=== PATIENT | female | born 1955 | race Caucasian/White ===

== ENCOUNTER 2020-12-13 15:55 | Inpatient (IN) | payer OTHER, SELFPAY ==
--- NOTE | ~2020-12-13 | XR_ITS ---
EXAMINATION: XR CHEST CLINICAL INFORMATION: Overdose COMPARISON: Chest radiographs 04/10/2018, 11/21/2017 TECHNIQUE: Portable upright AP view of the chest was obtained. FINDINGS: The heart is normal in size. The vascularity is normal. There is no airspace consolidation or groundglass opacity. Some mild coarsening central bronchiolar markings is similar to prior remote exam 2018. The costophrenic sulci are clear. The hilar and mediastinal contours are unremarkable. No acute bony abnormality. There is old appearing healed fracture proximal right humerus and probable degenerative changes thoracic spine. XR/XR chest 1V IMPRESSION: Unremarkable examination.
--- NOTE | ~2020-12-13 | CT_ITS ---
EXAMINATION: CT HEAD WITHOUT CONTRAST CLINICAL INFORMATION: Headbanging, patient states head trauma COMPARISON: None TECHNIQUE: Contiguous axial imaging was performed from the skull base to vertex without intravenous administration of contrast. This CT examination was performed using dose optimization techniques as appropriate, variously including the following: *Automated exposure control *Adjustment of mA and/or kV according to patient size (this includes techniques or standardized protocols for targeted exams where dose is matched to indication/reason for exam; i.e. extremities or head) *Use of iterative reconstruction technique DLP: 654.14 mGy-cm FINDINGS: There is no evidence of acute intracranial hemorrhage or territorial infarction. No abnormal mass effect or midline shift is seen. Mildly enlarged retrocerebellar subarachnoid space. Danielson to white matter differentiation is well preserved. No extra-axial fluid collections are identified. The ventricles are normal in size. There is no abnormal attenuation within the brain parenchyma. The osseous structures and soft tissues are normal. The mastoid air cells and visualized portions of the paranasal sinuses are well aerated. CT/CT head/brain wo con IMPRESSION: No acute intracranial pathology.
[2020-12-13 16:07] VITALS: BP 121/72; PULSE 63; RESP 16; TEMP 36.7; O2SAT 95; BMI 36.7
--- NOTE | 2020-12-13 16:34 | ED.OVERDOSE ---
HPI - Overdose General Chief Complaint: Overdose Stated Complaint: SI (overdose) Time Seen by Provider: 12/13/20 16:26 Source: patient Mode of arrival: ambulatory Limitations: no limitations History of Present Illness HPI Narrative: 65 years old female with history of PTSD, major depression, multiple suicide attempt alive, came in after overdosed on her home medication trying to attempt suicide, patient took 20-30 pills of 10 mg of propranolol/500 mg of Seroquel/1200 mg of gabapentin/20 mg of Valium, patient took also 120 mg of ketamine (double of her daily dose). Patient took hold this at 08:00 o'clock in the morning. Patient admitting to chronic depression, stated no point to live . Related Data Allergies Allergy/AdvReac Type Severity Reaction Status Date / Time acetaminophen [Percocet] Allergy Unknown Verified 06/15/19 00:00 ampicillin [AMPICILLIN] Allergy Unknown ERYTHEMA Unverified 07/21/20 15:48 NODOSUM (LEG SWELLING) droperidol [From INAPSINE] Allergy Unknown SEIZURES Unverified 07/21/20 15:48 oxycodone [From PERCOCET] Allergy Unknown DIFFICULTY Unverified 07/21/20 15:48 BREATHING trazodone [TRAZODONE] Allergy Unknown UNKNOWN Unverified 07/21/20 15:48 erythromycin base AdvReac Unknown STOMACH Unverified 07/21/20 15:48 [ERYTHROMYCIN BASE] UPSET Fish Containing Products AdvReac Unknown NAUSEA Unverified 07/21/20 15:48 Erythromycin Allergy Unknown Uncoded 06/15/19 00:00 Inapsine Allergy Unknown Uncoded 06/15/19 00:00 Review of Systems Review of Systems: All other systems are reviewed and are negative Constitutional: Reports as per HPI and Reports no additional constitutional complaints Eyes: Reports as per HPI and Reports no additional eye complaints Reports system reviewed and no additional complaints, except as documented Cardiovascular: Reports as per HPI and Reports no additional cardiovascular complaints Respiratory: Reports as per HPI and Reports no additional respiratory complaints Gastrointestinal: Reports as per HPI and Reports no additional gastrointestinal complaints Genitourinary: Reports no additional female genitourinary complaints Musculoskeletal: Reports no additional musculoskeletal complaints Skin/Breast: Reports system reviewed and no additional complaints, except as docu Psychiatric: Reports no additional psychiatric complaints Endocrine: Reports no additional endocrine complaints Hematologic/Lymphatic: Reports no additional hematologic/lymphatic complaints Allergic/Immunologic: Reports no additional allergic/immunologic complaints Reports system reviewed and no additional complaints, except as documented and Reports Abnormal speech present FOR[facility]LY [facility] Past Medical History Medical History Anxiety High cholesterol HTN (hypertension) Major depression OCD (obsessive compulsive disorder) PTSD (post-traumatic stress disorder) Social History Social History Smoked in Last 30 Days: No Use of substances other than those prescribed or required for medical reasons: No Advance Directives: No Advance Directives Information Provided: No Physical Exam Vital Signs: Vital Signs: Last Vital Signs Temp 98.0 F 12/13/20 18:00 Pulse 61 12/13/20 20:00 Resp 15 12/13/20 20:00 BP 116/69 12/13/20 20:00 Pulse Ox 96 12/13/20 20:00 Body Mass Index 36.7 Vital signs have been reviewed as normal and appeared to be correct. Blood pressure normal. Heart rate normal. Respiration rate normal. Temperature normal. Oxygen saturation normal. Appearance: Alert. Oriented X3. No acute distress. Head: Normal external exam. Normocephalic. Atraumatic. No Martínez signs noted. No raccoon eyes noted Eyes: PERRLA. EOMI. Conjunctiva and sclera normal. Eyelids normal. ENT: EAC normal. TM's Normal. Pharynx normal. Uvula midline. Moist mucous membranes. No trismus noted. No drooling noted. No muffled voice noted. Neck: Normal inspection. Neck supple. FROM. No adenopathy. Thyroid Normal. No meningeal signs. No neck mass noted. CVS: Normal heart rate and rhythm. Heart sound normal. No murmurs noted. Pulses normal throughout. Respiratory: No respiratory distress. Painless inspiration. Breath sounds normal. No wheezes/rales/rhonchi noted. Chest nontender. No accessory muscle usage noted or decreased air movement noted. Abdomen: Soft and nontender. Bowel sounds normal in all 4 quadrants. No distention noted. No organomegaly noted. No visible injury noted. Back: No CVA tenderness. Full range of motion noted. Skin: Skin warm and dry. Normal skin color. Normal skin turgor. No rashes/lesions/lacerations noted. Extremities: No lower extremity edema. Extremities exhibit normal range of motion. Extremities nontender. Neuro: Oriented X 3. No motor deficit. No sensory deficit. Reflexes normal. Psych: Appearance patient dressed and well kempt. Behavior: Appropriate Speech at normal rate, volume, rhythm. Orientation: Oriented x4. Thought process and content: Appropriate SI/HI: Present with serious attempt. Memory: appropriate. Intellect: Appropriate Judgment and insight: Given the suicidal attempt out quality poor. Course Course Course Narrative: Assessment and plan. 65 years old came in after attempt suicide by overdosing on medication, patient was observed in the emergency department for many hours, poison Control was contacted, patient had 2 unchanged EKG with no concerns, labs are unremarkable. Patient was evaluated by care team, patient will be admitted to awaiting for bed availability. Patient was Section 12 still going upstairs. MDM - Overdose Lab Data Attestation: I reviewed the patient's lab results. Result diagrams: 12/13/20 17:53 12/13/20 17:53 Labs: Lab Results 12/13/20 12/13/20 12/13/20 Range/Units 17:53 17:53 17:53 WBC 6.9 (4.8-10.8) X10*3/uL RBC 4.47 (4.20-5.50) X10*6/uL Hgb 13.3 (12.0-16.0) g/dl Hct 40.9 (37-47) % MCV 91.5 (80-98) fL MCH 29.8 (27.0-33.0) pg MCHC 32.5 (31.0-35.0) g/dl RDW 14.2 (11.0-16.0) % Plt Count 142 L (160-400) X10*3/uL MPV 10.6 (9.4-12.3) fL Immature Gran % (Auto) 0.4 (0.0-0.4) % Neut % (Auto) 64.7 (45-73) % Lymph % (Auto) 22.5 (20-40) % [place] % (Auto) 9.1 (2-11) % Eos % (Auto) 2.9 (0-4) % Baso % (Auto) 0.4 (0-2) % Lymph # (Auto) 1.6 (1.2-4.9) X10*3/uL [place] # (Auto) 0.6 (0.1-1.2) X10*3/uL Eos # (Auto) 0.2 (0.0-0.4) X10*3/uL Baso # (Auto) 0.0 (0.0-0.2) X10*3/uL Abs Immat Gran (auto) 0.03 (0.00-0.03) X10*3/uL Absolute Neuts (auto) 4.5 (2.0-8.3) X10*3/uL Absolute Nucleated RBC 0.000 (0.0-0.012) X10*3/uL Nucleated RBC % (auto) 0.0 (0.0-0.2) /100WBC Sodium 142 (135-145) mmol/L Potassium 4.4 (3.3-5.1) mmol/L Chloride 103 (96-108) mmol/L Carbon Dioxide 30 H (22-29) mmol/L Anion Gap 13 (12-20) BUN 14 (9-16) mg/dL Creatinine 0.99 (0.5-1.4) mg/dL Estim Creat Clear Calc 64.9 Estimated GFR 56 Random Glucose 92 (60-115) mg/dL Calcium 8.7 (8.4-10.2) mg/dL Total Bilirubin 0.2 (0.0-1.0) mg/dL Direct Bilirubin < 0.2 (0.0-0.5) mg/dL AST 19 (5-31) U/L ALT 12 (0-31) U/L Alkaline Phosphatase 65 (39-117) U/L Troponin I High Sens (<3.5-17.0) ng/L Total Protein 6.4 L (6.5-8.0) g/dL Albumin 3.7 (3.5-5.0) g/dL Lipase (8-78) U/L Urine Color Urine Appearance Urine pH (5.0-8.0) Ur Specific [place] (1.005-1.025) Urine Protein (NEG-TRACE) MG/DL Urine Glucose (UA) (NEG) MG/DL Urine Ketones (NEG) MG/DL Urine Blood (NEG) Urine Nitrite (NEG) Ur Leukocyte Esterase (NEG) Salicylates < 5.0 L (15-30) mg/dL Urine Opiates Screen (Not Detect) Acetaminophen < 1 (<30) mcg/mL Ur Barbiturates Screen (Not Detect) Ur Phencyclidine Scrn (Not Detect) Ur Amphetamines Screen (Not Detect) U Benzodiazepines Scrn (Not Detect) Urine Cocaine Screen (Not Detect) U Marijuana (THC) Screen (Not Detect) Ethyl Alcohol < 10 mg/dL COVID-19 (MELINA) (Negative) COVID-19 Clin Com 12/13/20 12/13/20 12/13/20 Range/Units 17:53 17:53 18:40 WBC (4.8-10.8) X10*3/uL RBC (4.20-5.50) X10*6/uL Hgb (12.0-16.0) g/dl Hct (37-47) % MCV (80-98) fL MCH (27.0-33.0) pg MCHC (31.0-35.0) g/dl RDW (11.0-16.0) % Plt Count (160-400) X10*3/uL MPV (9.4-12.3) fL Immature Gran % (Auto) (0.0-0.4) % Neut % (Auto) (45-73) % Lymph % (Auto) (20-40) % [place] % (Auto) (2-11) % Eos % (Auto) (0-4) % Baso % (Auto) (0-2) % Lymph # (Auto) (1.2-4.9) X10*3/uL [place] # (Auto) (0.1-1.2) X10*3/uL Eos # (Auto) (0.0-0.4) X10*3/uL Baso # (Auto) (0.0-0.2) X10*3/uL Abs Immat Gran (auto) (0.00-0.03) X10*3/uL Absolute Neuts (auto) (2.0-8.3) X10*3/uL Absolute Nucleated RBC (0.0-0.012) X10*3/uL Nucleated RBC % (auto) (0.0-0.2) /100WBC Sodium (135-145) mmol/L Potassium (3.3-5.1) mmol/L Chloride (96-108) mmol/L Carbon Dioxide (22-29) mmol/L Anion Gap (12-20) BUN (9-16) mg/dL Creatinine (0.5-1.4) mg/dL Estim Creat Clear Calc Estimated GFR Random Glucose (60-115) mg/dL Calcium (8.4-10.2) mg/dL Total Bilirubin (0.0-1.0) mg/dL Direct Bilirubin (0.0-0.5) mg/dL AST (5-31) U/L ALT (0-31) U/L Alkaline Phosphatase (39-117) U/L Troponin I High Sens < 3.5 (<3.5-17.0) ng/L Total Protein (6.5-8.0) g/dL Albumin (3.5-5.0) g/dL Lipase 33 (8-78) U/L Urine Color Urine Appearance Urine pH (5.0-8.0) Ur Specific [place] (1.005-1.025) Urine Protein (NEG-TRACE) MG/DL Urine Glucose (UA) (NEG) MG/DL Urine Ketones (NEG) MG/DL Urine Blood (NEG) Urine Nitrite (NEG) Ur Leukocyte Esterase (NEG) Salicylates (15-30) mg/dL Urine Opiates Screen (Not Detect) Acetaminophen (<30) mcg/mL Ur Barbiturates Screen (Not Detect) Ur Phencyclidine Scrn (Not Detect) Ur Amphetamines Screen (Not Detect) U Benzodiazepines Scrn (Not Detect) Urine Cocaine Screen (Not Detect) U Marijuana (THC) Screen (Not Detect) Ethyl Alcohol mg/dL COVID-19 (MELINA) Negative (Negative) COVID-19 Clin Com See Note 12/13/20 12/13/20 Range/Units 19:50 19:50 WBC (4.8-10.8) X10*3/uL RBC (4.20-5.50) X10*6/uL Hgb (12.0-16.0) g/dl Hct (37-47) % MCV (80-98) fL MCH (27.0-33.0) pg MCHC (31.0-35.0) g/dl RDW (11.0-16.0) % Plt Count (160-400) X10*3/uL MPV (9.4-12.3) fL Immature Gran % (Auto) (0.0-0.4) % Neut % (Auto) (45-73) % Lymph % (Auto) (20-40) % [place] % (Auto) (2-11) % Eos % (Auto) (0-4) % Baso % (Auto) (0-2) % Lymph # (Auto) (1.2-4.9) X10*3/uL [place] # (Auto) (0.1-1.2) X10*3/uL Eos # (Auto) (0.0-0.4) X10*3/uL Baso # (Auto) (0.0-0.2) X10*3/uL Abs Immat Gran (auto) (0.00-0.03) X10*3/uL Absolute Neuts (auto) (2.0-8.3) X10*3/uL Absolute Nucleated RBC (0.0-0.012) X10*3/uL Nucleated RBC % (auto) (0.0-0.2) /100WBC Sodium (135-145) mmol/L Potassium (3.3-5.1) mmol/L Chloride (96-108) mmol/L Carbon Dioxide (22-29) mmol/L Anion Gap (12-20) BUN (9-16) mg/dL Creatinine (0.5-1.4) mg/dL Estim Creat Clear Calc Estimated GFR Random Glucose (60-115) mg/dL Calcium (8.4-10.2) mg/dL Total Bilirubin (0.0-1.0) mg/dL Direct Bilirubin (0.0-0.5) mg/dL AST (5-31) U/L ALT (0-31) U/L Alkaline Phosphatase (39-117) U/L Troponin I High Sens (<3.5-17.0) ng/L Total Protein (6.5-8.0) g/dL Albumin (3.5-5.0) g/dL Lipase (8-78) U/L Urine Color YELLOW Urine Appearance CLEAR Urine pH 5.5 (5.0-8.0) Ur Specific [place] 1.025 (1.005-1.025) Urine Protein NEG (NEG-TRACE) MG/DL Urine Glucose (UA) NEG (NEG) MG/DL Urine Ketones NEG (NEG) MG/DL Urine Blood NEG (NEG) Urine Nitrite NEG (NEG) Ur Leukocyte Esterase NEG (NEG) Salicylates (15-30) mg/dL Urine Opiates Screen Not Detected (Not Detect) Acetaminophen (<30) mcg/mL Ur Barbiturates Screen Not Detected (Not Detect) Ur Phencyclidine Scrn Not Detected (Not Detect) Ur Amphetamines Screen Not Detected (Not Detect) U Benzodiazepines Scrn POSITIVE H (Not Detect) Urine Cocaine Screen Not Detected (Not Detect) U Marijuana (THC) Screen Not Detected (Not Detect) Ethyl Alcohol mg/dL COVID-19 (MELINA) (Negative) COVID-19 Clin Com Imaging Data Chest x-ray: Radiologist's impression: Unremarkable examination ECG Data Interpretation: EKG 1. Normal sinus rhythm at 64 beats per minutes, normal intervals, left axis deviation, nonspecific T-wave inversion and flattening. EKG 2. Normal sinus rhythm at 59 beats per minutes, left axis deviation, normal intervals, no change from the previous EKG. Discharge Plan Discharge Clinical Impression: Drug overdose, Suicide attempt by multiple drug overdose, Major depression Patient Disposition: Home, Self-Care
--- NOTE | 2020-12-13 16:42 | ECG_ITS ---
Test Reason : ABNORMAL ECG Blood Pressure : / mmHG Vent. Rate : 059 BPM Atrial Rate : 059 BPM P-R Int : 176 ms QRS Dur : 090 ms QT Int : 420 ms P-R-T Axes : 031 -03 029 degrees QTc Int : 415 ms Sinus bradycardia Otherwise normal ECG When compared with ECG of 13-DEC-2020 16:12, No significant change was found Referred By: Ayala Coreas Electronically Signed By:VIRGINIA GUTHRIE
[2020-12-13 17:16] VITALS: BP 122/54; PULSE 61; RESP 14; O2SAT 97
[2020-12-13] MEDS: 0.9 % Sodium Chloride 1,000 ML 999 ML IVCONT (17:24)
[2020-12-13 18:00] VITALS: BP 130/60; PULSE 66; RESP 16; TEMP 36.7; O2SAT 99
[2020-12-13 18:19] LABS: PLT CLUMP 1; SCAN SMEAR FLAG 1
[2020-12-13 18:21] LABS: Basophils Percent Auto 0.4 % (0-2); Eosinophils Absolute Auto 0.2 X10*3/uL (0.0-0.4); Eosinophils Percent Auto 2.9 % (0-4); Hematocrit 40.9 % (37-47); Hemoglobin 13.3 g/dl (12.0-16.0); Imm Gran Abs Auto 0.03 X10*3/uL (0.00-0.03); Imm Gran Pct Auto 0.4 % (0.0-0.4); Lymphocytes Absolute Auto 1.6 X10*3/uL (1.2-4.9); Lymphocytes Percent Auto 22.5 % (20-40); Mean Corpuscular HGB Conc 32.5 g/dl (31.0-35.0); Mean Corpuscular Hemoglobin 29.8 pg (27.0-33.0); Mean Corpuscular Volume 91.5 fL (80-98); Mean Platelet Volume 10.6 fL (9.4-12.3); Monocytes Absolute Auto 0.6 X10*3/uL (0.1-1.2); Monocytes Percent Auto 9.1 % (2-11); Neutrophils Absolute Auto 4.5 X10*3/uL (2.0-8.3); Neutrophils Percent Auto 64.7 % (45-73); Platelet Count 142 X10*3/uL (160-400); Red Blood Count 4.47 X10*6/uL (4.20-5.50); Red Cell Distribution Width 14.2 % (11.0-16.0); White Blood Count 6.9 X10*3/uL (4.8-10.8)
[2020-12-13 18:22] LABS: MANUAL DIFF FLAG NO
[2020-12-13 18:31] LABS: Ethanol < 10 mg/dL
[2020-12-13 18:34] LABS: Lipase 33 U/L (8-78)
[2020-12-13 18:37] VITALS: BP 117/55; PULSE 61; RESP 15; O2SAT 96
[2020-12-13 18:39] LABS: Troponin-I High Sensitivity < 3.5 ng/L (<3.5-17.0)
[2020-12-13 18:41] LABS: Acetaminophen LAB < 1 mcg/mL (<30); Alanine Aminotransferase 12 U/L (0-31); Albumin Level 3.7 g/dL (3.5-5.0); Alkaline Phosphatase 65 U/L (39-117); Anion Gap 13 (12-20); Aspartate Amino Transferase 19 U/L (5-31); Bilirubin Direct < 0.2 mg/dL (0.0-0.5); Bilirubin Total 0.2 mg/dL (0.0-1.0); Blood Urea Nitrogen 14 mg/dL (9-16); Calcium 8.7 mg/dL (8.4-10.2); Carbon Dioxide 30 mmol/L (22-29); Chloride 103 mmol/L (96-108); Creatinine Clr Calc Pharmacy 64.9; Estimated Glomerular Filt Rate 56; Glucose Random 92 mg/dL (60-115); Potassium 4.4 mmol/L (3.3-5.1); Salicylate < 5.0 mg/dL (15-30); Sodium 142 mmol/L (135-145); Total Protein 6.4 g/dL (6.5-8.0)
[2020-12-13 19:02] LABS: COVID-19 Test Negative (Negative); IDNOW Serial# 9DD0AD1C
[2020-12-13 19:57] LABS: Glucose Urine UA NEG (NEG); Leukocyte Esterase Urine NEG (NEG); Nitrite Urine NEG (NEG); PH 5.5 (5.0-8.0); Specific Gravity - Urine 1.025 (1.005-1.025); Urine Blood NEG (NEG); Urine Ketones NEG (NEG); Urine Protein NEG (NEG-TRACE)
[2020-12-13 19:58] LABS: Appearance Urine CLEAR; Color Urine YELLOW
[2020-12-13 20:00] VITALS: BP 116/69; PULSE 61; RESP 15; O2SAT 96
[2020-12-13 20:22] LABS: Amphetamine Screen Urine Not Detected (Not Detect); Barbiturates, Urine Not Detected (Not Detect); Benzodiazepines Screen Urine POSITIVE (Not Detect); Cannabinoid Screen Urine Not Detected (Not Detect); Cocaine Screen Urine Not Detected (Not Detect); Opiate Screen Urine Not Detected (Not Detect); Phencyclidine Screen Urine Not Detected (Not Detect)
--- NOTE | 2020-12-13 21:49 | PC.NURSE ---
Patient just got transferred from main ED, called care team and received report that patient has been assessed, disposition is [id number] inpatient bed search, possible admission to [facility] in the morning if there is bed opening, patient ambulated without gait deficits, currently on phone talking to her , denied distress, will continue to monitor.
--- NOTE | 2020-12-13 22:10 | MHC.CARE ---
CARE team evaluated pt with disposition for inpt psych admission, likely [facility] admission tomorrow.
[2020-12-13 23:51] VITALS: PULSE 119
[2020-12-14] VITALS (7 sets, daily range): BP systolic 115–137; BP diastolic 53–66; PULSE 63–72; RESP 16–18; TEMP 35.3–36.2; O2SAT 94–97
--- NOTE | 2020-12-14 | ECG_ITS ---
Test Reason : OD Blood Pressure : / mmHG Vent. Rate : 064 BPM Atrial Rate : 064 BPM P-R Int : 162 ms QRS Dur : 090 ms QT Int : 398 ms P-R-T Axes : 033 001 025 degrees QTc Int : 410 ms Normal sinus rhythm Normal ECG When compared with ECG of 30-MAR-2020 15:52, No significant change was found Referred By: Ayala Coreas Electronically Signed By:VIRGINIA GUTHRIE
[2020-12-14] MEDS: diazePAM 5 MG TABLET 10 MG PO (00:01)
[2020-12-14] MEDS: QUEtiapine Fumarate 200 MG TABLET PO ×2 (00:01→21:56)
[2020-12-14] MEDS: Acetaminophen 325 MG TABLET 650 MG PO ×2 (05:46→16:28)
--- NOTE | 2020-12-14 07:53 | PC.NURSE ---
pt denies si , states that she only wanted to sleep for a little bit and get a break , anxious about finances and cost for her and her paying for hospitalization as they have been getting $bills for healthcare as they switched insurance recently, i told her she would get the opportunity to talk w the CARE team again
[2020-12-14] MEDS: Gabapentin 400 MG CAPSULE PO ×4 (08:19→21:57)
[2020-12-14] MEDS: QUEtiapine Fumarate 100 MG TABLET PO ×2 (08:20→16:15)
[2020-12-14] MEDS: Methylphenidate HCl 10 MG TABLET 20 MG PO ×3 (08:20→16:13)
[2020-12-14] MEDS: Cyanocobalamin (Vitamin B-12) 1,000 MCG TABLET 1000 MCG PO (08:20)
[2020-12-14] MEDS: diazePAM 5 MG TABLET PO ×2 (08:20→16:13)
[2020-12-14] MEDS: Propranolol HCL 10 MG TABLET PO ×2 (08:20→16:17)
--- NOTE | 2020-12-14 08:34 | PC.NURSE ---
pt states she was weened off zoloft recently and didn't want to take
--- NOTE | 2020-12-14 09:10 | ECG_ITS ---
Test Reason : MEDCLEARANCE Blood Pressure : / mmHG Vent. Rate : 062 BPM Atrial Rate : 062 BPM P-R Int : 158 ms QRS Dur : 096 ms QT Int : 404 ms P-R-T Axes : 031 004 022 degrees QTc Int : 410 ms Normal sinus rhythm Normal ECG When compared with ECG of 13-DEC-2020 19:04, No significant change was found Referred By: Joana Hicks Electronically Signed By:TRA MENDEZ MD
[2020-12-14] MEDS: QUEtiapine Fumarate 50 MG TABLET 100 MG PO (13:16)
--- NOTE | 2020-12-14 13:18 | PC.NURSE ---
medicated as ordered, states she normally takes her meds on a bit of a different schedule than what the pharmacy set up, renate added as pt states she normally has this as a prn, neuronit was given a little early at pt request, alert speech clear, pleasant
--- NOTE | 2020-12-14 13:25 | MHC.CARE ---
CARE team had brief check in with pt this am at 1030am at pts request who is a current bedsearch for [facility] from last night by CARE team. Pt was requesting to speak w CARE team this am to due to her desire to dc home. Pt feels that she does not need an admission and minimized the OD that prompted her seeking help. Pt stated her Psychiatrist told her to come to the ED for medical clearance and subsequent admission in which a bed was reportedly held. Pt is saying she does not feel she would benefit from this and she feels the financial aspect would cause her more distress. Pt also stated but my would make it happen finance antonio if I needed it . T/w informed pt that this info will be passed along to CARE team for when she can be re-assessed or have an update. T/w suggested that Dr Jaeger weigh in. T/w reached out [phone] to Dr Jaeger's outpatient office asking for call to CARE team regards this matter. T/w informed pt and ED and the OP office that t/w is in a LOC assessment therefore cannot re-eval this pt in this moment which was well received.
--- NOTE | 2020-12-14 14:12 | MHC.CARE ---
T/w rec call back from Pts OP Psychiatrist Dr Jaeger who provided info that he referred pt to seek Emergency services due to pts reported OD on propanolol and ketamine at pts report in the morning yesterday and within 2 mins of their tx session starting pt reported this to him and was observed slurring her words and in need of acute care. He stated with certainty that pt will need IPLOC and to continue with the plan to admit to [facility] despite pts reports of wishing to discharge home. [facility] aware and holding this bed.
--- NOTE | 2020-12-14 14:28 | PC.NURSE ---
resting in bed and informed that dr osborne wants her to go to M[facility] pt accepted this and agreed with him , he knows me and he's concerned for good reason , now agreeable with admission,
[2020-12-14] MEDS: Ibuprofen 600 MG TABLET PO (21:55)
[2020-12-14] MEDS: Propranolol HCL 20 MG TABLET PO (21:56)
[2020-12-14] MEDS: diazePAM 10 MG TABLET PO (21:57)
--- NOTE | 2020-12-15 00:51 | PC.ADMIT ---
A 65 year old white female was [facility] to the [facility] at 1828 as a CV following referral from pt's outpatient psychiatrist, Dr Jaeger, and from [facility]. Pt [place] been [place] [facility] and elsewhere numerous times. Pt was briought to [facility] ED at recommendation of her outpatient psychiatrist, Dr. Jaeger, after pt disclosed during an appointment at 2:00 PM that she had made an intentional overdose attempt with prescribed medications. Pt reported taking 20-30 tabs of propranolol 10mg, 500mg seroquel, 1200mg gabapentin, 20mg valium, and 120mg IN ketamine. Pt reported that she is in a constant state of suicidality that has been chronic for 36 years. Pt said she is tired of it and wants to . Pt was irritated early in assessment, saying this psych admission is totally different and everyone is using the same meds and approaches. Pt reports poor sleep and appetite as well as no energy or motivation. Pt expressed worry that her insurance will not fully cover her stay and that it will be difficult for she and her to afford. Pt has many providers and is H involved. Pt reported a serious O/D and suicide attempt in May rthat caused her to be hospitalized for 27 days; pt said she was very angry she was still alive when she awakened. Pt does not have history of substance or Etoh; WOLF was positive only for benzos which are prescribed. Medical issues include: sleep apnea by history, back and knwee pain, high cholesterol, GERD, arthritis, and benign breast tumor.Pt was initially admitted on 15 minute safety checks, but was placed on 5 minute safety checks with an unlocked bathroom after reporting SI. [id number] done and admitting orders obtained. Pt is resting in room at this time.
--- NOTE | 2020-12-15 01:16 | PC.NURSE ---
Pt wants the following changes made to her medications: Gabapentin 400mg TID PO is currently given at 0900, 1500, 2100. Pt wants it to be given at 0800, 1300, 2100. Propranolol 10mg BID PO is currently given at 0900 and 1700. Pt wants it to be given at 0800 and 1300. Seroquel 100mg BID PO is being given at 0900 and 1700. Pt wants it to be given at 0800 and 1300. Additionally pt says Dr. Jaeger had a seroquel 100mg PO Daily PRN that she usually takes at 1600. Pt reports she no longer takes Sertraline 200mg; she said med was d/c'd by Dr Jaeger. Pt reports she is not allergic to Tylenol, that she takes it at home regularly and would like PRN Tylenol prescribed to her while she is here. Pt said it was erroneously reported as causing difficulty breathing in 1993 when she had percocet following surgery. Pt said it was the oxycodone that caused the difficulty breathing not the Tylenol. Pt did receive Tylenol in the ED as a one-time order. Pt reports she is taking a ketamine nasal spray that is prescibed for her 5 days a week with two days off, usually and Saturday. Pt reports she missed a dose on 12/14 and will need it tomorrow. Pt said the ketamine takes 1/2 hour to administer and once begun she can't interrupt it. Pt says it is 2.5 hours before she is fully functional. [place] [facility] Med is prescribed through Dr. Jaeger if more information is needed.
[2020-12-15 06:05] VITALS: BP 119/64; PULSE 58; RESP 16; TEMP 36.3; O2SAT 97
[2020-12-15 09:18] VITALS: BP 122/65; PULSE 66
[2020-12-15] MEDS: diazePAM 5 MG TABLET PO (09:18)
[2020-12-15] MEDS: QUEtiapine Fumarate 100 MG TABLET PO ×2 (09:18→15:57)
[2020-12-15] MEDS: Gabapentin 400 MG CAPSULE PO ×3 (09:18→22:02)
[2020-12-15] MEDS: Propranolol HCL 10 MG TABLET PO ×2 (09:18→15:52)
[2020-12-15] MEDS: Methylphenidate HCl 10 MG TABLET 20 MG PO ×3 (09:18→15:57)
[2020-12-15] MEDS: Cyanocobalamin (Vitamin B-12) 1,000 MCG TABLET 1000 MCG PO (09:18)
[2020-12-15] MEDS: Flu Vacc QS2020-21(6mos up)/PF 0.5 ML SYRINGE IM (11:26)
--- NOTE | 2020-12-15 15:31 | P.HPPS_ITS ---
HPI Chief Complaint: DEPRESSION Sources of Information: patient interviewed, chart reviewed and crisis/core team assessment reviewed HPI Narrative: 65 yo female, history of PTSD, recurrent major depression,severe and borderline personality disorder, presented to ER after disclosing to Dr. Jaeger, her out patient psychiatrist that she had overdosed on medications with intent to end her life. Possible contributing factor is her is about to retire and she reports she wants him to enjoy life-she is feeling like a burden. Pt has a history of suicidality for 36 years. Pt reportedly ingested 20-30 pills of 10 mg propranolol, 500 mg seroquel, 1200 mg gabapentin, 20 valium and 120 mg ketamine. Pt has had multiple trials of medications, along with ECT and TMS. She currently is working with Ketamine and asks that we consider her for IV Ketamine as depression is persistent and non relenting. She describes her history of depression with no relief, she is alive for her of 40 years as I promised . 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 [facility] Medical History (Updated 12/15/20 @ 16:16 by Pat Dumont, ANTONIO) Anxiety Borderline personality disorder High cholesterol HTN (hypertension) Major depression OCD (obsessive compulsive disorder) PTSD (post-traumatic stress disorder) Family History: we did not discuss this in our meeting today Social History: for 40 years. 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 Substance History: denies Trauma History: yes Diagnostics Vital Signs (24Hr): Vital Signs - 24 hr 12/14/20 16:17 12/14/20 19:00 12/14/20 21:56 Temperature 97.2 F Pulse Rate 71 72 72 Respiratory Rate Blood Pressure 121/65 123/60 123/60 Pulse Oximetry 12/15/20 06:05 12/15/20 09:18 Temperature 97.3 F Pulse Rate 58 66 Respiratory Rate 16 Blood Pressure 119/64 122/65 Pulse Oximetry 97 Body Mass Index 36.7 Labs Results: 12/13/20 17:53 12/13/20 17:53 Labs: Laboratory Results - last 48 hr 02/09/21 02/09/21 02/09/21 17:53 17:53 17:53 WBC 6.9 RBC 4.47 Hgb 13.3 Hct 40.9 MCV 91.5 MCH 29.8 MCHC 32.5 RDW 14.2 Plt Count 142 L MPV 10.6 Immature Gran % (Auto) 0.4 Neut % (Auto) 64.7 Lymph % (Auto) 22.5 [place] % (Auto) 9.1 Eos % (Auto) 2.9 Baso % (Auto) 0.4 Lymph # (Auto) 1.6 [place] # (Auto) 0.6 Eos # (Auto) 0.2 Baso # (Auto) 0.0 Abs Immat Gran (auto) 0.03 Absolute Neuts (auto) 4.5 Absolute Nucleated RBC 0.000 Nucleated RBC % (auto) 0.0 Sodium 142 Potassium 4.4 Chloride 103 Carbon Dioxide 30 H Anion Gap 13 BUN 14 Creatinine 0.99 Estim Creat Clear Calc 64.9 Estimated GFR 56 Random Glucose 92 Calcium 8.7 Total Bilirubin 0.2 Direct Bilirubin < 0.2 AST 19 ALT 12 Alkaline Phosphatase 65 Troponin I High Sens Total Protein 6.4 L Albumin 3.7 Lipase Urine Color Urine Appearance Urine pH Ur Specific [place] Urine Protein Urine Glucose (UA) Urine Ketones Urine Blood Urine Nitrite Ur Leukocyte Esterase Salicylates < 5.0 L Urine Opiates Screen Acetaminophen < 1 Ur Barbiturates Screen Ur Phencyclidine Scrn Ur Amphetamines Screen U Benzodiazepines Scrn Urine Cocaine Screen U Marijuana (THC) Screen Ethyl Alcohol < 10 COVID-19 ([facility]ELINA) COVID-19 Clin Com 12/13/20 12/13/20 12/13/20 17:53 17:53 18:40 WBC RBC Hgb Hct MCV MCH MCHC RDW Plt Count MPV Immature Gran % (Auto) Neut % (Auto) Lymph % (Auto) [place] % (Auto) Eos % (Auto) Baso % (Auto) Lymph # (Auto) [place] # (Auto) Eos # (Auto) Baso # (Auto) Abs Immat Gran (auto) Absolute Neuts (auto) Absolute Nucleated RBC Nucleated RBC % (auto) Sodium Potassium Chloride Carbon Dioxide Anion Gap BUN Creatinine Estim Creat Clear Calc Estimated GFR Random Glucose Calcium Total Bilirubin Direct Bilirubin AST ALT Alkaline Phosphatase Troponin I High Sens < 3.5 Total Protein Albumin Lipase 33 Urine Color Urine Appearance Urine pH Ur Specific [place] Urine Protein Urine Glucose (UA) Urine Ketones Urine Blood Urine Nitrite Ur Leukocyte Esterase Salicylates Urine Opiates Screen Acetaminophen Ur Barbiturates Screen Ur Phencyclidine Scrn Ur Amphetamines Screen U Benzodiazepines Scrn Urine Cocaine Screen U Marijuana (THC) Screen Ethyl Alcohol COVID-19 ([facility]ELINA) Negative COVID-19 Clin Com See Note 12/13/20 12/13/20 19:50 19:50 WBC RBC Hgb Hct MCV MCH MCHC RDW Plt Count MPV Immature Gran % (Auto) Neut % (Auto) Lymph % (Auto) [place] % (Auto) Eos % (Auto) Baso % (Auto) Lymph # (Auto) [place] # (Auto) Eos # (Auto) Baso # (Auto) Abs Immat Gran (auto) Absolute Neuts (auto) Absolute Nucleated RBC Nucleated RBC % (auto) Sodium Potassium Chloride Carbon Dioxide Anion Gap BUN Creatinine Estim Creat Clear Calc Estimated GFR Random Glucose Calcium Total Bilirubin Direct Bilirubin AST ALT Alkaline Phosphatase Troponin I High Sens Total Protein Albumin Lipase Urine Color YELLOW Urine Appearance CLEAR Urine pH 5.5 Ur Specific [place] 1.025 Urine Protein NEG Urine Glucose (UA) NEG Urine Ketones NEG Urine Blood NEG Urine Nitrite NEG Ur Leukocyte Esterase NEG Salicylates Urine Opiates Screen Not Detected Acetaminophen Ur Barbiturates Screen Not Detected Ur Phencyclidine Scrn Not Detected Ur Amphetamines Screen Not Detected U Benzodiazepines Scrn POSITIVE H Urine Cocaine Screen Not Detected U Marijuana (THC) Screen Not Detected Ethyl Alcohol COVID-19 ([facility]ELINA) COVID-19 Clin Com Imaging Radiology Impressions: ITS Impressions Chest X-Ray 12/13/20 16:42 IMPRESSION: Unremarkable examination. Meds/Allergies Meds Home Medications Al Hydroxide/Mg Hydroxide (Magnesium Hydrox/Alum Hydrox 30 Ml Oral.Susp) 30 ml PO Q6H PRN PRN Reason: Heartburn/Nausea Cyanocobalamin (Cyanocobalamin (Vitamin B-12) 1,000 Mcg Tablet) 1,000 mcg PO DAILY [facility] Last Admin: 12/15/20 09:18 Dose: 1,000 mcg Documented by: Diazepam (Diazepam 10 Mg Tablet) 10 mg PO BEDTIME MARC Last Admin: 12/14/20 21:57 Dose: 10 mg Documented by: Diazepam (Diazepam 5 Mg Tablet) 5 mg PO BID@0900,1700 [facility] Last Admin: 12/15/20 16:28 Dose: Not Given Documented by: Fluticasone Propionate (Fluticasone Propionate Nasal 16 Gm [place]) 1 spray NOSTRIL-B BID PRN PRN Reason: congestion Gabapentin (Gabapentin 400 Mg Capsule) 400 mg PO TID [facility] Last Admin: 12/15/20 14:59 Dose: 400 mg Documented by: Magnesium Hydroxide (Milk Of Magnesia 30 Ml Oral.Susp) 30 ml PO DAILY PRN PRN Reason: Constipation Methylphenidate HCl (Methylphenidate Hcl 10 Mg Tablet) 20 mg PO TIDWM [facility] Last Admin: 12/15/20 15:57 Dose: 20 mg Documented by: Pt Own: Ketamine (Nasal [place]) 1 each NOSTRIL-B [id number] [facility] Propranolol HCl (Propranolol Hcl 10 Mg Tablet) 10 mg PO BID@0900,1700 [facility]; Protocol Last Admin: 12/15/20 16:28 Dose: Not Given Documented by: Propranolol HCl (Propranolol Hcl 20 Mg Tablet) 20 mg PO BEDTIME [facility]; Protocol Last Admin: 12/14/20 21:56 Dose: 20 mg Documented by: Quetiapine Fumarate (Quetiapine Fumarate 200 Mg Tablet) 200 mg PO BEDTIME [facility] Last Admin: 12/14/20 21:56 Dose: 200 mg Documented by: Quetiapine Fumarate (Quetiapine Fumarate 100 Mg Tablet) 100 mg PO BID@0900,1700 [facility] Last Admin: 12/15/20 15:57 Dose: 100 mg Documented by: Allergies Allergies Allergy/AdvReac Type Severity Reaction Status Date / Time acetaminophen [Percocet] Allergy Unknown Unknown Verified 12/14/20 15:48 ampicillin [AMPICILLIN] Allergy Unknown ERYTHEMA Unverified 07/21/20 15:48 NODOSUM (LEG SWELLING) droperidol [From INAPSINE] Allergy Unknown SEIZURES Unverified 07/21/20 15:48 oxycodone [From PERCOCET] Allergy Unknown DIFFICULTY Unverified 07/21/20 15:48 BREATHING trazodone [TRAZODONE] Allergy Unknown UNKNOWN Unverified 07/21/20 15:48 erythromycin base AdvReac Unknown STOMACH Unverified 07/21/20 15:48 [ERYTHROMYCIN BASE] UPSET Fish Containing Products AdvReac Unknown NAUSEA Unverified 07/21/20 15:48 Erythromycin Allergy Unknown Unknown Uncoded 12/14/20 15:48 Inapsine Allergy Unknown Unknown Uncoded 12/14/20 15:48 Mental Status Exam Mental Status Exam Patient Appearance: Fatigued and Appropriate Patient Orientation: Person, Place, Time and Situation Level of Consciousness: Awake, Appropriate and Alert Patient Behavior: Appropriate, Talkative, Cooperative, Fatigued and Good Eye Contact Mood Description: Apathetic, Depressed, Fearful, Hostile, Anxious, Angry, Flat and Sad Affect Description: Constricted Patient Cognition Impaired: No Ability to Follow Directions: Good Speech Pattern: Spontaneous Speech Memory Description: Intact Hallucinations: None Delusions: Not Present Thought Process: Rumination Thought Content: positive for [place], positive for Obsessional Thoughts, positive for Circumstantial and positive for Perseveration Depressive Symptoms: Increased Anxiety, Increased Irritability, Loss of Int. in Activity, Feelings of Worthlessness, Hopelessness, Unhappiness, Increased Fatigue, Thoughts of /Suicide (reports consistent for 36 years), Low Self Esteem, Loss of Energy and Difficulty Concentrating Abnormal Motor Activity Signs and Symptoms: Agitation Judgement: Poor Assessment & Plan Assessment & Plan (1) Major depression: Status: Acute Qualifiers: Major depression recurrence: recurrent Code(s): F32.9 - Major depressive disorder, single episode, unspecified Assessment and Plan: -Pt asks that we explore IV Ketamine treatment. Team is making inquiries to insurance and facilities for information. -She is well known to the psychiatric service. She was approached by Dr. Shearer and was asked if she would like to trial a brief ECT intervention to offer relief of sx as by history this has been helpful and multiple medicine trials have not. She declined at this time. -Consult with Dr. Jaeger- The next trials to be considered are Trintellix, Luvox, Paxil. Will discuss with pt. Clarification of intranasal Ketamine with Dr. Jaeger and Kade of [facility]. order to read.... Ketamine 10 mg per spray, 60 mg daily, 5 days per week, 3 sprays in each nostril each evening for sleep. Pt is encouraged to use this at 8-9pm prior to retiring for the evening. - (2) Borderline personality disorder: Status: Acute Code(s): F60.3 - Borderline personality disorder (3) PTSD (post-traumatic stress disorder): Status: Acute Code(s): F43.10 - Post-traumatic stress disorder, unspecified (4) Suicide attempt by multiple drug overdose: Status: Acute Qualifiers: Encounter type: initial encounter Qualified Code(s): T50.912A - Poisoning by multiple unspecified drugs, medicaments and biological substances, intentional self-harm, initial encounter Code(s): T50.912A - Poisoning by multiple unspecified drugs, medicaments and biological substances, intentional self-harm, initial encounter Patient educated on: therapeutic strategies Informed Consent: understands and further education needed Reason for continued inpatient stay Substantial Risk for: harm to self, harm to others, inability to function and rapid decompensation
[2020-12-15 15:52] VITALS: BP 151/91; PULSE 87
[2020-12-15] MEDS: diazePAM 10 MG TABLET PO ×2 (15:52→22:01)
[2020-12-15] MEDS: OLANZapine 5 MG TABLET PO (17:41)
[2020-12-15 18:00] VITALS: BP 151/91; PULSE 85; TEMP 37.1
--- NOTE | 2020-12-15 19:57 | PC.NURSE ---
requesting to be involved in team meeting wanting to advocate for self to have ketamine treatment in am. reports interferes with sleep and that it hepls her energize self.
[2020-12-15 22:01] VITALS: BP 151/91; PULSE 91
[2020-12-15] MEDS: QUEtiapine Fumarate 200 MG TABLET PO (22:01)
[2020-12-15] MEDS: Propranolol HCL 20 MG TABLET PO (22:01)
[2020-12-16 06:15] VITALS: BP 102/59; PULSE 67; RESP 18; TEMP 36.4; O2SAT 94
[2020-12-16] MEDS: Methylphenidate HCl 10 MG TABLET 20 MG PO ×2 (08:57→15:28)
[2020-12-16] MEDS: Gabapentin 400 MG CAPSULE PO ×3 (08:58→21:48)
[2020-12-16] MEDS: diazePAM 5 MG TABLET PO ×2 (08:58→14:48)
[2020-12-16] MEDS: QUEtiapine Fumarate 100 MG TABLET PO ×4 (08:58→17:09)
[2020-12-16 09:01] VITALS: BP 157/78; PULSE 83
[2020-12-16] MEDS: Propranolol HCL 10 MG TABLET PO ×2 (09:01→14:49)
[2020-12-16 11:49] VITALS: BP 129/61; PULSE 71; TEMP 36.9
[2020-12-16 14:49] VITALS: BP 126/59; PULSE 86
[2020-12-16] MEDS: Acetaminophen 325 MG TABLET 650 MG PO (17:11)
[2020-12-16] MEDS: chlorproMAZINE HCl 25 MG TABLET PO (17:44)
--- NOTE | 2020-12-16 18:10 | PC.NURSE ---
at approx 1630 pt became agitated related to her medications not being properly ordered. CAW was on the unit at the time and spoke with the pt. Pt began ripping apart her pillow case, pt was not verbalizing that she would not harm herself with the pillow scaps. pt has previously stated that she was going to harm herself due to the problems with her medications, stating you have been warned . pt was irritable, agitated and angry, slamming her bedroom door and not willing to redirection. security was called to get the ripped pillow case away from the pt as she was not willing to return it to staff. with talking to t/w, security and the pts nurse who was able to get the pt her medications she later deescalated. pt reported that she just didn't want to scratch at her face but also reported that she hadn't made up her mind about using the pillow scraps to harm herself . pt was accepting of the pillow case being taken from her and stated I'll just rip apart another . t/w sat with the pt for some time , continued to de-escalate her and pt reported that if she ripped another she would not use the scaps to harm herself. charge coordinator aware.
--- NOTE | 2020-12-16 18:35 | HO.PSYCHPN ---
Subjective Subjective Date of Service: 12/17/20 Reason For Visit: DEPRESSION Subjective Notes: Conditional Voluntary Interim History: Labile, Rageful at times. Initially began the day demanding to go to team meeting to read a two page letter of complaint regarding Ketamine timing, medicine timing and team responses to her needs. Reviewed individually with pt. Cross reference to MR for written details. Meds reviewed, timing changed on Ketamine, prn's. Contact with Ketamine [facility] Technology Advisor of [facility] who will have a discussion with Dr. Jaeger next week, as pt is requesting IV Ketamine.. Ketamine intranasal completed. Agitated with more complaints/distress in the afternoon regarding tylenol prn, Seroquel prn and Mellaril prn which was addressed. Mellaril is not available. Pt reports Thorazine has been helpful. No trial of Perphenazine which may be a consideration. At one point, pt ripping pillowcases and raging verbally. Prn medication offered. Consistent SI present. Dr. Jaeger checking in on pt frequently today and available to team for discussion of successful interventions. Cross reference to event note as well. Med timing review with pt who requests..... 0900: Seroquel 100 mg, Gabapentin 400 mg, Valium 5 mg, Propranolol 10 mg, Ritalin 20 mg, Vitamin B 1000: Ketamine nasal treatment 1300: Seroquel 100 mg, Gabapentin 400 mg, Valium 5 mg, Propranolol 10 mg, Ritalin 20 mg 1600: Ritalin 20 mg 2100: Seroquel 200 mg, Gabapentin 400 mg, Valium 10 mg, Propranolol 20 mg Timings changed in [place]. Asked pt to review with her primary nurse. PRN's to be added after pt reviews with her nurse. 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 It was my most lethal OD . I was furious that I was still alive when I awoke. Reports suicidality is always on her mind, it never goes away and she feels that no one believes her. Informed pt that we are prepared to work with that during her admission. Assured pt we would do our best to provide care, support, consultation and treatment. Medication Compliance: Yes Side effects from medications: No Attending Groups: No Review of Systems Psychiatric: Reports anxiety, Reports depression, Reports difficulty concentrating, Reports hopelessness, Reports irritability, Reports anhedonia, Reports mood swings and Reports suicidal ideation (SI is persistent) Mental Status Exam Mental Status Exam Patient Appearance: Appropriate Patient Orientation: Person, Place and Time Level of Consciousness: Awake and Alert Patient Behavior: Talkative, Suspicious, Aggressive, Anxious, Fearful, Fatigued and Good Eye Contact Mood Description: Apathetic, Withdrawn, Depressed, Fearful, Hostile, Labile, Angry, Apprehensive and Expansive Affect Description: Labile Patient Cognition Impaired: No Ability to Follow Directions: Good Speech Pattern: Clear, Perseverating, Spontaneous Speech and Soft-Spoken Hallucinations: None Delusions: Paranoid Ideation Thought Process: Distracted and Rumination Thought Content: positive for Obsessional Thoughts, positive for Perseveration, positive for Preoccupation, positive for Logical and positive for Suicidal Ideation (persistent) Depressive Symptoms: Increased Irritability, Loss of Int. in Activity, Feelings of Worthlessness, Hopelessness, Feelings of Guilt, Unhappiness, Increased Fatigue, Thoughts of /Suicide, Low Self Esteem, Loss of Energy and Difficulty Concentrating Abnormal Motor Activity Signs and Symptoms: Aggression, Agitation and Restlessness Judgement: Poor Diagnostics Vital Signs (24Hr): Vital Signs - 24 hr 12/15/20 22:01 12/16/20 06:15 12/16/20 09:01 Temperature 97.5 F Pulse Rate 91 67 83 Respiratory Rate 18 Blood Pressure 151/91 H 102/59 L 157/78 H Pulse Oximetry 94 12/16/20 11:49 12/16/20 14:49 Temperature 98.4 F Pulse Rate 71 86 Respiratory Rate Blood Pressure 129/61 126/59 L Pulse Oximetry Body Mass Index 36.7 Labs Results: 12/13/20 17:53 12/13/20 17:53 Imaging Radiology Impressions: ITS Impressions Chest X-Ray 12/13/20 16:42 IMPRESSION: Unremarkable examination. Medications Medications Current Medications Generic Name Dose Route Start Last Admin Trade Name Freq PRN Reason Stop Dose Admin Acetaminophen 650 mg 12/16/20 16:43 12/16/20 17:11 Acetaminophen 325 Mg Tablet PO 650 mg Q6H PRN Administration Pain, Mild (Pain Scale 1-3) Al Hydroxide/Mg Hydroxide 30 ml 12/14/20 18:21 Magnesium Hydrox/Alum Hydrox 30 Ml Oral.Susp PO Q6H PRN Heartburn/Nausea Chlorpromazine HCl 25 mg 12/16/20 17:04 12/16/20 17:44 Chlorpromazine Hcl 25 Mg Tablet PO 25 mg TID PRN Administration agitation Cyanocobalamin 1,000 mcg 12/14/20 09:00 12/16/20 09:02 Cyanocobalamin (Vitamin B-12) 1,000 Mcg Tablet PO Not Given DAILY MARC Diazepam 10 mg 12/14/20 21:00 12/15/20 22:01 Diazepam 10 Mg Tablet PO 10 mg BEDTIME MARC Administration Diazepam 5 mg 12/16/20 13:00 12/16/20 14:48 Diazepam 5 Mg Tablet PO 5 mg 0900,1300 MARC Administration Fluticasone Propionate 1 spray 12/14/20 02:08 Fluticasone Propionate Nasal 16 Gm [place] NOSTRIL-B BID PRN congestion Gabapentin 400 mg 12/16/20 13:00 12/16/20 14:48 Gabapentin 400 Mg Capsule PO 400 mg DAILY@0900,1300,2100 MARC Administration Magnesium Hydroxide 30 ml 12/14/20 18:21 Milk Of Magnesia 30 Ml Oral.Susp PO DAILY PRN Constipation Methylphenidate HCl 20 mg 12/16/20 13:00 12/16/20 15:28 Methylphenidate Hcl 10 Mg Tablet PO 20 mg DAILY@0900,1300,1600 MARC Administration Pt Own Med ( 1 each 12/15/20 21:00 12/16/20 15:27 Tobramycin/ EYE-BOTH 1 each Dexamethasone TID MARC Administration Opthalmic Suspension ) Non-Formulary Medication 1 each 12/16/20 11:00 12/16/20 11:11 Patient Own Medication NOSTRIL-B 1 each 1000 MARC Administration Propranolol HCl 20 mg 12/14/20 21:00 12/15/20 22:01 Propranolol Hcl 20 Mg Tablet PO 20 mg BEDTIME MARC Administration Protocol Propranolol HCl 10 mg 12/16/20 13:00 12/16/20 14:49 Propranolol Hcl 10 Mg Tablet PO 10 mg DAILY@0900,1300 MARC Administration Protocol Quetiapine Fumarate 200 mg 12/14/20 21:00 12/15/20 22:01 Quetiapine Fumarate 200 Mg Tablet PO 200 mg BEDTIME MARC Administration Quetiapine Fumarate 100 mg 12/16/20 13:00 12/16/20 14:48 Quetiapine Fumarate 100 Mg Tablet PO 100 mg DAILY@0900,1300 [facility] Administration Quetiapine Fumarate 100 mg 12/16/20 16:44 12/16/20 17:09 Quetiapine Fumarate 100 Mg Tablet PO 100 mg BID PRN Administration agitation Vortioxetine 5 mg 12/17/20 09:00 Vortioxetine Hydrobromide 5 Mg Tablet PO DAILY@0900 [facility] Allergies Allergies Allergy/AdvReac Type Severity Reaction Status Date / Time acetaminophen [Percocet] Allergy Unknown Unknown Verified 12/14/20 15:48 ampicillin [AMPICILLIN] Allergy Unknown ERYTHEMA Unverified 07/21/20 15:48 NODOSUM (LEG SWELLING) droperidol [From INAPSINE] Allergy Unknown SEIZURES Unverified 07/21/20 15:48 oxycodone [From PERCOCET] Allergy Unknown DIFFICULTY Unverified 07/21/20 15:48 BREATHING trazodone [TRAZODONE] Allergy Unknown UNKNOWN Unverified 07/21/20 15:48 erythromycin base AdvReac Unknown STOMACH Unverified 07/21/20 15:48 [ERYTHROMYCIN BASE] UPSET Fish Containing Products AdvReac Unknown NAUSEA Unverified 07/21/20 15:48 Erythromycin Allergy Unknown Unknown Uncoded 12/14/20 15:48 Inapsine Allergy Unknown Unknown Uncoded 12/14/20 15:48 Assessment & Plan Assessment & Plan (1) Borderline personality disorder: Status: Acute Code(s): F60.3 - Borderline personality disorder Assessment and Plan: DBT focus with pt although she reports by history this has been unhelpful Pt reports head banging on 10/14. Will get CAT Head to r/o injury. Pt as she is looking to [place] consult, may benefit from the 2 week DBT residential program of the [facility]. Will discuss with Dr. Jaeger and apply if pt has interest. (2) OCD (obsessive compulsive disorder): Status: Acute Code(s): F42.9 - Obsessive-compulsive disorder, unspecified Assessment and Plan: Consultation with Dr. Jaeger. Pt has recently tapered and stopped Sertraline. Discussed next trials-with possibilities of Trintellix, Paxil (hx of trial), Luvox. Pt given teaching sheets on all of these and we will begin Trintellix trial. (3) PTSD (post-traumatic stress disorder): Status: Acute Code(s): F43.10 - Post-traumatic stress disorder, unspecified (4) Suicide attempt by multiple drug overdose: Qualifiers: Encounter type: initial encounter Qualified Code(s): T50.912A - Poisoning by multiple unspecified drugs, medicaments and biological substances, intentional self-harm, initial encounter Status: Acute Code(s): T50.912A - Poisoning by multiple unspecified drugs, medicaments and biological substances, intentional self-harm, initial encounter (5) Major depression: Qualifiers: Major depression recurrence: recurrent Status: Acute Code(s): F32.9 - Major depressive disorder, single episode, unspecified Assessment and Plan: -Trintellix trial -PRN of Seroquel, Thorazine -IV Ketamine consult with OP MD Dr. Jaeger and [facility] next week. Pt given reading material on Ketamine but rejected it as it was not published in 2020. Greater than 50% of the session was spent on counseling and/or coordination of care Reason for contiued inpatient stay Substantial Risk for: harm to self, harm to others, inability to function and rapid decompensation
[2020-12-16 21:01] VITALS: BP 113/62; PULSE 79
[2020-12-16] MEDS: Propranolol HCL 20 MG TABLET PO (21:01)
[2020-12-16] MEDS: QUEtiapine Fumarate 200 MG TABLET PO (21:01)
[2020-12-16] MEDS: diazePAM 10 MG TABLET PO (21:48)
[2020-12-17 06:00] VITALS: BP 109/63; PULSE 82; TEMP 36.5; O2SAT 96
[2020-12-17] MEDS: QUEtiapine Fumarate 100 MG TABLET PO ×2 (08:48→13:35)
[2020-12-17] MEDS: Methylphenidate HCl 10 MG TABLET 20 MG PO ×3 (08:49→16:39)
[2020-12-17] MEDS: diazePAM 5 MG TABLET PO ×2 (08:49→13:35)
[2020-12-17] MEDS: Gabapentin 400 MG CAPSULE PO ×3 (08:49→21:51)
[2020-12-17] MEDS: Vortioxetine Hydrobromide 5 MG TABLET PO (08:49)
[2020-12-17] MEDS: Cyanocobalamin (Vitamin B-12) 1,000 MCG TABLET 1000 MCG PO (08:49)
[2020-12-17 08:50] VITALS: BP 113/62; PULSE 79
[2020-12-17] MEDS: Propranolol HCL 10 MG TABLET PO ×2 (08:50→13:34)
--- NOTE | 2020-12-17 09:12 | P.EN_ITS ---
Event Note Date of Service: 12/17/20 Event Note: 10/15/21: Pt prepared a two page written statement to present in t eam meeting. Met with pt and Kellie Smyth, [employer] student to review concerns (cross reference to chart for a copy of this statement entitled Team Meeting 12-16-20Saturday .) Pt reports her outburst of anger should never have happened on 12/15 and she holds us responsible. Shows where she is bruised from SIBS, states she threw her $500 glasses, I was totally out of control, my mind could not function. I knew it was coming . States we did not do enough, quickly enough, with enough follow through when the crisis had decreased, med timing schedule was not as it is at home, there has been no progress with Ketamine, today is day 3 without Ketamine. Discussed with pt order for Ketamine being available for dosing for 12/[address] Jaeger has written it. Pt explains d/t sinus infection last month and resulting insomnia she had changed her Ketamine timing. She referenced sx similiar to 12/15 when she had the sinus infection-4 days without Ketamine and feeling out of control. -Regarding Ketamine she reports she is the expert and should be the one to give the orders. Currently she uses it in the a.m. Discussed with pt a 10am administration time-she agrees. She asks for IV Ketamine, [facility] transfer-Dis cussed initiation of that inquiry on 12/15. I am not where I need to be with Ketamine. You need to stop nickel and diming me-I am an expert, I want an expert. Informed pt I had left a message for Dr. Borrero, the [facility] [employer] [facility] [place] and he will be talking with Dr. Jaeger next week, as one of his family has passed d/t COVID and he needs to attend to this matter over the weekend. Pt reports [facility] informed her they would cover IP for Ketamine. -Discussed need for prn medications-By history Mellaril has worked. Seroquel, Valium, Propranolol are not adequate or enough. Asked pt about Thorazine-that has been effective by history, Perphenazine-she has not trialed. Discussed combining prns so that she will have relief without overmedication. Will discuss with Dr. Jaeger and order prns.
[2020-12-17 13:34] VITALS: BP 136/63; PULSE 81
[2020-12-17] MEDS: chlorproMAZINE HCl 100 MG TABLET 50 MG PO (15:05)
[2020-12-17 17:05] VITALS: BP 119/59; PULSE 82; TEMP 37.2
[2020-12-17 21:52] VITALS: BP 144/73; PULSE 99
[2020-12-17] MEDS: Propranolol HCL 20 MG TABLET PO (21:52)
[2020-12-17] MEDS: QUEtiapine Fumarate 200 MG TABLET PO (21:52)
[2020-12-17] MEDS: diazePAM 10 MG TABLET PO (21:52)
--- NOTE | 2020-12-17 22:12 | P.PNPSI_ITS ---
Subjective Subjective Date of Service: 12/18/20 Reason For Visit: DEPRESSION Interim History: pt seen, chart reviewed vitals reviewed: WNL Pt reports she's not good. She says she's been dealing with depression for years, tried every medication and has had little relief. She has a passive wish but says her beloved has asked her not to kill herself to which she agrees and remains committed. She reports Ketamine keeps her just steady enough from falling off edge of precipice. Pt asks for prn Seroquel to be replaced with thorazine, which she took day prior but at lower dose. Third Hand discussed ketamine/mdma assisted therapy which pt said she's interested in. Pt denies any active SI. Says recent headbanging helps her ignore depressive thoughts; pt says she will try to stop Mental Status Exam Mental Status Exam Narrative: Patient Appearance: Appropriate Patient Orientation: Person, Place, Time and Situation Level of Consciousness: Awake and Appropriate Patient Behavior: Appropriate and Good Eye Contact Mood Description: Calm and Relaxed Affect Description: depressed Patient Cognition Impaired: No Ability to Follow Directions: Good Speech Pattern: Clear Memory Description: Intact Hallucinations: None Delusions: Not Present Thought Process: Intact Thought Content: passive SI Judgement and Insight: intact Diagnostics Vital Signs (24Hr): Vital Signs - 24 hr 12/17/20 06:00 12/17/20 08:50 12/17/20 13:34 Temperature 97.7 F Pulse Rate 82 79 81 Blood Pressure 109/63 113/62 136/63 Pulse Oximetry 96 12/17/20 17:05 12/17/20 21:52 Temperature 98.9 F Pulse Rate 82 99 Blood Pressure 119/59 L 144/73 H Pulse Oximetry Body Mass Index 36.7 Labs Results: 12/13/20 17:53 12/13/20 17:53 Imaging Radiology Impressions: ITS Impressions Chest X-Ray 12/13/20 16:42 IMPRESSION: Unremarkable examination. Head CT 12/17/20 10:00 IMPRESSION: No acute intracranial pathology. Medications Medications Current Medications Generic Name Dose Route Start Last Admin Trade Name Freq PRN Reason Stop Dose Admin Acetaminophen 650 mg 12/16/20 16:43 12/16/20 17:11 Acetaminophen 325 Mg Tablet PO 650 mg Q6H PRN Administration Pain, Mild (Pain Scale 1-3) Al Hydroxide/Mg Hydroxide 30 ml 12/14/20 18:21 Magnesium Hydrox/Alum Hydrox 30 Ml Oral.Susp PO Q6H PRN Heartburn/Nausea Chlorpromazine HCl 50 mg 12/17/20 11:25 12/17/20 15:05 Chlorpromazine Hcl 100 Mg Tablet PO 50 mg TID PRN Administration agitation Cyanocobalamin 1,000 mcg 12/14/20 09:00 12/17/20 08:49 Cyanocobalamin (Vitamin B-12) 1,000 Mcg Tablet PO 1,000 mcg DAILY MARC Administration Diazepam 10 mg 12/14/20 21:00 12/17/20 21:52 Diazepam 10 Mg Tablet PO 10 mg BEDTIME MARC Administration Diazepam 5 mg 12/16/20 13:00 12/17/20 13:35 Diazepam 5 Mg Tablet PO 5 mg 0900,1300 MA[facility] Administration Fluticasone Propionate 1 spray 12/14/20 02:08 Fluticasone Propionate Nasal 16 [facility] [place] NOSTRIL-B BID PRN congestion Gabapentin 400 mg 12/16/20 13:00 12/17/20 21:51 Gabapentin 400 Mg Capsule PO 400 mg DAILY@0900,1300,2100 MARC Administration Magnesium Hydroxide 30 ml 12/14/20 18:21 Milk Of Magnesia 30 Ml Oral.Susp PO DAILY PRN Constipation Methylphenidate HCl 20 mg 12/16/20 13:00 12/17/20 16:39 Methylphenidate Hcl 10 Mg Tablet PO 20 mg DAILY@0900,1300,1600 MARC Administration Pt Own Med ( 1 each 12/15/20 21:00 12/17/20 21:51 Tobramycin/ EYE-BOTH 1 each Dexamethasone TID MARC Administration Opthalmic Suspension ) Non-Formulary Medication 1 each 12/16/20 11:00 12/17/20 10:04 Patient Own Medication NOSTRIL-B 1 each 1000 MARC Administration Propranolol HCl 20 mg 12/14/20 21:00 12/17/20 21:52 Propranolol Hcl 20 Mg Tablet PO 20 mg BEDTIME MARC Administration Protocol Propranolol HCl 10 mg 12/16/20 13:00 12/17/20 13:34 Propranolol Hcl 10 Mg Tablet PO 10 mg DAILY@0900,1300 MARC Administration Protocol Quetiapine Fumarate 200 mg 12/14/20 21:00 12/17/20 21:52 Quetiapine Fumarate 200 Mg Tablet PO 200 mg BEDTIME MARC Administration Quetiapine Fumarate 100 mg 12/16/20 13:00 12/17/20 13:35 Quetiapine Fumarate 100 Mg Tablet PO 100 mg DAILY@0900,1300 MARC Administration Quetiapine Fumarate 100 mg 12/16/20 16:44 12/16/20 17:09 Quetiapine Fumarate 100 Mg Tablet PO 100 mg BID PRN Administration agitation Vortioxetine 5 mg 12/17/20 09:00 12/17/20 08:49 Vortioxetine Hydrobromide 5 Mg Tablet PO 5 mg DAILY@0900 MARC Administration Allergies Allergies Allergy/AdvReac Type Severity Reaction Status Date / Time acetaminophen [Percocet] Allergy Unknown Unknown Verified 12/14/20 15:48 ampicillin [AMPICILLIN] Allergy Unknown ERYTHEMA Unverified 07/21/20 15:48 NODOSUM (LEG SWELLING) droperidol [From INAPSINE] Allergy Unknown SEIZURES Unverified 07/21/20 15:48 oxycodone [From PERCOCET] Allergy Unknown DIFFICULTY Unverified 07/21/20 15:48 BREATHING trazodone [TRAZODONE] Allergy Unknown UNKNOWN Unverified 07/21/20 15:48 erythromycin base AdvReac Unknown STOMACH Unverified 07/21/20 15:48 [ERYTHROMYCIN BASE] UPSET Fish Containing Products AdvReac Unknown NAUSEA Unverified 07/21/20 15:48 Erythromycin Allergy Unknown Unknown Uncoded 12/14/20 15:48 Inapsine Allergy Unknown Unknown Uncoded 12/14/20 15:48 Assessment & Plan Impression: depressed; expressing hopelessness. Reports only passive SI with as guardado protective factor Headbanging: says helps her stop thinking about depressive thoughts DX: mdd Ptsd BPD OCD Plan: head CT pending (due to headbanging) DC Seroquel Increase Thorazine to 50mg TID prn for agitation Otherwise, no changes to tx plan; following from primary team tx note: Pt as she is looking to [place] consult, may benefit from the 2 week DBT residential program of the [facility]. Will discuss with Dr. Jaeger and apply if pt has interest. (2) OCD (obsessive compulsive disorder): Assessment and Plan: Consultation with Dr. Jaeger. Pt has recently tapered and stopped Sertraline. Discussed next trials-with possibilities of Trintellix, Paxil (hx of trial), Luvox. Pt given teaching sheets on all of these and we will begin Trintellix trial. (3) PTSD (post-traumatic stress disorder): (4) Suicide attempt by multiple drug overdose: (5) Major depression: Assessment and Plan: -Trintellix trial -IV Ketamine consult with OP MD Dr. Jaeger and [facility] next week. Pt given reading material on Ketamine but rejected it as it was not published in 2020. Greater than 50% of the session was spent on counseling and/or coordination of care Reason for contiued inpatient stay Substantial Risk for: harm to self and med/psych decompensation
[2020-12-18 06:40] VITALS: BP 133/62; PULSE 67; RESP 16; TEMP 36.2; O2SAT 95
[2020-12-18 09:27] VITALS: BP 133/62; PULSE 67
[2020-12-18] MEDS: Vortioxetine Hydrobromide 5 MG TABLET PO (09:27)
[2020-12-18] MEDS: QUEtiapine Fumarate 100 MG TABLET PO ×2 (09:27→13:13)
[2020-12-18] MEDS: diazePAM 5 MG TABLET PO ×2 (09:27→13:14)
[2020-12-18] MEDS: Propranolol HCL 10 MG TABLET PO ×2 (09:27→13:14)
[2020-12-18] MEDS: Gabapentin 400 MG CAPSULE PO ×3 (09:27→21:52)
[2020-12-18] MEDS: Methylphenidate HCl 10 MG TABLET 20 MG PO ×3 (09:28→16:58)
--- NOTE | 2020-12-18 10:47 | HO.PSYCHPN ---
Subjective Subjective Date of Service: 12/18/20 Reason For Visit: DEPRESSION Interim History: pt seen, chart reviewed vitals reviewed: WNL Pt reports she's pretty good. She says she showered today, which she reports she's not done in weeks; she says i feel like i'm functioning like a normal person. Of note, pt affect much brighter. She remains curious about MDMA or Ketamine guided psychotherapy and will discuss this further w/ outpt provider. Pt says she would like to DC by next thrusday if possible since she is due for her second COVID vaccination on Saturday (via her husbands work). No complaints Says Thorazine 50mg seemed to be helpful and would like to continue with this med as a prn Medication Compliance: Yes Side effects from medications: No Review of Systems Review of Systems No all other systems are reviewed and are negative, unobtainable due to endotracheal tube, Unobtainable due to mental condition, Unobtainable due to mental status or Other Mental Status Exam Mental Status Exam Patient Appearance: Well Grooomed and Appropriate Patient Orientation: Person, Place, Time and Situation Level of Consciousness: Awake and Appropriate Patient Behavior: Appropriate and Good Eye Contact Mood Description: Calm and Relaxed Affect Description: Calm and Appropriate Patient Cognition Impaired: No Ability to Follow Directions: Good Speech Pattern: Clear Memory Description: Intact Hallucinations: None Delusions: Not Present Thought Process: Intact Thought Content: positive for Intact Judgement: Fair Judgement and Insight: intact Diagnostics Vital Signs (24Hr): Vital Signs - 24 hr 12/17/20 13:34 12/17/20 17:05 12/17/20 21:52 Temperature 98.9 F Pulse Rate 81 82 99 Respiratory Rate Blood Pressure 136/63 119/59 L 144/73 H Pulse Oximetry 12/18/20 06:40 12/18/20 09:27 Temperature 97.2 F Pulse Rate 67 67 Respiratory Rate 16 Blood Pressure 133/62 133/62 Pulse Oximetry 95 Body Mass Index 36.7 Labs Results: 12/13/20 17:53 12/13/20 17:53 Imaging Radiology Impressions: ITS Impressions Chest X-Ray 12/13/20 16:42 IMPRESSION: Unremarkable examination. Head CT 12/17/20 10:00 IMPRESSION: No acute intracranial pathology. Medications Medications Current Medications Generic Name Dose Route Start Last Admin Trade Name Freq PRN Reason Stop Dose Admin Acetaminophen 650 mg 12/16/20 16:43 12/16/20 17:11 Acetaminophen 325 Mg Tablet PO 650 mg Q6H PRN Administration Pain, Mild (Pain Scale 1-3) Al Hydroxide/Mg Hydroxide 30 ml 12/14/20 18:21 Magnesium Hydrox/Alum Hydrox 30 Ml Oral.Susp PO Q6H PRN Heartburn/Nausea Chlorpromazine HCl 50 mg 12/17/20 11:25 12/17/20 15:05 Chlorpromazine Hcl 100 Mg Tablet PO 50 mg TID PRN Administration agitation Cyanocobalamin 1,000 mcg 12/14/20 09:00 12/18/20 09:30 Cyanocobalamin (Vitamin B-12) 1,000 Mcg Tablet PO Not Given DAILY [facility] Diazepam 10 mg 12/14/20 21:00 12/17/20 21:52 Diazepam 10 Mg Tablet PO 10 mg BEDTIME MARC Administration Diazepam 5 mg 12/18/20 13:00 Diazepam 5 Mg Tablet PO BID@0900,1300 [facility] Fluticasone Propionate 1 spray 12/14/20 02:08 Fluticasone Propionate Nasal 16 [address]m [place] NOSTRIL-B BID PRN congestion Gabapentin 400 mg 12/18/20 13:00 Gabapentin 400 Mg Capsule PO TID@0900,1300,2100 [facility] Magnesium Hydroxide 30 ml 12/14/20 18:21 Milk Of Magnesia 30 Ml Oral.Susp PO DAILY PRN Constipation Methylphenidate HCl 20 mg 12/18/20 13:00 Methylphenidate Hcl 10 Mg Tablet PO TID@0900,1300,1600 [facility] Pt Own Med ( 1 each 12/15/20 21:00 12/18/20 09:27 Tobramycin/ EYE-BOTH 1 each Dexamethasone TID [facility] Administration Opthalmic Suspension ) Non-Formulary Medication 1 each 12/16/20 11:00 12/18/20 09:50 Patient Own Medication NOSTRIL-B 1 each 1000 [facility] Administration Propranolol HCl 20 mg 12/14/20 21:00 12/17/20 21:52 Propranolol Hcl 20 Mg Tablet PO 20 mg BEDTIME [facility] Administration Protocol Propranolol HCl 10 mg 12/18/20 13:00 Propranolol Hcl 10 Mg Tablet PO BID@0900,1300 [facility] Protocol Quetiapine Fumarate 200 mg 12/14/20 21:00 12/17/20 21:52 Quetiapine Fumarate 200 Mg Tablet PO 200 mg BEDTIME MARC Administration Quetiapine Fumarate 100 mg 12/16/20 16:44 12/16/20 17:09 Quetiapine Fumarate 100 Mg Tablet PO 100 mg BID PRN Administration agitation Quetiapine Fumarate 100 mg 12/18/20 13:00 Quetiapine Fumarate 100 Mg Tablet PO BID@0900,1300 MARC Vortioxetine 5 mg 12/17/20 09:00 12/18/20 09:27 Vortioxetine Hydrobromide 5 Mg Tablet PO 5 mg DAILY@0900 [facility] Administration Allergies Allergies Allergy/AdvReac Type Severity Reaction Status Date / Time acetaminophen [Percocet] Allergy Unknown Unknown Verified 12/14/20 15:48 ampicillin [AMPICILLIN] Allergy Unknown ERYTHEMA Unverified 07/21/20 15:48 NODOSUM (LEG SWELLING) droperidol [From INAPSINE] Allergy Unknown SEIZURES Unverified 07/21/20 15:48 oxycodone [From PERCOCET] Allergy Unknown DIFFICULTY Unverified 07/21/20 15:48 BREATHING trazodone [TRAZODONE] Allergy Unknown UNKNOWN Unverified 07/21/20 15:48 erythromycin base AdvReac Unknown STOMACH Unverified 07/21/20 15:48 [ERYTHROMYCIN BASE] UPSET Fish Containing Products AdvReac Unknown NAUSEA Unverified 07/21/20 15:48 Erythromycin Allergy Unknown Unknown Uncoded 12/14/20 15:48 Inapsine Allergy Unknown Unknown Uncoded 12/14/20 15:48 Assessment & Plan Impression: stable; generally depressed, but mood/affect brighter today dx: mdd, recurrent, severe Plan: Continue with current med regimen continue with thorazine 50mg prn for agitation ask for DC on of next week Greater than 50% of the session was spent on counseling and/or coordination of care Reason for contiued inpatient stay Substantial Risk for: med/psych decompensation
[2020-12-18 13:14] VITALS: PULSE 84
[2020-12-18] MEDS: chlorproMAZINE HCl 100 MG TABLET 50 MG PO (14:53)
[2020-12-18 16:42] VITALS: BP 128/67; PULSE 76; TEMP 36.9
[2020-12-18] MEDS: QUEtiapine Fumarate 200 MG TABLET PO (21:52)
[2020-12-18 21:53] VITALS: BP 131/61; PULSE 86
[2020-12-18] MEDS: diazePAM 10 MG TABLET PO (21:53)
[2020-12-18] MEDS: Propranolol HCL 20 MG TABLET PO (21:53)
[2020-12-19 06:00] VITALS: BP 112/58; PULSE 70; RESP 18; TEMP 35.9; O2SAT 94
[2020-12-19] MEDS: diazePAM 5 MG TABLET PO ×2 (09:05→14:05)
[2020-12-19] MEDS: QUEtiapine Fumarate 100 MG TABLET PO ×2 (09:05→14:05)
[2020-12-19] MEDS: Gabapentin 400 MG CAPSULE PO ×3 (09:05→21:54)
[2020-12-19] MEDS: Vortioxetine Hydrobromide 5 MG TABLET PO (09:05)
[2020-12-19 09:06] VITALS: BP 112/58; PULSE 70
[2020-12-19] MEDS: Propranolol HCL 10 MG TABLET PO ×2 (09:06→14:05)
[2020-12-19] MEDS: Methylphenidate HCl 10 MG TABLET 20 MG PO ×3 (09:20→16:13)
[2020-12-19 14:05] VITALS: PULSE 84
[2020-12-19 16:55] VITALS: BP 160/76; PULSE 82; TEMP 36.5
[2020-12-19] MEDS: chlorproMAZINE HCl 100 MG TABLET 50 MG PO (19:44)
[2020-12-19 21:53] VITALS: BP 138/64; PULSE 91
[2020-12-19] MEDS: Propranolol HCL 20 MG TABLET PO (21:53)
[2020-12-19] MEDS: QUEtiapine Fumarate 200 MG TABLET PO (21:53)
--- NOTE | 2020-12-19 22:02 | HO.PSYCHPN ---
Subjective Subjective Date of Service: 12/19/20 Reason For Visit: DEPRESSION Interim History: pt says mood is good; no complaints; feels she's having a good day and hopes rest of day will be good as well. Medication Compliance: Yes Mental Status Exam Mental Status Exam Narrative: Patient Appearance: Well Grooomed and Appropriate Patient Orientation: Person, Place, Time and Situation Level of Consciousness: Awake and Appropriate Patient Behavior: Appropriate and Good Eye Contact Mood Description: Calm and Relaxed Affect Description: Calm and Appropriate Patient Cognition Impaired: No Ability to Follow Directions: Good Speech Pattern: Clear Memory Description: Intact Hallucinations: None Delusions: Not Present Thought Process: Intact Thought Content: positive for Intact Judgement: Fair Judgement and Insight: intact Diagnostics Vital Signs (24Hr): Vital Signs - 24 hr 12/19/20 06:00 12/19/20 09:06 12/19/20 14:05 Temperature 96.6 F L Pulse Rate 70 70 84 Respiratory Rate 18 Blood Pressure 112/58 L 112/58 L Pulse Oximetry 94 12/19/20 16:55 12/19/20 21:53 Temperature 97.7 F Pulse Rate 82 91 Respiratory Rate Blood Pressure 160/76 H 138/64 Pulse Oximetry Body Mass Index 36.7 Labs Results: 12/13/20 17:53 12/13/20 17:53 Imaging Radiology Impressions: ITS Impressions Chest X-Ray 12/13/20 16:42 IMPRESSION: Unremarkable examination. Head CT 12/17/20 10:00 IMPRESSION: No acute intracranial pathology. Medications Medications Current Medications Generic Name Dose Route Start Last Admin Trade Name Freq PRN Reason Stop Dose Admin Acetaminophen 650 mg 12/16/20 16:43 12/16/20 17:11 Acetaminophen 325 Mg Tablet PO 650 mg Q6H PRN Administration Pain, Mild (Pain Scale 1-3) Al Hydroxide/Mg Hydroxide 30 ml 12/14/20 18:21 Magnesium Hydrox/Alum Hydrox 30 Ml Oral.Susp PO Q6H PRN Heartburn/Nausea Chlorpromazine HCl 50 mg 12/17/20 11:25 12/19/20 19:44 Chlorpromazine Hcl 100 Mg Tablet PO 25 mg TID PRN Administration agitation Cyanocobalamin 1,000 mcg 12/14/20 09:00 12/19/20 09:06 Cyanocobalamin (Vitamin B-12) 1,000 Mcg Tablet PO Not Given DAILY [facility] Diazepam 5 mg 12/18/20 13:00 12/19/20 14:05 Diazepam 5 Mg Tablet PO 5 mg BID@0900,1300 MARC Administration Diazepam 10 mg 12/20/20 21:00 Diazepam 10 Mg Tablet PO 01/05/21 22:01 BEDTIME MARC Fluticasone Propionate 1 spray 12/14/20 02:08 Fluticasone Propionate Nasal 16 [address] [place] NOSTRIL-B BID PRN congestion Gabapentin 400 mg 12/18/20 13:00 12/19/20 21:54 Gabapentin 400 Mg Capsule PO 400 mg TID@0900,1300,2100 MARC Administration Magnesium Hydroxide 30 ml 12/14/20 18:21 Milk Of Magnesia 30 Ml Oral.Susp PO DAILY PRN Constipation Methylphenidate HCl 20 mg 12/18/20 13:00 12/19/20 16:13 Methylphenidate Hcl 10 Mg Tablet PO 20 mg TID@0900,1300,1600 MARC Administration Pt Own Med ( 1 each 12/15/20 21:00 12/19/20 21:53 Tobramycin/ EYE-BOTH 1 each Dexamethasone TID MARC Administration Opthalmic Suspension ) Non-Formulary Medication 1 each 12/16/20 11:00 12/19/20 09:51 Patient Own Medication NOSTRIL-B 1 each 1000 MARC Administration Propranolol HCl 20 mg 12/14/20 21:00 12/19/20 21:53 Propranolol Hcl 20 Mg Tablet PO 20 mg BEDTIME MARC Administration Protocol Propranolol HCl 10 mg 12/18/20 13:00 12/19/20 14:05 Propranolol Hcl 10 Mg Tablet PO 10 mg BID@0900,1300 MARC Administration Protocol Quetiapine Fumarate 200 mg 12/14/20 21:00 12/19/20 21:53 Quetiapine Fumarate 200 Mg Tablet PO 200 mg BEDTIME MARC Administration Quetiapine Fumarate 100 mg 12/16/20 16:44 12/16/20 17:09 Quetiapine Fumarate 100 Mg Tablet PO 100 mg BID PRN Administration agitation Quetiapine Fumarate 100 mg 12/18/20 13:00 12/19/20 14:05 Quetiapine Fumarate 100 Mg Tablet PO 100 mg BID@0900,1300 MARC Administration Vortioxetine 5 mg 12/17/20 09:00 12/19/20 09:05 Vortioxetine Hydrobromide 5 Mg Tablet PO 5 mg DAILY@0900 MARC Administration Allergies Allergies Allergy/AdvReac Type Severity Reaction Status Date / Time ampicillin [AMPICILLIN] Allergy Unknown ERYTHEMA Unverified 07/21/20 15:48 NODOSUM (LEG SWELLING) droperidol [From INAPSINE] Allergy Unknown SEIZURES Unverified 07/21/20 15:48 oxycodone [From PERCOCET] Allergy Unknown DIFFICULTY Unverified 07/21/20 15:48 BREATHING trazodone [TRAZODONE] Allergy Unknown UNKNOWN Unverified 07/21/20 15:48 erythromycin base AdvReac Unknown STOMACH Unverified 07/21/20 15:48 [ERYTHROMYCIN BASE] UPSET Fish Containing Products AdvReac Unknown NAUSEA Unverified 07/21/20 15:48 Erythromycin Allergy Unknown Unknown Uncoded 12/14/20 15:48 Inapsine Allergy Unknown Unknown Uncoded 12/14/20 15:48 Assessment & Plan Impression: stable; generally depressed, but mood/affect brighter dx: mdd, recurrent, severe Plan: Continue with current med regimen continue with thorazine 50mg prn for agitation ask for DC on of next week Greater than 50% of the session was spent on counseling and/or coordination of care Reason for contiued inpatient stay Substantial Risk for: med/psych decompensation
[2020-12-19] MEDS: diazePAM 10 MG TABLET PO (22:14)
[2020-12-20 06:00] VITALS: BP 109/55; PULSE 67; RESP 16; TEMP 36.3; O2SAT 95
[2020-12-20 09:08] VITALS: BP 109/62; PULSE 77
[2020-12-20] MEDS: Propranolol HCL 10 MG TABLET PO ×4 (09:08→22:42)
[2020-12-20] MEDS: Gabapentin 400 MG CAPSULE PO ×3 (09:08→22:38)
[2020-12-20] MEDS: QUEtiapine Fumarate 100 MG TABLET PO ×4 (09:08→22:38)
[2020-12-20] MEDS: Cyanocobalamin (Vitamin B-12) 1,000 MCG TABLET 1000 MCG PO (09:08)
[2020-12-20] MEDS: diazePAM 5 MG TABLET PO ×4 (09:09→22:38)
[2020-12-20] MEDS: Vortioxetine Hydrobromide 5 MG TABLET PO (09:09)
[2020-12-20] MEDS: Methylphenidate HCl 10 MG TABLET 20 MG PO ×3 (09:12→16:10)
[2020-12-20 13:46] VITALS: BP 128/61; PULSE 99
[2020-12-20] MEDS: Perphenazine 2 MG TABLET PO ×2 (16:09→20:36)
--- NOTE | 2020-12-20 16:15 | HO.PSYCHPN ---
Subjective Subjective Date of Service: 12/20/20 Reason For Visit: DEPRESSION Subjective Notes: Conditional Voluntary Interim History: Clear, engaged, identifies 4-6 pm as a difficult time. Will trial dividing Seroquel, Valium, Propranolol to qid-0900,1300,1700,2100. Finds Thorazine prn helpful but overpowering, especially at 50 mg-discussed that 10 mg is available. Discussed perphenazine prn trial instead 2 mg tid. Will hold Thorazine prn at this time. Discussed wanting to review precipitants to recent OD as they were similiar to May 2020 OD where she was medically admitted. will fax written information regarding this from pt to team. Medication Compliance: Yes Side effects from medications: No Attending Groups: No Review of Systems Review of Systems Yes all other systems are reviewed and are negative (reports breast lump) Psychiatric: Reports depression, Reports hopelessness and Reports suicidal ideation (persistant) Mental Status Exam Mental Status Exam Patient Appearance: Appropriate Patient Orientation: Person, Place, Time and Situation Level of Consciousness: Awake and Alert Patient Behavior: Appropriate, Talkative and Anxious Mood Description: Depressed, Anxious and Apprehensive Affect Description: Flat Patient Cognition Impaired: No Ability to Follow Directions: Good Speech Pattern: Spontaneous Speech Memory Description: Intact Hallucinations: None Delusions: Not Present Thought Process: Rumination Thought Content: positive for Circumstantial Depressive Symptoms: Increased Anxiety, Increased Irritability (identifies 4-6 pm as a difficult time for herself-med times/doses adjusted), Loss of Int. in Activity, Unhappiness, Thoughts of /Suicide, Loss of Energy and Difficulty Concentrating Judgement: Good Diagnostics Vital Signs (24Hr): Vital Signs - 24 hr 12/19/20 16:55 12/19/20 21:53 12/20/20 06:00 Temperature 97.7 F 97.4 F Pulse Rate 82 91 67 Respiratory Rate 16 Blood Pressure 160/76 H 138/64 109/55 L Pulse Oximetry 95 12/20/20 09:08 12/20/20 13:46 Temperature Pulse Rate 77 99 Respiratory Rate Blood Pressure 109/62 128/61 Pulse Oximetry Body Mass Index 36.7 Labs Results: 12/13/20 17:53 12/13/20 17:53 Imaging Radiology Impressions: ITS Impressions Chest X-Ray 12/13/20 16:42 IMPRESSION: Unremarkable examination. Head CT 12/17/20 10:00 IMPRESSION: No acute intracranial pathology. Medications Medications Current Medications Generic Name Dose Route Start Last Admin Trade Name Freq PRN Reason Stop Dose Admin Acetaminophen 650 mg 12/16/20 16:43 12/16/20 17:11 Acetaminophen 325 Mg Tablet PO 650 mg Q6H PRN Administration Pain, Mild (Pain Scale 1-3) Al Hydroxide/Mg Hydroxide 30 ml 12/14/20 18:21 Magnesium Hydrox/Alum Hydrox 30 Ml Oral.Susp PO Q6H PRN Heartburn/Nausea Cyanocobalamin 1,000 mcg 12/14/20 09:00 12/20/20 09:08 Cyanocobalamin (Vitamin B-12) 1,000 Mcg Tablet PO 1,000 mcg DAILY MARC Administration Diazepam 5 mg 12/20/20 17:00 Diazepam 5 Mg Tablet PO DAILY@0900,1300,1700 [facility] Diazepam 5 mg 12/20/20 21:00 Diazepam 5 Mg Tablet PO 2100 [facility] Fluticasone Propionate 1 spray 12/14/20 02:08 Fluticasone Propionate Nasal 16 Gm [place] NOSTRIL-B BID PRN congestion Gabapentin 400 mg 12/18/20 13:00 12/20/20 13:42 Gabapentin 400 Mg Capsule PO 400 mg TID@0900,1300,2100 [facility] Administration Magnesium Hydroxide 30 ml 12/14/20 18:21 Milk Of Magnesia 30 Ml Oral.Susp PO DAILY PRN Constipation Methylphenidate HCl 20 mg 12/18/20 13:00 12/20/20 13:43 Methylphenidate Hcl 10 Mg Tablet PO 20 mg TID@0900,1300,1600 [facility] Administration Pt Own Med ( 1 each 12/15/20 21:00 12/20/20 14:40 Tobramycin/ EYE-BOTH 1 each Dexamethasone TID [facility] Administration Opthalmic Suspension ) Non-Formulary Medication 1 each 12/16/20 11:00 12/20/20 10:14 Patient Own Medication NOSTRIL-B 1 each 1000 [facility] Administration Perphenazine 2 mg 12/20/20 15:07 Perphenazine 2 Mg Tablet PO TID PRN agitation Propranolol HCl 10 mg 12/20/20 17:00 Propranolol Hcl 10 Mg Tablet PO DAILY@0900,1300,1700 [facility] Protocol Propranolol HCl 10 mg 12/20/20 21:00 Propranolol Hcl 10 Mg Tablet PO 2100 [facility] Protocol Quetiapine Fumarate 100 mg 12/16/20 16:44 12/16/20 17:09 Quetiapine Fumarate 100 Mg Tablet PO 100 mg BID PRN Administration agitation Quetiapine Fumarate 100 mg 12/18/20 13:00 12/20/20 13:42 Quetiapine Fumarate 100 Mg Tablet PO 100 mg BID@0900,1300 [facility] Administration Quetiapine Fumarate 100 mg 12/20/20 17:00 Quetiapine Fumarate 100 Mg Tablet PO DAILY@1700 [facility] Quetiapine Fumarate 100 mg 12/20/20 21:00 Quetiapine Fumarate 100 Mg Tablet PO 2100 [facility] Vortioxetine 5 mg 12/17/20 09:00 12/20/20 09:09 Vortioxetine Hydrobromide 5 Mg Tablet PO 5 mg DAILY@0900 [facility] Administration Allergies Allergies Allergy/AdvReac Type Severity Reaction Status Date / Time ampicillin [AMPICILLIN] Allergy Unknown ERYTHEMA Unverified 07/21/20 15:48 NODOSUM (LEG SWELLING) droperidol [From INAPSINE] Allergy Unknown SEIZURES Unverified 07/21/20 15:48 oxycodone [From PERCOCET] Allergy Unknown DIFFICULTY Unverified 07/21/20 15:48 BREATHING trazodone [TRAZODONE] Allergy Unknown UNKNOWN Unverified 07/21/20 15:48 erythromycin base AdvReac Unknown STOMACH Unverified 07/21/20 15:48 [ERYTHROMYCIN BASE] UPSET Fish Containing Products AdvReac Unknown NAUSEA Unverified 07/21/20 15:48 Erythromycin Allergy Unknown Unknown Uncoded 12/14/20 15:48 Inapsine Allergy Unknown Unknown Uncoded 12/14/20 15:48 Assessment & Plan Assessment & Plan (1) Borderline personality disorder: Status: Acute Code(s): F60.3 - Borderline personality disorder (2) OCD (obsessive compulsive disorder): Status: Acute Code(s): F42.9 - Obsessive-compulsive disorder, unspecified (3) PTSD (post-traumatic stress disorder): Status: Acute Code(s): F43.10 - Post-traumatic stress disorder, unspecified Assessment and Plan: -Pt asks to review attempt to develop coping skills and strategies to prevent further attempts. will fax over documentation and will review with pt. (4) Major depression: Qualifiers: Major depression recurrence: recurrent Status: Acute Code(s): F32.9 - Major depressive disorder, single episode, unspecified Assessment and Plan: -Pt identified 4-6pm as a difficult time for anxiety, agitation. Re-distributed Seroquel, Valium, Propranolol to QID with no dosage increase. -Hold chlorpromazine prn -Perphenazine 2 mg tid prn agitaiton. (5) Suicide attempt by multiple drug overdose: Qualifiers: Encounter type: initial encounter Qualified Code(s): T50.912A - Poisoning by multiple unspecified drugs, medicaments and biological substances, intentional self-harm, initial encounter Status: Acute Code(s): T50.912A - Poisoning by multiple unspecified drugs, medicaments and biological substances, intentional self-harm, initial encounter Greater than 50% of the session was spent on counseling and/or coordination of care Patient educated on: medication risk/benefits and therapeutic strategies Informed Consent: understands Reason for contiued inpatient stay Substantial Risk for: harm to self and rapid decompensation
[2020-12-20 17:10] VITALS: BP 131/78; PULSE 89; TEMP 36.6
[2020-12-20 18:27] VITALS: BP 124/56; PULSE 89
--- NOTE | 2020-12-20 20:18 | PM.EVENT ---
Event Note Date of Service: 12/20/20 Event Note: Consult requested for breast lump. Patient stated that she did not want to be seen, stating. I have a lawsuit against a hospitalist . She then proceeded to her room and slammed the door.
[2020-12-20 22:42] VITALS: BP 133/58; PULSE 88
[2020-12-21] MEDS: Perphenazine 2 MG TABLET PO ×2 (00:11→12:23)
[2020-12-21] MEDS: QUEtiapine Fumarate 100 MG TABLET PO ×4 (00:47→16:48)
[2020-12-21 06:10] VITALS: BP 135/62; PULSE 71; RESP 18; TEMP 36.4; O2SAT 94
[2020-12-21 09:09] VITALS: BP 135/62; PULSE 71
[2020-12-21] MEDS: Propranolol HCL 10 MG TABLET PO ×4 (09:09→22:06)
[2020-12-21] MEDS: Vortioxetine Hydrobromide 5 MG TABLET PO (09:10)
[2020-12-21] MEDS: diazePAM 5 MG TABLET PO ×4 (09:10→22:07)
[2020-12-21] MEDS: Methylphenidate HCl 10 MG TABLET 20 MG PO ×3 (09:10→16:55)
[2020-12-21] MEDS: Gabapentin 400 MG CAPSULE PO ×4 (09:10→22:06)
[2020-12-21 13:28] VITALS: BP 118/60; PULSE 94
[2020-12-21 16:47] VITALS: BP 137/63; PULSE 82
--- NOTE | 2020-12-21 17:50 | P.PNPSI_ITS ---
Subjective Subjective Date of Service: 12/21/20 Reason For Visit: DEPRESSION Subjective Notes: Conditional Voluntary Interim History: Continues with timing changes to assist with sx mgt. Looking for discharge by 12/23. Has COVID injection appt. Discharge issues discussed-therapy, IV Ketamine. Asking for major plan changes so I don't return to the same plan that has not worked. Medication Compliance: Yes Side effects from medications: No Attending Groups: No Review of Systems Reports behavioral changes Psychiatric: Reports anxiety, Reports behavioral changes, Reports depression, Reports hopelessness, Reports irritability, Reports anhedonia and Reports mood swings Mental Status Exam Mental Status Exam Patient Appearance: Appropriate Patient Orientation: Person, Place, Time and Situation Level of Consciousness: Awake and Alert Patient Behavior: Appropriate, Talkative, Cooperative, Anxious, Fearful and Good Eye Contact Mood Description: Labile and Angry Affect Description: Labile Patient Cognition Impaired: No Ability to Follow Directions: Good Speech Pattern: Spontaneous Speech Memory Description: Intact Hallucinations: None Delusions: Not Present Thought Process: Rumination Thought Content: positive for Circumstantial and positive for Linear Depressive Symptoms: Increased Anxiety, Increased Irritability, Loss of Int. in Activity, Feelings of Worthlessness, Hopelessness, Isolating-Friends/Family, Feelings of Guilt, Unhappiness, Increased Fatigue and Loss of Energy Judgement: Fair Diagnostics Vital Signs (24Hr): Vital Signs - 24 hr 12/20/20 18:27 12/20/20 22:42 12/21/20 06:10 Temperature 97.6 F Pulse Rate 89 88 71 Respiratory Rate 18 Blood Pressure 124/56 L 133/58 L 135/62 Pulse Oximetry 94 12/21/20 09:09 12/21/20 13:28 12/21/20 16:47 Temperature Pulse Rate 71 94 82 Respiratory Rate Blood Pressure 135/62 118/60 137/63 Pulse Oximetry Body Mass Index 36.7 Labs Results: 12/13/20 17:53 12/13/20 17:53 Imaging Radiology Impressions: ITS Impressions Chest X-Ray 12/13/20 16:42 IMPRESSION: Unremarkable examination. Head CT 12/17/20 10:00 IMPRESSION: No acute intracranial pathology. Medications Medications Current Medications Generic Name Dose Route Start Last Admin Trade Name Freq PRN Reason Stop Dose Admin Acetaminophen 650 mg 12/16/20 16:43 12/16/20 17:11 Acetaminophen 325 Mg Tablet PO 650 mg Q6H PRN Administration Pain, Mild (Pain Scale 1-3) Al Hydroxide/Mg Hydroxide 30 ml 12/14/20 18:21 Magnesium Hydrox/Alum Hydrox 30 Ml Oral.Susp PO Q6H PRN Heartburn/Nausea Cyanocobalamin 1,000 mcg 12/14/20 09:00 12/21/20 09:15 Cyanocobalamin (Vitamin B-12) 1,000 Mcg Tablet PO Not Given DAILY [facility] Diazepam 5 mg 12/20/20 17:00 12/21/20 16:47 Diazepam 5 Mg Tablet PO 5 mg DAILY@0900,1300,1700 [facility] Administration Diazepam 5 mg 12/20/20 21:00 12/20/20 22:38 Diazepam 5 Mg Tablet PO 5 mg 2100 [facility] Administration Fluticasone Propionate 1 spray 12/14/20 02:08 Fluticasone Propionate Nasal 16 Gm [place] NOSTRIL-B BID PRN congestion Gabapentin 400 mg 12/21/20 17:00 12/21/20 16:47 Gabapentin 400 Mg Capsule PO 400 mg DAILY@0900,1300,1700 [facility] Administration Gabapentin 400 mg 12/21/20 21:00 Gabapentin 400 Mg Capsule PO 2100 [facility] Magnesium Hydroxide 30 ml 12/14/20 18:21 Milk Of Magnesia 30 Ml Oral.Susp PO DAILY PRN Constipation Methylphenidate HCl 20 mg 12/18/20 13:00 12/21/20 16:55 Methylphenidate Hcl 10 Mg Tablet PO 20 mg TID@0900,1300,1600 [facility] Administration Pt Own Med ( 1 each 12/15/20 21:00 12/21/20 14:42 Tobramycin/ EYE-BOTH 1 each Dexamethasone TID [facility] Administration Opthalmic Suspension ) Non-Formulary Medication 1 each 12/16/20 11:00 12/21/20 10:26 Patient Own Medication NOSTRIL-B Not Given 1000 [facility] Perphenazine 4 mg 12/21/20 12:35 Perphenazine 4 Mg Tablet PO TID PRN agitation Propranolol HCl 10 mg 12/20/20 17:00 12/21/20 16:47 Propranolol Hcl 10 Mg Tablet PO 10 mg DAILY@0900,1300,1700 [facility] Administration Protocol Propranolol HCl 10 mg 12/20/20 21:00 12/20/20 22:42 Propranolol Hcl 10 Mg Tablet PO 10 mg 2100 [facility] Administration Protocol Quetiapine Fumarate 100 mg 12/16/20 16:44 12/16/20 17:09 Quetiapine Fumarate 100 Mg Tablet PO 100 mg BID PRN Administration agitation Quetiapine Fumarate 100 mg 12/18/20 13:00 12/21/20 13:28 Quetiapine Fumarate 100 Mg Tablet PO 100 mg BID@0900,1300 [facility] Administration Quetiapine Fumarate 100 mg 12/20/20 17:00 12/21/20 16:48 Quetiapine Fumarate 100 Mg Tablet PO 100 mg DAILY@1700 [facility] Administration Quetiapine Fumarate 200 mg 12/21/20 21:00 Quetiapine Fumarate 200 Mg Tablet PO 2100 [facility] Vortioxetine 5 mg 12/17/20 09:00 12/21/20 09:10 Vortioxetine Hydrobromide 5 Mg Tablet PO 5 mg DAILY@0900 [facility] Administration Allergies Allergies Allergy/AdvReac Type Severity Reaction Status Date / Time ampicillin [AMPICILLIN] Allergy Unknown ERYTHEMA Unverified 07/21/20 15:48 NODOSUM (LEG SWELLING) droperidol [From INAPSINE] Allergy Unknown SEIZURES Unverified 07/21/20 15:48 oxycodone [From PERCOCET] Allergy Unknown DIFFICULTY Unverified 07/21/20 15:48 BREATHING trazodone [TRAZODONE] Allergy Unknown UNKNOWN Unverified 07/21/20 15:48 erythromycin base AdvReac Unknown STOMACH Unverified 07/21/20 15:48 [ERYTHROMYCIN BASE] UPSET Fish Containing Products AdvReac Unknown NAUSEA Unverified 07/21/20 15:48 Erythromycin Allergy Unknown Unknown Uncoded 12/14/20 15:48 Inapsine Allergy Unknown Unknown Uncoded 12/14/20 15:48 Assessment & Plan Assessment & Plan (1) Borderline personality disorder: Status: Acute Code(s): F60.3 - Borderline personality disorder (2) OCD (obsessive compulsive disorder): Status: Acute Code(s): F42.9 - Obsessive-compulsive disorder, unspecified (3) PTSD (post-traumatic stress disorder): Status: Acute Code(s): F43.10 - Post-traumatic stress disorder, unspecified (4) Major depression: Qualifiers: Major depression recurrence: recurrent Status: Acute Code(s): F32.9 - Major depressive disorder, single episode, unspecified Assessment and Plan: -Continue to work on IV Ketamine consultation -Add Gabapentin 400 mg dosing at 1700. -Keep Seroquel at 200 mg HS -Change Perphenazine to 4 mg tid-2 mg tolerated, but not strong enought to address sx (5) Suicide attempt by multiple drug overdose: Qualifiers: Encounter type: initial encounter Qualified Code(s): T50.912A - Poisoning by multiple unspecified drugs, medicaments and biological substances, intentional self-harm, initial encounter Status: Acute Code(s): T50.912A - Poisoning by multiple unspecified drugs, medicaments and biological substances, intentional self-harm, initial encounter Greater than 50% of the session was spent on counseling and/or coordination of care Reason for contiued inpatient stay Substantial Risk for: harm to self and rapid decompensation
[2020-12-21 18:00] VITALS: BP 136/64; PULSE 76; TEMP 35.7
[2020-12-21 22:06] VITALS: BP 136/64; PULSE 78
[2020-12-21] MEDS: QUEtiapine Fumarate 200 MG TABLET PO (22:09)
[2020-12-22 06:00] VITALS: BP 134/60; PULSE 73; RESP 18; TEMP 36.6; O2SAT 96
[2020-12-22 08:53] VITALS: BP 134/60; PULSE 73
[2020-12-22] MEDS: diazePAM 5 MG TABLET PO ×2 (08:53→13:21)
[2020-12-22] MEDS: QUEtiapine Fumarate 100 MG TABLET PO ×2 (08:53→13:20)
[2020-12-22] MEDS: Vortioxetine Hydrobromide 5 MG TABLET PO (08:53)
[2020-12-22] MEDS: Propranolol HCL 10 MG TABLET PO ×2 (08:53→13:21)
[2020-12-22] MEDS: Gabapentin 400 MG CAPSULE PO ×2 (08:53→13:20)
[2020-12-22] MEDS: Cyanocobalamin (Vitamin B-12) 1,000 MCG TABLET 1000 MCG PO (08:53)
[2020-12-22] MEDS: Methylphenidate HCl 10 MG TABLET 20 MG PO ×2 (08:57→13:29)
[2020-12-22 13:21] VITALS: BP 139/74; PULSE 88
--- NOTE | 2020-12-22 13:23 | P.DS_ITS ---
DS: Providers Provider Date of Service: 01/07/21 Date of admission: 12/14/20 18:08 Date of discharge: 12/22/20 Primary care physician: Sonny Parker MD Admitting clinician: Pat Dumont Attending physician on admission: Joe Shearer Consults: 12/21/20 10:00 Consult to Hospitalist Routine Consulting Provider: Hospitalist Reason For Exam: Breast Lump Attending physician on discharge: Joe Shearer Discharging clinician: Pat Dumont DS: Diagnosis Discharge Diagnosis (1) Borderline personality disorder: Status: Acute (2) OCD (obsessive compulsive disorder): Status: Acute (3) PTSD (post-traumatic stress disorder): Status: Acute (4) Major depression: Status: Acute Problem details: 65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 Pt reported taking the OD around 8am 12/13, and not sharing that she had done this until an afternoon appointment with her psychiatrist, Dr. Jaeger. Pt reports a history of SI for over 36 years. She reports several medicine trials, ECT, TMS and is currently trialing intranasal ketamine She reports a serious attempt in May 2020 where she was intubated and required [facility] ICU care and expresses much anger that precipitants to that attempt were never addressed, mostly due to the pandemic and resulting changes in care delivery. She identifies possible precipitants for current attempt as her pending [facility] and wanting him to be free of her as she feels she is a burden, but stating he has made her promise not to suicide and leave him without her. (5) Suicide attempt by multiple drug overdose: Status: Resolved DS: Medications Discharge Medications Home Medications: Home Medications Medication Instructions Recorded Confirmed cyanocobalamin (vitamin B-12) 1 tab PO DAILY 12/14/20 12/14/20 fluticasone propionate 1 spray INTRANASAL BID PRN 12/14/20 12/14/20 methylphenidate HCl 1 tab PO TID 12/14/20 12/14/20 quetiapine 1 tab PO BEDTIME 12/14/20 12/14/20 Previous Rx's Medication Instructions Recorded Patient Own Medication 1 ea NOSTRIL-R 1000 5 Days 12/22/20 diazepam 5 mg PO QID #0 tab 12/22/20 gabapentin 1 cap PO QID #0 cap 12/22/20 propranolol 10 mg PO QID #0 tab 12/22/20 propranolol 10 mg PO QID #120 tab 12/22/20 quetiapine 1 tab PO TID #0 tab 12/22/20 vortioxetine [Trintellix] 5 mg PO DAILY@0900 #30 tab 12/22/20 Discharge Plan Discharge Anticipated Discharge Date/Time: 12/22/20 14:00 Patient Disposition: Home, Self-Care Referrals: Dr. Luisana Atr, therapist [Other] - 12/29/20 2:00 pm (Telehealth) Mario Jaeger [Physician] - 12/23/20 2:40 pm (Telehealth) Sonny Parker MD [Primary Care Provider] - (Will call you directly.) Discharge Medications: New Trintellix 5 mg Tablet 5 mg PO DAILY@0900 Qty: 30 RF: 0 Patient Own Medication 1 ea NOSTRIL-R 1000 5 Days RF: 0 propranolol 10 mg Tablet 10 mg PO QID Qty: 0 RF: 0 propranolol 10 mg tablet 10 mg PO QID Qty: 120 RF: 0 perphenazine 4 mg tablet 4 mg PO TID PRN (Reason: agitation) Qty: 42 RF: 0 Continued methylphenidate HCl 20 mg tablet 1 tab PO TID RF: 0 quetiapine 200 mg tablet 1 tab PO BEDTIME RF: 0 cyanocobalamin (vitamin B-12) 1,000 mcg tablet 1 tab PO DAILY RF: 0 fluticasone propionate 50 mcg/actuation spray,suspension 1 spray intranasal BID PRN (Reason: congestion) RF: 0 Changed quetiapine 100 mg tablet 1 tab PO TID Qty: 0 RF: 0 diazepam 5 mg Tablet 5 mg PO QID Qty: 0 RF: 0 gabapentin 400 mg capsule 1 cap PO QID Qty: 0 RF: 0 Discontinued sertraline 100 mg tablet 200 mg PO DAILY RF: 0 propranolol 10 mg tablet 10 mg PO BID@0900,1700 RF: 0 diazepam 10 mg tablet 1 tab PO BEDTIME RF: 0 propranolol 20 mg Tablet 20 mg PO BEDTIME RF: 0 Discharge Orders: Discharge Order (Routine); Ordered 12/22/20 Ordered By: Pat Dumont Diet: advance to usual diet Activity on Discharge: As tolerated Stand Alone Forms: Patient Portal Discharge page, Community Support Visit Report Forms: Patient Portal Discharge page Care Plan Goals: Decrease in depressive symptoms Mood stabillization Health Concerns: Safety Mood Stabilization Plan of Treatment: Follow up with appointments Take medications as directed. Call and/or return as needed Trintellix 5 mg daily has been added for antidepressant trial Seroquel is now 100 mg 3 times per day and 200 mg at bedtime Gabapentin is now 400 mg 4 times per day Valium dosing is now divided to 5 mg 4 times per day Propranolol is now 10 mg 4 times a day We have added a 5pm dosage of Seroquel, Gabapentin, Propranolol and divided Valium dosage to provide improved mood coverage during difficult evening times. Continue intranasal ketamine at 1000am We have discussed IV Ketamine resources for consultation, including 1. [place] [facility] [phone] 2. [facility] [phone] Nohelia Landaverde's IV Ketamine practice [phone]. We have also discussed looking at the [facility] programs [email or web address] Discharge Date/Time: 12/22/20 15:02 Mental Status Exam Mental Status Exam Patient Appearance: Appropriate Patient Orientation: Person, Place, Time and Situation Level of Consciousness: Alert Patient Behavior: Appropriate and Talkative Mood Description: Calm Affect Description: Constricted Patient Cognition Impaired: No Ability to Follow Directions: Good Speech Pattern: Clear and Spontaneous Speech Memory Description: Intact Hallucinations: None Delusions: Not Present Thought Process: Intact Thought Content: positive for Intact Depressive Symptoms: Increased Anxiety Judgement: Good Data Imaging Diagnostic Imaging Impressions Chest X-Ray 12/13/20 16:42 IMPRESSION: Unremarkable examination. Head CT 12/17/20 10:00 IMPRESSION: No acute intracranial pathology. DS: Summary Hospital Course Hospital Course: Pt was admitted on conditional voluntary. In the first few days of her admission she expressed much rage, anger and frustration with aggression. She was able to identify the afternoon time after 4pm as the time when these feelings would surface- as a result regime changes were made-propranolol, seroquel, gabapentin were increased, valium dosage timing was divided, adding a fourth dosing of regime at 1700. DIRECTOR OF CLINICAL EDUCATION pt and Dr. Jaeger stopped Sertraline. Pt's next trial was initiated, Trintellix, as she was not interested in a re-trial of Paxil or a trial of Luvox. Perphenazine was trialed for a prn for grounding at 4 mg which she reported was useful. She continued intranasal ketamine, with a timing change to morning which she had done at home DIRECTOR OF CLINICAL EDUCATION. This was [place] [facility] [place], Kade, and Dr. Shearer. She reported much interest in an IV Ketamine trial and asked for [facility] admssion. Insurance would not authorize this and as a result she will consult with [place], [facility] or Dr. Landaverde's office for after discharge. Upon admission, Christie discussed anger with not being able to process stressors for her nearly lethal attempt in May 2020 which she believes has carried over to this admission. She had written a chronology of stressors beginning on 07/08/19 which we did review (hard copy in record) and themes which were discussed were planning when increased support is needed (this in reference to Christie feeling overwhelmed with her shoulder fracture 07/23 and stopping her treatment to help to care for her after THR), asking for assistance with medical advocacy when her hernia developed in 12/2019, changes in support quality and quantity during the pandemic, using medications as solutions to manage situations vs asking for help, and much concern about finances and entering [facility]. She will continue to work with these issues in out patient care. She was able to work in the milieu and with the team and discharged the day before she was due to have her COVID vaccine Time spent discussing smoking cessation with patient: 3 to 10 minutes Status at Discharge Cognitive/behavioral status at discharge: alert, oriented, mood and affect constricted, able to contract for safety Functional status at discharge: independent ambulation Overall status at discharge: patient is progressing back to baseline Time Spent with Patient Time attestation: Total time spent providing and/or coordinating discharge services: 35 Time spent: Greater than 30 minutes
== END 2020-12-22 15:02 | disposition home or self-care (01) | DRG 751 ==
LOC: HO.ED 12-14 15:59 → HO.PM5 12-14 18:11
PROVIDERS: Admitting Provider Psychiatry & Neurology Psychiatry; Emergency Provider Emergency Medicine; PCP Internal Medicine; Visit Provider Clinical Nurse Specialist Psychiatric/Mental Health, Adult
DX: F33.2 Major depressive disorder, recurrent severe without psychotic features (principal); R45.851 Suicidal ideations; Z91.5 Personal history of self-harm; T44.7X2A Poisoning by beta-adrenoreceptor antagonists, intentional self-harm, initial encounter; T43.592A Poisoning by other antipsychotics and neuroleptics, intentional self-harm, initial encounter; T42.6X2A Poisoning by other antiepileptic and sedative-hypnotic drugs, intentional self-harm, initial encounter; T42.4X2A Poisoning by benzodiazepines, intentional self-harm, initial encounter; T41.292A Poisoning by other general anesthetics, intentional self-harm, initial encounter; F42.9 Obsessive-compulsive disorder, unspecified; F60.3 Borderline personality disorder; Y92.9 Unspecified place or not applicable; Z20.822 Contact with and (suspected) exposure to COVID-19; Z23 Encounter for immunization; Z88.5 Allergy status to narcotic agent; Z79.51 Long term (current) use of inhaled steroids; Z79.899 Other long term (current) drug therapy
CPT/HCPCS: 36415; 70450; 71045; 80048; 80076; 80307; 80320; 81003; 83690; 84484; 85025; 87635; 90686; 93005; 96360; 99285; G0480

== ENCOUNTER 2021-11-08 16:54 | Inpatient (IN) | payer MEDICARE, SELFPAY ==
[2021-11-08 18:13] VITALS: BP 130/54; PULSE 54; RESP 18; TEMP 36.6; O2SAT 95; BMI 36.8
[2021-11-08 19:22] VITALS: BP 154/62; PULSE 64; RESP 19; TEMP 36.9; O2SAT 97
[2021-11-08] MEDS: Diphth,Pertus(ACell),Tet Adult 0.5 ML SYRINGE IM (19:28)
--- NOTE | 2021-11-08 19:45 | PC.NURSE ---
Pt transferred from hallway recliner to room 9, to stretcher. Pt aaox4, changed into hospital clothing and belongings secured with assistance from Michael in security and this RN at bedside. Pt agreeable and compliant with pt care. Pt medicated per MAR with tdap, lido at bedside for provider use for suturing. Pt reports I'm just done, I don't want to do this anymore. I don't want to go to therapy anymore, I don't want to take meds, I don't want to live anymore. Pt denies self inflicted wounds were suicide attempt. Pt states I wouldn't kill myself, but I want to not wake up. Stretcher in lowest locked position, rails raised, sitter at bedside.
[2021-11-08 19:53] LABS: COVID-19 Test Negative (Negative)
--- NOTE | 2021-11-08 20:36 | MHC.CARE ---
CARE TEAM met with pt in ED 9. She was observed pacing the ED. She presented irritable and with pressured speech. She expressed frustration due to being in the ED since 44pm and has not receiving treatment. She reported she cut her left wrist with a knife and is in need of stitches. She refused to provide additional details of incident. Pt disclosed she does not drink alcohol and does not engage in substance use, therefore is refusing to provide urine for toxic screen. With redirection from the CARE TEAM, she was escorted to the bathroom and provided urine sample. According to ED nurse, pt is still in the process of being medically cleared, therefore pt will be assessed by CARE TEAM in the morning.
[2021-11-08 20:52] LABS: Amphetamine Screen Urine Not Detected (Not Detect); Barbiturates, Urine Not Detected (Not Detect); Benzodiazepines Screen Urine POSITIVE (Not Detect); Cannabinoid Screen Urine Not Detected (Not Detect); Cocaine Screen Urine Not Detected (Not Detect); Fentanyl, urine Not Detected (Not Detect); Opiate Screen Urine Not Detected (Not Detect); Phencyclidine Screen Urine Not Detected (Not Detect)
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
--- NOTE | 2021-11-08 22:30 | PC.NURSE ---
Patient just got transferred from main ED to POD, independent ambulation, pending blood work, denied distress at this time, medically cleared for crises evaluation for self harm ideation and cutting her left wrist today requiring 5 + shantell, care team Charleen just notified that patient is reevaluation in AM by care team, patient seems calm and quiet, will continue to monitor.
[2021-11-08 23:32] VITALS: BP 110/54; PULSE 52; RESP 16; TEMP 5482.2; TEMP 9900; O2SAT 94
[2021-11-09] MEDS: Acetaminophen 325 MG TABLET 975 MG PO (00:18)
[2021-11-09] MEDS: Gabapentin 400 MG CAPSULE PO ×4 (00:36→22:07)
[2021-11-09] MEDS: QUEtiapine Fumarate 25 MG TABLET PO ×3 (00:47→19:30)
--- NOTE | 2021-11-09 02:14 | PC.NURSE ---
PT in bed resting this shift. APAP given for headache with good effect. PT VS, propanolol held due to HR of 52.PT denies SI/HI at this time.
[2021-11-09] MEDS: Cyanocobalamin (Vitamin B-12) 1,000 MCG TABLET 1000 MCG PO (09:17)
[2021-11-09] MEDS: FLUoxetine HCl 20 MG CAPSULE 60 MG PO (09:17)
[2021-11-09] MEDS: diazePAM 5 MG TABLET PO ×2 (11:06→19:30)
[2021-11-09 11:24] VITALS: RESP 15
[2021-11-09 14:22] VITALS: BP 128/64; PULSE 63
[2021-11-09] MEDS: Propranolol HCL 20 MG TABLET PO (14:24)
[2021-11-09] MEDS: Methylphenidate HCl 10 MG TABLET 20 MG PO (16:10)
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
[2021-11-09] MEDS: LORazepam 1 MG TABLET PO (16:55)
[2021-11-09] MEDS: Acetaminophen 325 MG TABLET 650 MG PO (20:06)
[2021-11-09 22:07] VITALS: BP 111/47; PULSE 58; RESP 16; TEMP 36.6; O2SAT 95
[2021-11-09] MEDS: QUEtiapine Fumarate 100 MG TABLET PO (22:07)
[2021-11-09] MEDS: diazePAM 5 MG TABLET 10 MG PO (22:07)
--- NOTE | 2021-11-10 05:52 | PC.NURSE ---
Patient slept through the night, no distress observed/reported, compliant with medication, behavior appropriate, pending S1 admission today, patient left wrist dressing changed per patient's request, wound well approximated with secured 20 shantell, washed with NS, pat dry, applied thin layer bacitracin, secured with dressing, VSS, will continue to monitor.
[2021-11-10 06:05] VITALS: BP 116/58; PULSE 56; RESP 16; TEMP 36.2; O2SAT 96
--- NOTE | 2021-11-10 08:17 | ECG_ITS ---
Test Reason : medical clearance Blood Pressure : / mmHG Vent. Rate : 058 BPM Atrial Rate : 058 BPM P-R Int : 164 ms QRS Dur : 090 ms QT Int : 434 ms P-R-T Axes : 033 006 020 degrees QTc Int : 426 ms Sinus bradycardia Nonspecific ST and T wave abnormality Abnormal ECG When compared with ECG of 14-DEC-2020 11:32, No significant change was found Referred By: Kate Lackey Electronically Signed By:TRA MENDEZ MD
[2021-11-10 08:19] VITALS: BP 117/59; PULSE 89; TEMP 36.4; O2SAT 96
[2021-11-10] MEDS: QUEtiapine Fumarate 25 MG TABLET PO ×2 (09:41→15:17)
[2021-11-10] MEDS: Cyanocobalamin (Vitamin B-12) 1,000 MCG TABLET 1000 MCG PO (09:41)
[2021-11-10] MEDS: diazePAM 5 MG TABLET PO ×2 (09:41→15:17)
[2021-11-10] MEDS: FLUoxetine HCl 20 MG CAPSULE 60 MG PO (09:41)
[2021-11-10] MEDS: Gabapentin 400 MG CAPSULE PO ×3 (09:41→21:55)
[2021-11-10 09:49] LABS: MANUAL DIFF FLAG NO
[2021-11-10 10:08] LABS: Basophils Percent Auto 0.2 % (0-2); Eosinophils Absolute Auto 0.1 X10*3/uL (0.0-0.4); Hematocrit 43.2 % (37.0-47.0); Hemoglobin 14.1 g/dl (12.0-16.0); Imm Gran Abs Auto 0.02 X10*3/uL (0.00-0.03); Imm Gran Pct Auto 0.3 % (0.0-0.4); Lymphocytes Percent Auto 16.8 % (20-40); Mean Corpuscular HGB Conc 32.6 g/dl (31.0-35.0); Mean Corpuscular Hemoglobin 30.9 pg (27.0-33.0); Mean Corpuscular Volume 94.7 fL (80.0-98.0); Mean Platelet Volume 10.8 fL (9.4-12.3); Monocytes Absolute Auto 0.5 X10*3/uL (0.1-1.2); Monocytes Percent Auto 7.8 % (2-11); Neutrophils Absolute Auto 4.5 x10*3/uL (2.0-8.3); Neutrophils Percent Auto 73.9 % (45-73); Platelet Count 138 X10*3/uL (160-400); Red Blood Count 4.56 X10*6/uL (4.20-5.50); Red Cell Distribution Width 13.6 % (11.0-16.0); White Blood Count 6.1 X10*3/uL (4.8-10.8)
[2021-11-10 10:14] LABS: Alanine Aminotransferase 13 U/L (0-31); Albumin Level 3.8 g/dL (3.5-5.0); Alkaline Phosphatase 74 U/L (39-117); Anion Gap 10 (12-20); Aspartate Amino Transferase 19 U/L (5-31); Bilirubin Direct 0.2 mg/dL (0.0-0.5); Bilirubin Total 0.3 mg/dL (0.0-1.0); Blood Urea Nitrogen 11 mg/dL (9-16); Calcium 9.4 mg/dL (8.4-10.2); Carbon Dioxide 32 mmol/L (22-29); Chloride 104 mmol/L (96-108); Creatinine Clr Calc Pharmacy 66.9; Estimated Glomerular Filt Rate 59; Glucose Random 103 mg/dL (60-115); Sodium 142 mmol/L (135-145); Total Protein 6.6 g/dL (6.5-8.0)
[2021-11-10 10:47] LABS: COVID-19 Test Negative (Negative); IDNOW Serial# 9DD0AD1C
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
[2021-11-10] MEDS: Methylphenidate HCl 10 MG TABLET 20 MG PO (15:16)
[2021-11-10] MEDS: Propranolol HCL 20 MG TABLET PO ×2 (15:29→21:55)
[2021-11-10] MEDS: Acetaminophen 325 MG TABLET 650 MG PO (15:30)
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
[2021-11-10 15:52] VITALS: BP 165/64; PULSE 67; RESP 16; TEMP 36.6; O2SAT 92
[2021-11-10 18:00] VITALS: BP 118/82; PULSE 61; RESP 17; TEMP 36.6; O2SAT 94
[2021-11-10] MEDS: QUEtiapine Fumarate 100 MG TABLET PO (21:55)
[2021-11-10] MEDS: diazePAM 5 MG TABLET 10 MG PO (21:55)
[2021-11-11] MEDS: LORazepam 1 MG TABLET PO (01:42)
[2021-11-11] MEDS: QUEtiapine Fumarate 25 MG TABLET PO ×3 (09:08→17:36)
[2021-11-11] MEDS: Cyanocobalamin (Vitamin B-12) 1,000 MCG TABLET 1000 MCG PO (09:08)
[2021-11-11] MEDS: diazePAM 5 MG TABLET PO ×2 (09:08→14:19)
[2021-11-11] MEDS: Gabapentin 400 MG CAPSULE PO ×3 (09:08→22:07)
[2021-11-11] MEDS: FLUoxetine HCl 20 MG CAPSULE 60 MG PO (09:09)
--- NOTE | 2021-11-11 12:29 | P.PNPSI_ITS ---
Subjective Subjective Date of Service: 11/11/21 Reason For Visit: depression,suicidal ideation Interim History: pt nick describes her recent course, stating she had a severe adverse drug reaction to fetzima which has resulted in months of somatic symptoms which she feels culminated in her slashing at her wrist a number of times just prior to admission. she denies depression and states that rather, she is angry. nevertheless she later states she is anxious and complains she is unable to get her PRN propranolol due to her disatolic BP parameter being set too high. MD agrees to lower it from hold for less than 60 to hold for less than 50. pt asks for more for anxiety and agrees to add a dose of seroquel to her current regimen of 25-25-100 so that now it will be 79-11-59-100. per staff, pt signed 3-day notice yesterday. eating and sleeping, no behavioral disturbances. Mental Status Exam Mental Status Exam Narrative: adequately dressed and groomed. cooperative with interview. PMA of dramatic gestures as she tells her tale. speech incr in rate, amount, loudness. decr latency. thoughts linear and logical. affect full range, hyper-intense, non-labile. mood angry. reports SI as recently as this morning. no HI/AVH expressed. Diagnostics Vital Signs (24Hr): Vital Signs - 24 hr 11/10/21 15:52 11/10/21 18:00 Temperature 98 F 98 F Pulse Rate 67 61 Respiratory Rate 16 17 Blood Pressure 165/64 H 118/82 Pulse Oximetry 92 94 BMI result Body Mass Index 36.8 Labs Results: 11/10/21 09:44 11/10/21 09:44 Labs: Laboratory Results - last 48 hr 11/10/21 11/10/21 11/10/21 09:44 09:44 10:19 WBC 6.1 RBC 4.56 Hgb 14.1 Hct 43.2 MCV 94.7 MCH 30.9 MCHC 32.6 RDW 13.6 Plt Count 138 L MPV 10.8 Immature Gran % (Auto) 0.3 Neut % (Auto) 73.9 H Lymph % (Auto) 16.8 L [place] % (Auto) 7.8 Eos % (Auto) 1.0 Baso % (Auto) 0.2 Lymph # (Auto) 1.0 L [place] # (Auto) 0.5 Eos # (Auto) 0.1 Baso # (Auto) 0.0 Abs Immat Gran (auto) 0.02 Absolute Neuts (auto) 4.5 Absolute Nucleated RBC 0.000 Nucleated RBC % (auto) 0.0 Sodium 142 Potassium 4.0 Chloride 104 Carbon Dioxide 32 H Anion Gap 10 L BUN 11 Creatinine 0.95 Estim Creat Clear Calc 66.9 Estimated GFR 59 Random Glucose 103 Calcium 9.4 D Total Bilirubin 0.3 Direct Bilirubin 0.2 AST 19 ALT 13 Alkaline Phosphatase 74 Total Protein 6.6 Albumin 3.8 COVID-19 (MELINA) Negative COVID-19 Clin Com See Note Medications Medications Current Medications Acetaminophen (Acetaminophen 325 Mg Tablet) 650 mg PO Q6H PRN PRN Reason: Headache/Pain Mild Scale (1-3) Last Admin: 11/10/21 15:30 Dose: 650 mg Documented by: Al Hydroxide/Mg Hydroxide (Magnesium Hydrox/Alum Hydrox 30 Ml Oral.Susp) 30 ml PO Q6H PRN PRN Reason: Heartburn/Nausea Cyanocobalamin (Cyanocobalamin (Vitamin B-12) 1,000 Mcg Tablet) 1,000 mcg PO DAILY [facility] Last Admin: 11/11/21 09:08 Dose: 1,000 mcg Documented by: Diazepam (Diazepam 5 Mg Tablet) 10 mg PO BEDTIME [facility] Last Admin: 11/10/21 21:55 Dose: 10 mg Documented by: Diazepam (Diazepam 5 Mg Tablet) 5 mg PO BID@0800,1300 [facility] Last Admin: 11/11/21 09:08 Dose: 5 mg Documented by: Fluoxetine HCl (Fluoxetine Hcl 20 Mg Capsule) 60 mg PO DAILY [facility] Last Admin: 11/11/21 09:09 Dose: 60 mg Documented by: Gabapentin (Gabapentin 400 Mg Capsule) 400 mg PO TID [facility] Last Admin: 11/11/21 09:08 Dose: 400 mg Documented by: Hydroxyzine HCl (Hydroxyzine Hcl 25 Mg Tablet) 25 mg PO BEDTIME PRN PRN Reason: Anxiety Lorazepam (Lorazepam 1 Mg Tablet) 1 mg PO TID PRN PRN Reason: Anxiety Last Admin: 11/11/21 01:42 Dose: 1 mg Documented by: Magnesium Hydroxide (Milk Of Magnesia 30 Ml Oral.Susp) 30 ml PO DAILY PRN PRN Reason: Constipation Methylphenidate HCl (Methylphenidate Hcl 10 Mg Tablet) 20 mg PO TID@0800,1300,1600 [facility] Last Admin: 11/11/21 09:14 Dose: Not Given Documented by: Pharmacy Consult (Consult Rx Perform Med Rec) 1 each MISCELLANE ONCE PRN PRN Reason: Consult order Propranolol HCl (Propranolol Hcl 20 Mg Tablet) 20 mg PO DAILY PRN; Protocol PRN Reason: Anxiety Propranolol HCl (Propranolol Hcl 20 Mg Tablet) 20 mg PO TID [facility]; Protocol Last Admin: 11/11/21 09:45 Dose: Not Given Documented by: Quetiapine Fumarate (Quetiapine Fumarate 100 Mg Tablet) 100 mg PO BEDTIME [facility] Last Admin: 11/10/21 21:55 Dose: 100 mg Documented by: Quetiapine Fumarate (Quetiapine Fumarate 25 Mg Tablet) 25 mg PO BID@0800,1300 [facility] Last Admin: 11/11/21 09:08 Dose: 25 mg Documented by: Allergies Allergies Allergy/AdvReac Type Severity Reaction Status Date / Time ampicillin [AMPICILLIN] Allergy Unknown ERYTHEMA Verified 11/08/21 18:13 NODOSUM (LEG SWELLING) droperidol [From INAPSINE] Allergy Unknown SEIZURES Verified 11/08/21 18:13 oxycodone [From PERCOCET] Allergy Unknown DIFFICULTY Verified 11/08/21 18:13 BREATHING trazodone [TRAZODONE] Allergy Unknown UNKNOWN Verified 11/08/21 18:13 erythromycin base AdvReac Unknown STOMACH Verified 11/08/21 18:13 [ERYTHROMYCIN BASE] UPSET Fish Containing Products AdvReac Unknown NAUSEA Verified 11/08/21 18:13 Erythromycin Allergy Unknown Unknown Uncoded 11/08/21 18:13 Inapsine Allergy Unknown Unknown Uncoded 11/08/21 18:13 Assessment & Plan Assessment & Plan (1) Bipolar 1 disorder: Status: Acute Code(s): F31.9 - Bipolar disorder, unspecified (2) Borderline personality disorder: Status: Acute Code(s): F60.3 - Borderline personality disorder (3) OCD (obsessive compulsive disorder): Status: Acute Code(s): F42.9 - Obsessive-compulsive disorder, unspecified (4) OCD (obsessive compulsive disorder): Status: Acute Code(s): F42.9 - Obsessive-compulsive disorder, unspecified (5) PTSD (post-traumatic stress disorder): Status: Acute Code(s): F43.10 - Post-traumatic stress disorder, unspecified (6) Laceration of wrist, left: Status: Acute Code(s): S61.512A - Laceration without foreign body of left wrist, initial encounter Assessment and Plan: middle-aged female with a long history of borderline personality disorder, bipolar disorder, OCD, PTSD and self-harming behavior with several admissions into the hospital for self harming and suicidal ideation. The patie nt was admitted into the facility due to an episode of impulsive self-harm in, by cutting herself with a knife on her wrist. At this moment, the trigger is not clear. Plan 1. Continue same medications. 2. Contact Dr. Jaeger to gather more collateral information. 3. Reassessment with results I spent minutes with the patient and/or on the patient floor today, grea ter than?50% of which was spent counseling/coordinating care. Reason for contiued inpatient stay Substantial Risk for: harm to self
[2021-11-11] MEDS: Methylphenidate HCl 10 MG TABLET 20 MG PO ×2 (14:20→17:36)
[2021-11-11 14:24] VITALS: BP 140/66; PULSE 61
[2021-11-11] MEDS: Propranolol HCL 20 MG TABLET PO ×2 (14:26→22:07)
[2021-11-11] MEDS: diazePAM 5 MG TABLET 10 MG PO (22:06)
[2021-11-11] MEDS: QUEtiapine Fumarate 100 MG TABLET PO (22:07)
[2021-11-11 22:12] VITALS: BP 132/82; PULSE 93; RESP 17; TEMP 36.6; O2SAT 93
[2021-11-12 09:20] VITALS: BP 143/55; PULSE 60; RESP 16; TEMP 35.7; O2SAT 94
[2021-11-12] MEDS: FLUoxetine HCl 20 MG CAPSULE 60 MG PO (09:34)
[2021-11-12] MEDS: Cyanocobalamin (Vitamin B-12) 1,000 MCG TABLET 1000 MCG PO (09:34)
[2021-11-12] MEDS: diazePAM 5 MG TABLET PO ×2 (09:34→12:58)
[2021-11-12] MEDS: Gabapentin 400 MG CAPSULE PO ×3 (09:34→22:15)
[2021-11-12] MEDS: QUEtiapine Fumarate 25 MG TABLET PO ×3 (09:34→16:52)
[2021-11-12] MEDS: Propranolol HCL 20 MG TABLET PO ×3 (09:34→22:17)
[2021-11-12] MEDS: Methylphenidate HCl 10 MG TABLET 20 MG PO ×3 (09:41→16:54)
--- NOTE | 2021-11-12 13:53 | HO.PSYCHPN ---
Subjective Subjective Date of Service: 11/12/21 Reason For Visit: depression,suicidal ideation Interim History: pt reports she had a better day yesterday because it was quieter. she slept well last night. she is concerned treaters think of her as depressed, but she is emphatic that that is not the case she is ANGRY. discussion held around mood stabilizers. R/B of VPA discussed, but may be interested. would like to discuss with attending tomorrow. per staff, labile. very angry and anxious in the morning, better in chary. taking meds, slept well. Mental Status Exam Mental Status Exam Narrative: adequately dressed and groomed. cooperative with interview. no PMA/PMR. speech incr in rate, amount. nml loudness. decr latency. thoughts linear and logical. affect full range, hyper-intense, non-labile. mood angry. no SI/HI/AVH expressed. Diagnostics Vital Signs (24Hr): Vital Signs - 24 hr 11/11/21 14:24 11/11/21 22:12 11/12/21 09:20 Temperature 97.9 F 96.2 F L Pulse Rate 61 93 60 Respiratory Rate 17 16 Blood Pressure 140/66 H 132/82 143/55 H Pulse Oximetry 93 94 BMI result Body Mass Index 36.8 Labs Results: 11/10/21 09:44 11/10/21 09:44 Medications Medications Current Medications Acetaminophen (Acetaminophen 325 Mg Tablet) 650 mg PO Q6H PRN PRN Reason: Headache/Pain Mild Scale (1-3) Last Admin: 11/10/21 15:30 Dose: 650 mg Documented by: Al Hydroxide/Mg Hydroxide (Magnesium Hydrox/Alum Hydrox 30 Ml Oral.Susp) 30 ml PO Q6H PRN PRN Reason: Heartburn/Nausea Cyanocobalamin (Cyanocobalamin (Vitamin B-12) 1,000 Mcg Tablet) 1,000 mcg PO DAILY [facility] Last Admin: 11/12/21 09:34 Dose: 1,000 mcg Documented by: Diazepam (Diazepam 5 Mg Tablet) 10 mg PO BEDTIME [facility] Last Admin: 11/11/21 22:06 Dose: 10 mg Documented by: Diazepam (Diazepam 5 Mg Tablet) 5 mg PO BID@0800,1300 [facility] Last Admin: 11/12/21 12:58 Dose: 5 mg Documented by: Fluoxetine HCl (Fluoxetine Hcl 20 Mg Capsule) 60 mg PO DAILY [facility] Last Admin: 11/12/21 09:34 Dose: 60 mg Documented by: Gabapentin (Gabapentin 400 Mg Capsule) 400 mg PO TID [facility] Last Admin: 11/12/21 13:01 Dose: 400 mg Documented by: Hydroxyzine HCl (Hydroxyzine Hcl 25 Mg Tablet) 25 mg PO BEDTIME PRN PRN Reason: Anxiety Lorazepam (Lorazepam 1 Mg Tablet) 1 mg PO TID PRN PRN Reason: Anxiety Last Admin: 11/11/21 01:42 Dose: 1 mg Documented by: Magnesium Hydroxide (Milk Of Magnesia 30 Ml Oral.Susp) 30 ml PO DAILY PRN PRN Reason: Constipation Methylphenidate HCl (Methylphenidate Hcl 10 Mg Tablet) 20 mg PO TID@0800,1300,1600 [facility] Last Admin: 11/12/21 12:58 Dose: 20 mg Documented by: Pharmacy Consult (Consult Rx Perform Med Rec) 1 each MISCELLANE ONCE PRN PRN Reason: Consult order Propranolol HCl (Propranolol Hcl 20 Mg Tablet) 20 mg PO DAILY PRN; Protocol PRN Reason: Anxiety Propranolol HCl (Propranolol Hcl 20 Mg Tablet) 20 mg PO TID [facility]; Protocol Last Admin: 11/12/21 13:01 Dose: 20 mg Documented by: Quetiapine Fumarate (Quetiapine Fumarate 100 Mg Tablet) 100 mg PO BEDTIME [facility] Last Admin: 11/11/21 22:07 Dose: 100 mg Documented by: Quetiapine Fumarate (Quetiapine Fumarate 25 Mg Tablet) 25 mg PO TID@0800,1300,1700 [facility] Last Admin: 11/12/21 12:58 Dose: 25 mg Documented by: Allergies Allergies Allergy/AdvReac Type Severity Reaction Status Date / Time ampicillin [AMPICILLIN] Allergy Unknown ERYTHEMA Verified 11/08/21 18:13 NODOSUM (LEG SWELLING) droperidol [From INAPSINE] Allergy Unknown SEIZURES Verified 11/08/21 18:13 oxycodone [From PERCOCET] Allergy Unknown DIFFICULTY Verified 11/08/21 18:13 BREATHING trazodone [TRAZODONE] Allergy Unknown UNKNOWN Verified 11/08/21 18:13 erythromycin base AdvReac Unknown STOMACH Verified 11/08/21 18:13 [ERYTHROMYCIN BASE] UPSET Fish Containing Products AdvReac Unknown NAUSEA Verified 11/08/21 18:13 Erythromycin Allergy Unknown Unknown Uncoded 11/08/21 18:13 Inapsine Allergy Unknown Unknown Uncoded 11/08/21 18:13 Assessment & Plan Assessment & Plan (1) Bipolar 1 disorder: Status: Acute Code(s): F31.9 - Bipolar disorder, unspecified (2) Borderline personality disorder: Status: Acute Code(s): F60.3 - Borderline personality disorder (3) OCD (obsessive compulsive disorder): Status: Acute Code(s): F42.9 - Obsessive-compulsive disorder, unspecified (4) OCD (obsessive compulsive disorder): Status: Acute Code(s): F42.9 - Obsessive-compulsive disorder, unspecified (5) PTSD (post-traumatic stress disorder): Status: Acute Code(s): F43.10 - Post-traumatic stress disorder, unspecified (6) Laceration of wrist, left: Status: Acute Code(s): S61.512A - Laceration without foreign body of left wrist, initial encounter Assessment and Plan: middle-aged female with a long history of borderline personality disorder, bipolar disorder, OCD, PTSD and self-harming behavior with several admissions into the hospital for self harming and suicidal ideation. The patient was admitted into the facility due to an episode of impulsive self-harm in, by cutting herself with a knife on her wrist. At this moment, the trigger is not clear. Plan 1. Continue same medications. T/C mood stabilizer, such as VPA. 2. Contact Dr. Jaeger to gather more collateral information. 3. Reassessment with results I spent minutes with the patient and/or on the patient floor today, greater than?50% of which was spent counseling/coordinating care. Reason for contiued inpatient stay Substantial Risk for: harm to self
[2021-11-12 19:30] VITALS: BP 119/57; PULSE 60; RESP 17; TEMP 36.6; O2SAT 94
[2021-11-12] MEDS: diazePAM 5 MG TABLET 10 MG PO (22:15)
[2021-11-12] MEDS: QUEtiapine Fumarate 100 MG TABLET PO (22:16)
[2021-11-12] MEDS: Acetaminophen 325 MG TABLET 650 MG PO (22:17)
--- NOTE | 2021-11-13 03:41 | PC.ADMIT ---
LATE ENTRY for 11/10/21: Kendell Alejandro informed of pt's admission.
[2021-11-13 08:00] VITALS: BP 121/56; PULSE 57; RESP 17; TEMP 36.2; O2SAT 95
[2021-11-13] MEDS: Cyanocobalamin (Vitamin B-12) 1,000 MCG TABLET 1000 MCG PO (08:40)
[2021-11-13] MEDS: Gabapentin 400 MG CAPSULE PO ×3 (08:40→22:28)
[2021-11-13] MEDS: FLUoxetine HCl 20 MG CAPSULE 60 MG PO (08:40)
[2021-11-13] MEDS: QUEtiapine Fumarate 25 MG TABLET PO ×3 (08:40→17:04)
[2021-11-13] MEDS: diazePAM 5 MG TABLET PO ×2 (08:40→14:00)
[2021-11-13] MEDS: Methylphenidate HCl 10 MG TABLET 20 MG PO ×3 (09:03→17:04)
[2021-11-13] MEDS: LORazepam 1 MG TABLET PO ×2 (09:03→20:56)
[2021-11-13] MEDS: Propranolol HCL 20 MG TABLET PO ×2 (14:00→20:56)
--- NOTE | 2021-11-13 14:32 | HO.PSYCHPN ---
Subjective Subjective Date of Service: 11/13/21 Reason For Visit: depression,suicidal ideation Subjective Notes: Conditional Voluntary Interim History: The patient revoked her 3 day notice letter. She spent a long conversation with the human rights officer over the weekend and she came with several requests. On interview, the patient reports that she is not feeling depressed or manic that she has intense anger at times and she explained in detail how come she hurt herself while she was in her home. She also was concerned about her MRI and the results son and explained her that they could be normal in her case. She agreed to have a Rebecca test for tomorrow. Mental Status Exam Mental Status Exam Patient Appearance: Well Grooomed Patient Orientation: Person Level of Consciousness: Awake Patient Behavior: Appropriate, Talkative and Cooperative Mood Description: Suspicious Affect Description: Constricted Patient Cognition Impaired: No Ability to Follow Directions: Good Speech Pattern: Clear Memory Description: Intact Hallucinations: None Delusions: Not Present Thought Process: Linear Thought Content: positive for Obsessional Thoughts, positive for Perseveration and positive for Poverty of Content Judgement: Poor Diagnostics Vital Signs (24Hr): Vital Signs - 24 hr 11/12/21 19:30 11/13/21 08:00 Temperature 97.8 F 97.1 F Pulse Rate 60 57 Respiratory Rate 17 17 Blood Pressure 119/57 L 121/56 L Pulse Oximetry 94 95 BMI result Body Mass Index 36.8 Labs Results: 11/10/21 09:44 11/10/21 09:44 Medications Medications Current Medications Acetaminophen (Acetaminophen 325 Mg Tablet) 650 mg PO Q6H PRN PRN Reason: Headache/Pain Mild Scale (1-3) Last Admin: 11/12/21 22:17 Dose: 650 mg Documented by: Al Hydroxide/Mg Hydroxide (Magnesium Hydrox/Alum Hydrox 30 Ml Oral.Susp) 30 ml PO Q6H PRN PRN Reason: Heartburn/Nausea Cyanocobalamin (Cyanocobalamin (Vitamin B-12) 1,000 Mcg Tablet) 1,000 mcg PO DAILY ON LICENSE OF [facility] Last Admin: 11/13/21 08:40 Dose: 1,000 mcg Documented by: Diazepam (Diazepam 5 Mg Tablet) 10 mg PO BEDTIME ON LICENSE OF [facility] Last Admin: 11/12/21 22:15 Dose: 10 mg Documented by: Diazepam (Diazepam 5 Mg Tablet) 5 mg PO BID@0800,1300 ON LICENSE OF [facility] Last Admin: 11/13/21 14:00 Dose: 5 mg Documented by: Fluoxetine HCl (Fluoxetine Hcl 20 Mg Capsule) 60 mg PO DAILY ON LICENSE OF [facility] Last Admin: 11/13/21 08:40 Dose: 60 mg Documented by: Gabapentin (Gabapentin 400 Mg Capsule) 400 mg PO TID ON LICENSE OF [facility] Last Admin: 11/13/21 14:03 Dose: 400 mg Documented by: Hydroxyzine HCl (Hydroxyzine Hcl 25 Mg Tablet) 25 mg PO BEDTIME PRN PRN Reason: Anxiety Lorazepam (Lorazepam 1 Mg Tablet) 1 mg PO TID PRN PRN Reason: Anxiety Last Admin: 11/13/21 09:03 Dose: 1 mg Documented by: Magnesium Hydroxide (Milk Of Magnesia 30 Ml Oral.Susp) 30 ml PO DAILY PRN PRN Reason: Constipation Methylphenidate HCl (Methylphenidate Hcl 10 Mg Tablet) 20 mg PO TID@0800,1300,1600 ON LICENSE OF [facility] Last Admin: 11/13/21 14:03 Dose: 20 mg Documented by: Pharmacy Consult (Consult Rx Perform Med Rec) 1 each MISCELLANE ONCE PRN PRN Reason: Consult order Propranolol HCl (Propranolol Hcl 20 Mg Tablet) 20 mg PO DAILY PRN; Protocol PRN Reason: Anxiety Propranolol HCl (Propranolol Hcl 20 Mg Tablet) 20 mg PO TID ON LICENSE OF [facility]; Protocol Last Admin: 11/13/21 14:00 Dose: 20 mg Documented by: Quetiapine Fumarate (Quetiapine Fumarate 100 Mg Tablet) 100 mg PO BEDTIME ON LICENSE OF [facility] Last Admin: 11/12/21 22:16 Dose: 100 mg Documented by: Quetiapine Fumarate (Quetiapine Fumarate 25 Mg Tablet) 25 mg PO TID@0800,1300,1700 ON LICENSE OF [facility] Last Admin: 11/13/21 14:00 Dose: 25 mg Documented by: Allergies Allergies Allergy/AdvReac Type Severity Reaction Status Date / Time ampicillin [AMPICILLIN] Allergy Unknown ERYTHEMA Verified 11/08/21 18:13 NODOSUM (LEG SWELLING) droperidol [From INAPSINE] Allergy Unknown SEIZURES Verified 11/08/21 18:13 oxycodone [From PERCOCET] Allergy Unknown DIFFICULTY Verified 11/08/21 18:13 BREATHING trazodone [TRAZODONE] Allergy Unknown UNKNOWN Verified 11/08/21 18:13 erythromycin base AdvReac Unknown STOMACH Verified 11/08/21 18:13 [ERYTHROMYCIN BASE] UPSET Fish Containing Products AdvReac Unknown NAUSEA Verified 11/08/21 18:13 Erythromycin Allergy Unknown Unknown Uncoded 11/08/21 18:13 Inapsine Allergy Unknown Unknown Uncoded 11/08/21 18:13 Assessment & Plan Assessment & Plan (1) Bipolar 1 disorder: Status: Acute Code(s): F31.9 - Bipolar disorder, unspecified (2) Borderline personality disorder: Status: Acute Code(s): F60.3 - Borderline personality disorder (3) OCD (obsessive compulsive disorder): Status: Acute Code(s): F42.9 - Obsessive-compulsive disorder, unspecified (4) OCD (obsessive compulsive disorder): Status: Acute Code(s): F42.9 - Obsessive-compulsive disorder, unspecified (5) PTSD (post-traumatic stress disorder): Status: Acute Code(s): F43.10 - Post-traumatic stress disorder, unspecified (6) Laceration of wrist, left: Status: Acute Code(s): S61.512A - Laceration without foreign body of left wrist, initial encounter Assessment and Plan: middle-aged female with a long history of borderline personality disorder, bipolar disorder, OCD, PTSD and self-harming behavior with several admissions into the hospital for self harming and suicidal ideation. The patient was admitted into the facility due to an episode of impulsive self-harm in, by cutting herself with a knife on her wrist. At this moment, the trigger is not clear. Plan 1. Continue same medications. T/C mood stabilizer, such as VPA. 2. Contact Dr. Jaeger to gather more collateral information. 3. Reassessment with results I spent minutes with the patient and/or on the patient floor today, greater than?50% of which was spent counseling/coordinating care. Reason for contiued inpatient stay Substantial Risk for: harm to self, inability to function, rapid decompensation and med/psych decompensation
[2021-11-13 18:00] VITALS: BP 149/79; PULSE 63; RESP 16; TEMP 36.3; O2SAT 96
[2021-11-13] MEDS: Acetaminophen 325 MG TABLET 650 MG PO (20:56)
[2021-11-13] MEDS: QUEtiapine Fumarate 100 MG TABLET PO (22:28)
[2021-11-13] MEDS: diazePAM 5 MG TABLET 10 MG PO (22:28)
[2021-11-14 06:00] VITALS: BP 141/63; PULSE 64; RESP 16; TEMP 36.1; O2SAT 94
[2021-11-14] MEDS: Propranolol HCL 20 MG TABLET PO ×2 (08:27→20:16)
[2021-11-14] MEDS: diazePAM 5 MG TABLET PO ×2 (08:28→14:08)
[2021-11-14] MEDS: Cyanocobalamin (Vitamin B-12) 1,000 MCG TABLET 1000 MCG PO (08:30)
[2021-11-14] MEDS: Gabapentin 400 MG CAPSULE PO ×3 (08:30→22:08)
[2021-11-14] MEDS: QUEtiapine Fumarate 25 MG TABLET PO ×3 (08:30→16:42)
[2021-11-14] MEDS: Methylphenidate HCl 10 MG TABLET 20 MG PO ×3 (08:32→16:42)
[2021-11-14] MEDS: FLUoxetine HCl 20 MG CAPSULE 60 MG PO (10:04)
--- NOTE | 2021-11-14 12:56 | P.PNPSI_ITS ---
Subjective Subjective Date of Service: 11/14/21 Reason For Visit: depression,suicidal ideation Subjective Notes: Conditional Voluntary Interim History: The staff reported that yesterday, the patient had a consult with her neurologist and apparently she doesn't have short term memory or early symptoms of dementia. Last night, she was angry since a peer was very loud and she was irritated. On interview, we discussed her treatment options for mood lability. She a damantly denies depression or suicidal thoughts but she impulsively cut herself with a knife out of anger. We discussed options and she agreed to add Depakote as a mood stabilizer. Mental Status Exam Mental Status Exam Patient Appearance: Well Grooomed Patient Orientation: Person Level of Consciousness: Awake Patient Behavior: Dependent and Cooperative Mood Description: Constricted Affect Description: Anxious Patient Cognition Impaired: No Ability to Follow Directions: Good Speech Pattern: Clear Hallucinations: None Delusions: Not Present Thought Process: Linear Thought Content: positive for Goal Oriented and positive for Perseveration Judgement: Fair Diagnostics Vital Signs (24Hr): Vital Signs - 24 hr 11/13/21 18:00 11/14/21 06:00 Temperature 97.3 F 97 F Pulse Rate 63 64 Respiratory Rate 16 16 Blood Pressure 149/79 H 141/63 H Pulse Oximetry 96 94 BMI result Body Mass Index 36.8 Labs Results: 11/10/21 09:44 11/10/21 09:44 Medications Medications Current Medications Acetaminophen (Acetaminophen 325 Mg Tablet) 650 mg PO Q6H PRN PRN Reason: Headache/Pain Mild Scale (1-3) Last Admin: 11/13/21 20:56 Dose: 650 mg Documented by: Al Hydroxide/Mg Hydroxide (Magnesium Hydrox/Alum Hydrox 30 Ml Oral.Susp) 30 ml PO Q6H PRN PRN Reason: Heartburn/Nausea Cyanocobalamin (Cyanocobalamin (Vitamin B-12) 1,000 Mcg Tablet) 1,000 mcg PO DAILY [facility] Last Admin: 11/14/21 08:30 Dose: 1,000 mcg Documented by: Diazepam (Diazepam 5 Mg Tablet) 10 mg PO BEDTIME [facility] Last Admin: 11/13/21 22:28 Dose: 10 mg Documented by: Diazepam (Diazepam 5 Mg Tablet) 5 mg PO BID@0800,1300 [facility] Last Admin: 11/14/21 08:28 Dose: 5 mg Documented by: Fluoxetine HCl (Fluoxetine Hcl 20 Mg Capsule) 60 mg PO DAILY [facility] Last Admin: 11/14/21 10:04 Dose: 60 mg Documented by: Gabapentin (Gabapentin 400 Mg Capsule) 400 mg PO TID [facility] Last Admin: 11/14/21 08:30 Dose: 400 mg Documented by: Hydroxyzine HCl (Hydroxyzine Hcl 25 Mg Tablet) 25 mg PO BEDTIME PRN PRN Reason: Anxiety Magnesium Hydroxide (Milk Of Magnesia 30 Ml Oral.Susp) 30 ml PO DAILY PRN PRN Reason: Constipation Methylphenidate HCl (Methylphenidate Hcl 10 Mg Tablet) 20 mg PO TID@080 0,1300,1600 [facility] Last Admin: 11/14/21 08:32 Dose: 20 mg Documented by: Pharmacy Consult (Consult Rx Perform Med Rec) 1 each MISCELLANE ONCE PRN PRN Reason: Consult order Propranolol HCl (Propranolol Hcl 20 Mg Tablet) 20 mg PO DAILY PRN; Protocol PRN Reason: Anxiety Propranolol HCl (Propranolol Hcl 20 Mg Tablet) 20 mg PO TID [facility]; Protocol Last Admin: 11/14/21 08:27 Dose: 20 mg Documented by: Quetiapine Fumarate (Quetiapine Fumarate 100 Mg Tablet) 100 mg PO BEDTIME [facility] Last Admin: 11/13/21 22:28 Dose: 100 mg Documented by: Quetiapine Fumarate (Quetiapine Fumarate 25 Mg Tablet) 25 mg PO TID@0800,1300,1700 [facility] Last Admin: 11/14/21 08:30 Dose: 25 mg Documented by: Allergies Allergies Allergy/AdvReac Type Severity Reaction Status Date / Time ampicillin [AMPICILLIN] Allergy Unknown ERYTHEMA Verified 11/08/21 18:13 NODOSUM (LEG SWELLING) droperidol [From INAPSINE] Allergy Unknown SEIZURES Verified 11/08/21 18:13 oxycodone [From PERCOCET] Allergy Unknown DIFFICULTY Verified 11/08/21 18:13 BREATHING trazodone [TRAZODONE] Allergy Unknown UNKNOWN Verified 11/08/21 18:13 erythromycin base AdvReac Unknown STOMACH Verified 11/08/21 18:13 [ERYTHROMYCIN BASE] UPSET Fish Containing Products AdvReac Unknown NAUSEA Verified 11/08/21 18:13 Erythromycin Allergy Unknown Unknown Uncoded 11/08/21 18:13 Inapsine Allergy Unknown Unknown Uncoded 11/08/21 18:13 Assessment & Plan Assessment & Plan (1) Bipolar 1 disorder: Status: Acute Code(s): F31.9 - Bipolar disorder, unspecified (2) Borderline personality disorder: Status: Acute Code(s): F60.3 - Borderline personality disorder (3) OCD (obsessive compulsive disorder): Status: Acute Code(s): F42.9 - Obsessive-compulsive disorder, unspecified (4) OCD (obsessive compulsive disorder): Status: Acute Code(s): F42.9 - Obsessive-compulsive disorder, unspecified (5) PTSD (post-traumatic stress disorder): Status: Acute Code(s): F43.10 - Post-traumatic stress disorder, unspecified (6) Laceration of wrist, left: Status: Acute Code(s): S61.512A - Laceration without foreign body of left wrist, initial encounter Assessment and Plan: middle-aged female with a long history of borderline personality disorder, bipolar disorder, OCD, PTSD and self-harming behavior with several admissions into the hospital for self harming and suicidal ideation. The patient was admitted into the facility due to an episode of impulsive self-harm in, by cutting herself with a knife on her wrist. At this moment, the trigger is not clear. Plan 1. Continue same medications. T/C mood stabilizer, such as VPA or increase Gabapentin. 2. Contact Dr. Jaeger to gather more collateral information. 3. Depakote 250 mg po tid today I spent minutes with the patient and/or on the patient floor today, greater than?50% of which was spent counseling/coordinating care. Reason for contiued inpatient stay Substantial Risk for: harm to self, inability to function, rapid decompensation and med/psych decompensation
[2021-11-14 18:00] VITALS: BP 131/65; PULSE 67; RESP 18; TEMP 36.6; O2SAT 94
[2021-11-14] MEDS: QUEtiapine Fumarate 100 MG TABLET PO (22:08)
[2021-11-14] MEDS: Divalproex Sodium 250 MG TABLET.DR PO (22:08)
[2021-11-14] MEDS: diazePAM 5 MG TABLET 10 MG PO (22:08)
[2021-11-15 08:00] VITALS: BP 145/61; PULSE 59; RESP 17; TEMP 36; O2SAT 94
[2021-11-15] MEDS: Cyanocobalamin (Vitamin B-12) 1,000 MCG TABLET 1000 MCG PO (08:37)
[2021-11-15] MEDS: QUEtiapine Fumarate 25 MG TABLET PO ×2 (08:37→14:15)
[2021-11-15] MEDS: Divalproex Sodium 250 MG TABLET.DR PO ×3 (08:37→22:21)
[2021-11-15] MEDS: Propranolol HCL 20 MG TABLET PO ×2 (08:38→14:17)
[2021-11-15] MEDS: Gabapentin 400 MG CAPSULE PO ×3 (08:38→22:22)
[2021-11-15] MEDS: diazePAM 5 MG TABLET PO ×2 (08:38→14:15)
[2021-11-15] MEDS: FLUoxetine HCl 20 MG CAPSULE 60 MG PO (08:39)
[2021-11-15] MEDS: Methylphenidate HCl 10 MG TABLET 20 MG PO ×3 (08:49→17:03)
[2021-11-15 14:22] VITALS: BP 117/57; PULSE 59
--- NOTE | 2021-11-15 16:19 | P.PNPSI_ITS ---
Subjective Subjective Date of Service: 11/15/21 Reason For Visit: depression,suicidal ideation Subjective Notes: Conditional Voluntary Interim History: The nursing staff reported that she was anxious and with attention seeking bheavior. Very labile, angry at times. Today , we had the telephone call of Dr. Jaeger and he reported that she used to have very severe depression but currently her mood disabled thymic but with very poor impulse control. We discussed options and he agreed on the plan of keeping Depakote on a very low dose to avoid weight gain. On interview, the patient had several requests such as a change in the p.r.n. of propranolol, DVT groups, etc.. Mental Status Exam Mental Status Exam Patient Appearance: Well Grooomed Patient Orientation: Person Level of Consciousness: Awake Patient Behavior: Suspicious Mood Description: Calm Affect Description: Constricted Patient Cognition Impaired: No Ability to Follow Directions: Good Speech Pattern: Clear Hallucinations: None Delusions: Not Present Thought Process: Linear Thought Content: positive for Circumstantial Judgement: Fair Diagnostics Vital Signs (24Hr): Vital Signs - 24 hr 11/14/21 18:00 11/15/21 08:00 11/15/21 14:22 Temperature 97.9 F 96.8 F Pulse Rate 67 59 59 Respiratory Rate 18 17 Blood Pressure 131/65 145/61 H 117/57 L Pulse Oximetry 94 94 BMI result Body Mass Index 36.8 Labs Results: 11/10/21 09:44 11/10/21 09:44 Medications Medications Current Medications Acetaminophen (Acetaminophen 325 Mg Tablet) 650 mg PO Q6H PRN PRN Reason: Headache/Pain Mild Scale (1-3) Last Admin: 11/13/21 20:56 Dose: 650 mg Documented by: Al Hydroxide/Mg Hydroxide (Magnesium Hydrox/Alum Hydrox 30 Ml Oral.Susp) 30 ml PO Q6H PRN PRN Reason: Heartburn/Nausea Cyanocobalamin (Cyanocobalamin (Vitamin B-12) 1,000 Mcg Tablet) 1,000 mcg PO DAILY [facility] Last Admin: 11/15/21 08:37 Dose: 1,000 mcg Documented by: Diazepam (Diazepam 5 Mg Tablet) 10 mg PO BEDTIME [facility] Last Admin: 11/14/21 22:08 Dose: 10 mg Documented by: Diazepam (Diazepam 5 Mg Tablet) 5 mg PO BID@0800,1300 [facility] Last Admin: 11/15/21 14:15 Dose: 5 mg Documented by: Divalproex Sodium (Divalproex Sodium 250 Mg Tablet.Dr) 250 mg PO TID [facility] Last Admin: 11/15/21 14:14 Dose: 250 mg Documented by: Fluoxetine HCl (Fluoxetine Hcl 20 Mg Capsule) 60 mg PO DAILY [facility] Last Admin: 11/15/21 08:39 Dose: 60 mg Documented by: Gabapentin (Gabapentin 400 Mg Capsule) 400 mg PO TID [facility] Last Admin: 11/15/21 14:14 Dose: 400 mg Documented by: Hydroxyzine HCl (Hydroxyzine Hcl 25 Mg Tablet) 25 mg PO BEDTIME PRN PRN Reason: Anxiety Lorazepam (Lorazepam 1 Mg Tablet) 1 mg PO TID PRN PRN Reason: Anxiety Magnesium Hydroxide (Milk Of Magnesia 30 Ml Oral.Susp) 30 ml PO DAILY PRN PRN Reason: Constipation Methylphenidate HCl (Methylphenidate Hcl 10 Mg Tablet) 20 mg PO TID@0800,1300,1600 [facility] Last Admin: 11/15/21 14:15 Dose: 20 mg Documented by: Pharmacy Consult (Consult Rx Perform Med Rec) 1 each MISCELLANE ONCE PRN PRN Reason: Consult order Propranolol HCl (Propranolol Hcl 20 Mg Tablet) 20 mg PO DAILY PRN; Protocol PRN Reason: Anxiety Last Admin: 11/15/21 14:17 Dose: 20 mg Documented by: Propranolol HCl (Propranolol Hcl 20 Mg Tablet) 20 mg PO TID [facility]; Protocol Last Admin: 11/15/21 15:06 Dose: Not Given Documented by: Quetiapine Fumarate (Quetiapine Fumarate 100 Mg Tablet) 100 mg PO BEDTIME [facility] Last Admin: 11/14/21 22:08 Dose: 100 mg Documented by: Quetiapine Fumarate (Quetiapine Fumarate 25 Mg Tablet) 25 mg PO TID@0800,1300,1700 [facility] Last Admin: 11/15/21 14:15 Dose: 25 mg Documented by: Allergies Allergies Allergy/AdvReac Type Severity Reaction Status Date / Time ampicillin [AMPICILLIN] Allergy Unknown ERYTHEMA Verified 11/08/21 18:13 NODOSUM (LEG SWELLING) droperidol [From INAPSINE] Allergy Unknown SEIZURES Verified 11/08/21 18:13 oxycodone [From PERCOCET] Allergy Unknown DIFFICULTY Verified 11/08/21 18:13 BREATHING trazodone [TRAZODONE] Allergy Unknown UNKNOWN Verified 11/08/21 18:13 erythromycin base AdvReac Unknown STOMACH Verified 11/08/21 18:13 [ERYTHROMYCIN BASE] UPSET Fish Containing Products AdvReac Unknown NAUSEA Verified 11/08/21 18:13 Erythromycin Allergy Unknown Unknown Uncoded 11/08/21 18:13 Inapsine Allergy Unknown Unknown Uncoded 11/08/21 18:13 Assessment & Plan Assessment & Plan (1) Bipolar 1 disorder: Status: Acute Code(s): F31.9 - Bipolar disorder, unspecified (2) Borderline personality disorder: Status: Acute Code(s): F60.3 - Borderline personality disorder (3) OCD (obsessive compulsive disorder): Status: Acute Code(s): F42.9 - Obsessive-compulsive disorder, unspecified (4) OCD (obsessive compulsive disorder): Status: Acute Code(s): F42.9 - Obsessive-compulsive disorder, unspecified (5) PTSD (post-traumatic stress disorder): Status: Acute Code(s): F43.10 - Post-traumatic stress disorder, unspecified (6) Laceration of wrist, left: Status: Acute Code(s): S61.512A - Laceration without foreign body of left wrist, initial encounter Assessment and Plan: middle-aged female with a long history of borderline personality disorder, bipolar disorder, OCD, PTSD and self-harming behavior with several admissions into the hospital for self harming and suicidal ideation. The patient was admitted into the facility due to an episode of impulsive self-harm in, by cutting herself with a knife on her wrist. At this moment, the trigger is not clear. Plan 1. Continue same medications. T/C mood stabilizer, such as VPA or increase Gabapentin. 2. Contact Dr. Jaeger to gather more collateral information. 3. Depakote 250 mg po tid today . 4. Change propranolol 20 mg p.r.n. to clonidine 0.1. I spent minutes with the patient and/or on the patient floor today, greater than?50% of which was spent counseling/coordinating care. Reason for contiued inpatient stay Substantial Risk for: inability to function, rapid decompensation and med/psych decompensation
[2021-11-15] MEDS: cloNIDine HCL 0.1 MG TABLET PO (18:25)
[2021-11-15] MEDS: Acetaminophen 325 MG TABLET 650 MG PO (20:17)
[2021-11-15 22:18] VITALS: BP 99/56; PULSE 56; RESP 17; TEMP 36.1; O2SAT 95
[2021-11-15] MEDS: diazePAM 5 MG TABLET 10 MG PO (22:21)
[2021-11-15] MEDS: QUEtiapine Fumarate 100 MG TABLET PO (22:21)
[2021-11-16 06:00] VITALS: BP 110/57; PULSE 61; RESP 16; TEMP 36.2; O2SAT 94
[2021-11-16 07:00] VITALS: BMI 36.5
[2021-11-16] MEDS: Cyanocobalamin (Vitamin B-12) 1,000 MCG TABLET 1000 MCG PO (08:37)
[2021-11-16] MEDS: Divalproex Sodium 250 MG TABLET.DR PO ×3 (08:37→21:48)
[2021-11-16] MEDS: FLUoxetine HCl 20 MG CAPSULE 60 MG PO (08:38)
[2021-11-16] MEDS: diazePAM 5 MG TABLET PO ×2 (08:38→14:21)
[2021-11-16] MEDS: Gabapentin 400 MG CAPSULE PO ×3 (08:38→21:48)
[2021-11-16] MEDS: Propranolol HCL 20 MG TABLET PO ×4 (08:38→22:02)
[2021-11-16] MEDS: QUEtiapine Fumarate 25 MG TABLET PO ×2 (08:38→14:21)
[2021-11-16] MEDS: Methylphenidate HCl 10 MG TABLET 20 MG PO ×3 (08:43→17:10)
--- NOTE | 2021-11-16 15:55 | HO.PSYCHPN ---
Subjective Subjective Date of Service: 11/16/21 Reason For Visit: depression,suicidal ideation Subjective Notes: Conditional Voluntary Interim History: The nursing staff reports that the patient stays in her room most of the time, she goes out for meals but she has not participating groups. On interview the patient reports that she is doing fine no self-harming ideas and she wants to be discharged tomorrow. She reported that at home she takes propranolol 4 times a day. Mental Status Exam Mental Status Exam Patient Appearance: Well Grooomed Patient Orientation: Person Level of Consciousness: Awake Patient Behavior: Cooperative Mood Description: Depressed Affect Description: Constricted Patient Cognition Impaired: No Ability to Follow Directions: Good Speech Pattern: Clear Memory Description: Intact Hallucinations: None Delusions: Not Present Thought Process: Linear Thought Content: positive for Circumstantial Judgement: Fair Diagnostics Vital Signs (24Hr): Vital Signs - 24 hr 11/15/21 22:18 11/16/21 06:00 Temperature 96.9 F 97.1 F Pulse Rate 56 61 Respiratory Rate 17 16 Blood Pressure 99/56 L 110/57 L Pulse Oximetry 95 94 BMI result Body Mass Index 36.5 Labs Results: 11/10/21 09:44 11/10/21 09:44 Medications Medications Current Medications Acetaminophen (Acetaminophen 325 Mg Tablet) 650 mg PO Q6H PRN PRN Reason: Headache/Pain Mild Scale (1-3) Last Admin: 11/15/21 20:17 Dose: 650 mg Documented by: Al Hydroxide/Mg Hydroxide (Magnesium Hydrox/Alum Hydrox 30 Ml Oral.Susp) 30 ml PO Q6H PRN PRN Reason: Heartburn/Nausea Clonidine HCl (Clonidine Hcl 0.1 Mg Tablet) 0.1 mg PO DAILY PRN; Protocol PRN Reason: anxiety Last Admin: 11/15/21 18:25 Dose: 0.1 mg Documented by: Cyanocobalamin (Cyanocobalamin (Vitamin B-12) 1,000 Mcg Tablet) 1,000 mcg PO DAILY COUNTS INCLUDE 234 BEDS AT THE [facility] Last Admin: 11/16/21 08:37 Dose: 1,000 mcg Documented by: Diazepam (Diazepam 5 Mg Tablet) 10 mg PO BEDTIME COUNTS INCLUDE 234 BEDS AT THE [facility] Last Admin: 11/15/21 22:21 Dose: 10 mg Documented by: Diazepam (Diazepam 5 Mg Tablet) 5 mg PO BID@0800,1300 COUNTS INCLUDE 234 BEDS AT THE [facility] Last Admin: 11/16/21 14:21 Dose: 5 mg Documented by: Divalproex Sodium (Divalproex Sodium 250 Mg Tablet.Dr) 250 mg PO TID COUNTS INCLUDE 234 BEDS AT THE [facility] Last Admin: 11/16/21 14:21 Dose: 250 mg Documented by: Fluoxetine HCl (Fluoxetine Hcl 20 Mg Capsule) 60 mg PO DAILY COUNTS INCLUDE 234 BEDS AT THE [facility] Last Admin: 11/16/21 08:38 Dose: 60 mg Documented by: Gabapentin (Gabapentin 400 Mg Capsule) 400 mg PO TID COUNTS INCLUDE 234 BEDS AT THE [facility] Last Admin: 11/16/21 14:21 Dose: 400 mg Documented by: Hydroxyzine HCl (Hydroxyzine Hcl 25 Mg Tablet) 25 mg PO BEDTIME PRN PRN Reason: Anxiety Lorazepam (Lorazepam 1 Mg Tablet) 1 mg PO TID PRN PRN Reason: Anxiety Magnesium Hydroxide (Milk Of Magnesia 30 Ml Oral.Susp) 30 ml PO DAILY PRN PRN Reason: Constipation Methylphenidate HCl (Methylphenidate Hcl 10 Mg Tablet) 20 mg PO TID@0800,1300,1600 COUNTS INCLUDE 234 BEDS AT THE [facility] Last Admin: 11/16/21 14:21 Dose: 20 mg Documented by: Pharmacy Consult (Consult Rx Perform Med Rec) 1 each MISCELLANE ONCE PRN PRN Reason: Consult order Propranolol HCl (Propranolol Hcl 20 Mg Tablet) 20 mg PO TID COUNTS INCLUDE 234 BEDS AT THE [facility]; Protocol Last Admin: 11/16/21 14:20 Dose: 20 mg Documented by: Quetiapine Fumarate (Quetiapine Fumarate 100 Mg Tablet) 100 mg PO BEDTIME COUNTS INCLUDE 234 BEDS AT THE [facility] Last Admin: 11/15/21 22:21 Dose: 100 mg Documented by: Quetiapine Fumarate (Quetiapine Fumarate 25 Mg Tablet) 25 mg PO TID@0800,1300,1700 COUNTS INCLUDE 234 BEDS AT THE [facility] Last Admin: 11/16/21 14:21 Dose: 25 mg Documented by: Allergies Allergies Allergy/AdvReac Type Severity Reaction Status Date / Time ampicillin [AMPICILLIN] Allergy Unknown ERYTHEMA Verified 11/08/21 18:13 NODOSUM (LEG SWELLING) droperidol [From INAPSINE] Allergy Unknown SEIZURES Verified 11/08/21 18:13 oxycodone [From PERCOCET] Allergy Unknown DIFFICULTY Verified 11/08/21 18:13 BREATHING trazodone [TRAZODONE] Allergy Unknown UNKNOWN Verified 11/08/21 18:13 erythromycin base AdvReac Unknown STOMACH Verified 11/08/21 18:13 [ERYTHROMYCIN BASE] UPSET Fish Containing Products AdvReac Unknown NAUSEA Verified 11/08/21 18:13 Erythromycin Allergy Unknown Unknown Uncoded 11/08/21 18:13 Inapsine Allergy Unknown Unknown Uncoded 11/08/21 18:13 Assessment & Plan Assessment & Plan (1) Bipolar 1 disorder: Status: Acute Code(s): F31.9 - Bipolar disorder, unspecified (2) Borderline personality disorder: Status: Acute Code(s): F60.3 - Borderline personality disorder (3) OCD (obsessive compulsive disorder): Status: Acute Code(s): F42.9 - Obsessive-compulsive disorder, unspecified (4) OCD (obsessive compulsive disorder): Status: Acute Code(s): F42.9 - Obsessive-compulsive disorder, unspecified (5) PTSD (post-traumatic stress disorder): Status: Acute Code(s): F43.10 - Post-traumatic stress disorder, unspecified (6) Laceration of wrist, left: Status: Acute Code(s): S61.512A - Laceration without foreign body of left wrist, initial encounter Assessment and Plan: middle-aged female with a long history of borderline personality disorder, bipolar disorder, OCD, PTSD and self-harming behavior with several admissions into the hospital for self harming and suicidal ideation. The patient was admitted into the facility due to an episode of impulsive self-harm in, by cutting herself with a knife on her wrist. At this moment, the trigger is not clear. Plan 1. Continue same medications. T/C mood stabilizer, such as VPA or increase Gabapentin. 2. Contact Dr. Jaeger to gather more collateral information. 3. Depakote 250 mg po tid today . 4. Change propranolol 20 mg 4 times a day. 5. Depakote level for tomorrow morning and discharged in the afternoon. I spent minutes with the patient and/or on the patient floor today, greater than?50% of which was spent counseling/coordinating care. Reason for contiued inpatient stay Substantial Risk for: harm to self, inability to function and med/psych decompensation
[2021-11-16 18:00] VITALS: BP 122/89; PULSE 63; RESP 17; TEMP 36.4; O2SAT 93
[2021-11-16] MEDS: LORazepam 1 MG TABLET PO (19:52)
[2021-11-16] MEDS: QUEtiapine Fumarate 100 MG TABLET PO (21:48)
[2021-11-16] MEDS: diazePAM 5 MG TABLET 10 MG PO (21:49)
[2021-11-16] MEDS: Acetaminophen 325 MG TABLET 650 MG PO (21:56)
[2021-11-17 06:00] VITALS: BP 112/60; PULSE 60; RESP 16; TEMP 36; O2SAT 97
[2021-11-17 07:26] LABS: Valproate 64.9 mcg/mL (50.0-100.0)
[2021-11-17] MEDS: Methylphenidate HCl 10 MG TABLET 20 MG PO ×2 (08:18→14:20)
[2021-11-17] MEDS: diazePAM 5 MG TABLET PO ×2 (08:18→14:20)
[2021-11-17] MEDS: FLUoxetine HCl 20 MG CAPSULE 60 MG PO (08:18)
[2021-11-17] MEDS: Gabapentin 400 MG CAPSULE PO ×2 (08:18→14:20)
[2021-11-17] MEDS: Cyanocobalamin (Vitamin B-12) 1,000 MCG TABLET 1000 MCG PO (08:18)
[2021-11-17] MEDS: Propranolol HCL 20 MG TABLET PO ×2 (08:19→14:20)
[2021-11-17] MEDS: Divalproex Sodium 250 MG TABLET.DR PO ×2 (08:19→14:20)
[2021-11-17] MEDS: QUEtiapine Fumarate 25 MG TABLET PO ×2 (08:19→14:20)
--- NOTE | 2021-11-17 11:27 | PM.PSYDC ---
DS: Providers Provider Date of Service: 11/17/21 Date of admission: 11/10/21 11:38 Primary care physician: Unknown Physician Consults: 11/09/21 06:56 Consult to Care Team Stat Comment: Reason for consultation: reasses Has provider been notified: Yes Attending physician on discharge: Maynor Helms DS: Diagnosis Discharge Diagnosis (1) Bipolar 1 disorder: Status: Acute (2) Borderline personality disorder: Status: Acute (3) OCD (obsessive compulsive disorder): Status: Acute (4) OCD (obsessive compulsive disorder): Status: Acute (5) PTSD (post-traumatic stress disorder): Status: Acute (6) Laceration of wrist, left: Status: Acute DS: Medications Discharge Medications Home Medications: Home Medications Medication Instructions Recorded Confirmed cyanocobalamin (vitamin B-12) 1 tab PO DAILY 12/14/20 11/08/21 1,000 mcg tablet methylphenidate HCl 20 mg tablet 1 tab PO TID@0800,1200,1600 12/14/20 11/08/21 diazepam 10 mg tablet 10 mg PO BEDTIME 11/08/21 11/09/21 diazepam 5 mg tablet 5 mg PO BID 11/08/21 11/08/21 fluoxetine 20 mg capsule 3 cap PO QAM 11/08/21 11/08/21 gabapentin 400 mg capsule 1 cap PO TID 11/08/21 11/08/21 lorazepam 1 mg tablet 1 tab PO TID PRN 11/08/21 11/08/21 propranolol 20 mg tablet 1 tab PO TID 11/08/21 11/08/21 propranolol 20 mg tablet 20 mg PO DAILY PRN 11/08/21 11/08/21 quetiapine 100 mg tablet 100 mg PO BEDTIME 11/08/21 11/09/21 quetiapine 25 mg tablet 1 tab PO BID 11/08/21 11/08/21 Mental Status Exam Mental Status Exam Patient Appearance: Well Grooomed Patient Orientation: Person Level of Consciousness: Awake Patient Behavior: Appropriate Mood Description: Calm Affect Description: Constricted Patient Cognition Impaired: No Ability to Follow Directions: Good Speech Pattern: Clear Memory Description: Intact Hallucinations: None Delusions: Not Present Thought Process: Intact Thought Content: positive for Circumstantial Judgement: Fair Data Data Completed and Pending Completed studies during hospitalization [Text1]: 11/17/21 06:49 Valproic Acid 64.9 DS: Summary Hospital Course Hospital Course: The patient was initially admitted after she cut herself with a gerald-knife due to her impulsiveness. Please see HPI on the admission note for further details. The patient is very well known in this facility due to her previous admissions into the hospital for self-harming behavior, mood lability and suicidality. On admission, the patient was started on her regular medications without side effects. On That initialassessment, the patient adamantly denied depression or navya. She explained that out of the blue, due to her frustration for her inability to download some online forearms, she got very angry and without any thought she decided to cut herself. She was rushing to the emergency room and transferring to this facility for psychiatric stabilization after stitches were placed of her wrist. We contact Dr. Jaeger and we discussed his case at length. In the unit, the patient have depressive or manic symptoms, there were no evidence of navya or psychosis. We review her medications and she agreed to add Depakote to target impulsivity. The patient is fully aware that she can gain weight with higher doses of Depakote. Since there were no safety concerns discharge planning was discussed. Her Depakote level was in the therapeutic dose with 250 mg p.o. t.i.d.. Status at Discharge Cognitive/behavioral status at discharge: [place] test , at baseline Functional status at discharge: independent ambulation Overall status at discharge: patient is back to baseline Time Spent with Patient Time attestation: Total time spent providing and/or coordinating discharge services: Time spent: Less than 30 minutes Discharge Plan Discharge Patient Disposition: Home, Self-Care Discharge Diagnosis: borderline personality disorder. Bipolar type 1 Referrals: Dr. Mario Jaeger [Other] - 11/27/21 2:00 pm (Next appointment scheduled for 11/27/21 @ 2 PM IN-OFFICE) DR. Luisana Art [Other] - 1 Week (Next appointment scheduled for 11/22/21 @ 3 PM telehealth) Dr. Ildefonso Salinas [Other] - 1 Week (Next appointment scheduled for December,12/22/21 @ 1:45 PM IN-OFFICE visit.) [facility] [Other] - 11/23/21 11:00 am (DANITZA called and spoke with Minh Buckley rereferral to DBT program. He reported Christie would have to call him directly to see if she meets criteria.) [facility] [Other] - 1 Week (Walk in if no call back for appt within a week with PCP.) Physician,Unknown J [Primary Care Provider] - 1 Week (PCP Dr. Sonny Parker [phone] [address] [place] [address]) Discharge Medications: New divalproex 250 mg Tablet,Delayed Release (Dr/Ec) 250 mg PO TID 30 Days Qty: 90 RF: 0 lorazepam 1 mg Tablet 1 mg PO TID PRN (Reason: Anxiety) 30 Days Qty: 90 RF: 0 propranolol 20 mg Tablet 20 mg PO QID 30 Days Qty: 120 RF: 0 Continued cyanocobalamin (vitamin B-12) 1,000 mcg tablet 1 tab PO DAILY RF: 0 quetiapine 25 mg tablet 1 tab PO BID 30 Days Qty: 60 RF: 0 methylphenidate HCl 20 mg tablet 1 tab PO TID@0800,1200,1600 30 Days Qty: 90 RF: 0 lorazepam 1 mg tablet 1 tab PO TID PRN (Reason: Anxiety) 30 Days Qty: 90 RF: 0 diazepam 10 mg tablet 10 mg PO BEDTIME 30 Days Qty: 30 RF: 0 fluoxetine 20 mg capsule 3 cap PO QAM 30 Days Qty: 90 RF: 0 Changed gabapentin 400 mg capsule 1 cap PO TID 30 Days Qty: 90 RF: 0 quetiapine 100 mg tablet 100 mg PO BEDTIME 30 Days Qty: 30 RF: 0 diazepam 5 mg tablet 5 mg PO BID 30 Days Qty: 60 RF: 0 Discontinued propranolol 20 mg tablet 1 tab PO TID RF: 0 propranolol 20 mg Tablet 20 mg PO DAILY PRN (Reason: Anxiety) RF: 0 Discharge Orders: Discharge Order (Routine); Ordered 11/17/21 Ordered By: Maynor Helms Diet: advance to usual diet Activity on Discharge: As tolerated Stand Alone Forms: Patient Portal Discharge page Care Plan Goals: care plan goals achieved in this unit Health Concerns: continue follow-up with primary care physician Plan of Treatment: continue treatment with Dr. Jaeger as an outpatient Assessment: middle-aged female with a long history of bipolar disorder, borderline personality disorder, OCD, PTSD and other comorbidities admitted for self-harming behavior. At this moment the patient is stable with no safety concerns ready to be continue as an outpatient
--- NOTE | 2021-11-17 14:47 | PC.NURSE ---
Pt reports she feels safe with discharge plan, paperwork reviewed with patient. Pt belongings returned to the pt, pt to be discharged at 1500 today.
== END 2021-11-17 15:00 | disposition home or self-care (01) | DRG 885 ==
LOC: HO.ED 11-10 11:42 → HO.PGERI 11-10 11:47
PROVIDERS: Nurse Practitioner Family; Admitting Provider Psychiatry & Neurology Psychiatry; Emergency Provider Emergency Medicine Emergency Medical Services; Visit Provider Psychiatry & Neurology Psychiatry
DX: F31.9 Bipolar disorder, unspecified (principal); R45.851 Suicidal ideations; F60.3 Borderline personality disorder; F42.9 Obsessive-compulsive disorder, unspecified; F43.10 Post-traumatic stress disorder, unspecified; S61.512A Laceration without foreign body of left wrist, initial encounter; X78.1XXA Intentional self-harm by knife, initial encounter; Y92.009 Unspecified place in unspecified non-institutional (private) residence as the place of occurrence of the external cause; Z20.822 Contact with and (suspected) exposure to COVID-19; Z79.899 Other long term (current) drug therapy
CPT/HCPCS: 36415; 80048; 80076; 80164; 80307; 85025; 87635; 90715; 93005; 97161; 99285

== ENCOUNTER 2021-12-18 13:15 | Inpatient (IN) | payer MEDICARE, SELFPAY ==
--- NOTE | 2021-12-18 | ECG_ITS ---
Test Reason : qtc check Blood Pressure : / mmHG Vent. Rate : 048 BPM Atrial Rate : 048 BPM P-R Int : 160 ms QRS Dur : 094 ms QT Int : 446 ms P-R-T Axes : 044 010 024 degrees QTc Int : 398 ms Sinus bradycardia Nonspecific ST abnormality Abnormal ECG When compared with ECG of 10-NOV-2021 09:20, No significant change was found Referred By: Maynor Helms Electronically Signed By:TRA MENDEZ MD
[2021-12-18 14:16] LABS: COVID-19 Test Negative (Negative); IDNOW Serial# 9DD0AD1C
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
--- NOTE | 2021-12-18 16:05 | PM.EVENT ---
Event Note Date of Service: 12/18/21 Event Note: went to see the patient , psych is taking to patient , she just came from home , her chart is also not prepared yet , will revisit , once she ready
[2021-12-18 18:00] VITALS: BP 112/57; PULSE 56; TEMP 36.2; O2SAT 98
[2021-12-18] MEDS: diazePAM 5 MG TABLET 10 MG PO (22:21)
[2021-12-18] MEDS: QUEtiapine Fumarate 100 MG TABLET PO (22:21)
[2021-12-18] MEDS: Propranolol HCL 20 MG TABLET PO (22:21)
[2021-12-18] MEDS: Gabapentin 400 MG CAPSULE PO (22:22)
[2021-12-18] MEDS: Divalproex Sodium 250 MG TABLET.DR PO (22:22)
--- NOTE | 2021-12-18 22:49 | PC.NURSE ---
Pt admited to floor at 1405, as a direct admit. The pt participated in admission assessment, declined to sign release paperwork at this time, stated she will do in the AM. The pt reports she has been experiencing increased depression and anxiety over the last couple of weeks, leading to feelings of anger. The pt reports she was angry when her cat refused to climb up on her lap, and the pt stated I felt like kicking her, I didn't kick her but I got angry enough to . The pt stated That told me I needed help, that things were getting bad.
[2021-12-19] MEDS: Acetaminophen 325 MG TABLET 650 MG PO (00:57)
[2021-12-19 06:00] VITALS: BP 123/58; PULSE 51; RESP 16; TEMP 35.4; O2SAT 97
[2021-12-19 07:43] LABS: MANUAL DIFF FLAG NO
[2021-12-19 07:50] LABS: Basophils Percent Auto 0.5 % (0-2); Eosinophils Absolute Auto 0.3 X10*3/uL (0.0-0.4); Eosinophils Percent Auto 4.1 % (0-4); Hematocrit 41.5 % (37.0-47.0); Hemoglobin 13.2 g/dl (12.0-16.0); Imm Gran Abs Auto 0.02 X10*3/uL (0.00-0.03); Imm Gran Pct Auto 0.3 % (0.0-0.4); Lymphocytes Percent Auto 31.1 % (20-40); Mean Corpuscular HGB Conc 31.8 g/dl (31.0-35.0); Mean Corpuscular Hemoglobin 30.8 pg (27.0-33.0); Mean Platelet Volume 10.3 fL (9.4-12.3); Monocytes Absolute Auto 0.6 X10*3/uL (0.1-1.2); Monocytes Percent Auto 8.5 % (2-11); Neutrophils Absolute Auto 3.6 x10*3/uL (2.0-8.3); Neutrophils Percent Auto 55.5 % (45-73); Platelet Count 132 X10*3/uL (160-400); Red Blood Count 4.28 X10*6/uL (4.20-5.50); Red Cell Distribution Width 14.9 % (11.0-16.0); White Blood Count 6.6 X10*3/uL (4.8-10.8)
[2021-12-19 08:04] LABS: Alanine Aminotransferase 9 U/L (0-31); Albumin Level 3.6 g/dL (3.5-5.0); Alkaline Phosphatase 53 U/L (39-117); Anion Gap 10 (12-20); Aspartate Amino Transferase 15 U/L (5-31); Bilirubin Direct 0.2 mg/dL (0.0-0.5); Bilirubin Total 0.4 mg/dL (0.0-1.0); Blood Urea Nitrogen 16 mg/dL (9-16); Calcium 8.9 mg/dL (8.4-10.2); Carbon Dioxide 35 mmol/L (22-29); Chloride 100 mmol/L (96-108); Cholesterol 190 mg/dL; Estimated Glomerular Filt Rate > 60; Glucose Random 86 mg/dL (60-115); HDL Cholesterol 54 mg/dL; LDL Cholesterol Calculated 117 mg/dl; Potassium 4.3 mmol/L (3.3-5.1); Sodium 141 mmol/L (135-145); Total Protein 6.3 g/dL (6.5-8.0); Triglycerides 98 mg/dL
[2021-12-19] MEDS: Methylphenidate HCl 10 MG TABLET 20 MG PO ×3 (08:14→16:32)
[2021-12-19] MEDS: Divalproex Sodium 250 MG TABLET.DR PO (08:14)
[2021-12-19] MEDS: Propranolol HCL 20 MG TABLET PO ×3 (08:14→22:34)
[2021-12-19] MEDS: QUEtiapine Fumarate 25 MG TABLET PO ×2 (08:14→14:01)
[2021-12-19] MEDS: Cyanocobalamin (Vitamin B-12) 1,000 MCG TABLET 1000 MCG PO (08:14)
[2021-12-19] MEDS: Gabapentin 400 MG CAPSULE PO ×3 (08:14→22:41)
[2021-12-19] MEDS: diazePAM 5 MG TABLET PO ×2 (08:15→14:01)
[2021-12-19] MEDS: FLUoxetine HCl 20 MG CAPSULE 60 MG PO (08:15)
[2021-12-19 08:18] LABS: Estimated Average Glucose 105 mg/dL; Hemoglobin A1c % 5.3 %
[2021-12-19 08:24] LABS: Thyroid Stimulating Hormone 3.36 uIU/mL (0.32-4.0); Valproate 51.4 mcg/mL (50.0-100.0)
[2021-12-19 13:12] LABS: Appearance Urine CLEAR; Color Urine YELLOW; Glucose Urine UA NEG (NEG); Leukocyte Esterase Urine NEG (NEG); Nitrite Urine NEG (NEG); Specific Gravity - Urine <= 1.005 (1.005-1.025); Urine Blood NEG (NEG); Urine Ketones NEG (NEG); Urine Protein NEG (NEG-TRACE)
--- NOTE | 2021-12-19 15:10 | HO.PSYCHPN ---
Subjective Subjective Date of Service: 12/19/21 Reason For Visit: Mood disorder Subjective Notes: Conditional Voluntary Interim History: the nursing staff reported that the patient was cooperative with care, compliant with treatment. On interview, we discussed with the patient her Depakote level that he was normal on the lower limit. She agreed increase Depakote up to a 1000 mg daily. Mental Status Exam Mental Status Exam Patient Appearance: Well Grooomed Patient Orientation: Person, Place and Situation Level of Consciousness: Awake Patient Behavior: Appropriate Mood Description: Depressed Affect Description: Constricted Patient Cognition Impaired: No Ability to Follow Directions: Good Speech Pattern: Clear Memory Description: Intact Hallucinations: None Delusions: Not Present Thought Process: Distracted and Linear Thought Content: positive for Circumstantial Judgement: Fair Diagnostics Vital Signs (24Hr): Vital Signs - 24 hr 12/18/21 18:00 12/19/21 06:00 Temperature 97.1 F 95.8 F L Pulse Rate 56 51 Respiratory Rate 16 Blood Pressure 112/57 L 123/58 L Pulse Oximetry 98 97 Labs Results: 12/19/21 07:26 12/19/21 07:26 Labs: Laboratory Results - last 48 hr 12/18/21 12/19/21 12/19/21 13:40 07:26 07:26 WBC 6.6 RBC 4.28 Hgb 13.2 Hct 41.5 MCV 97.0 MCH 30.8 MCHC 31.8 RDW 14.9 Plt Count 132 L MPV 10.3 Immature Gran % (Auto) 0.3 Neut % (Auto) 55.5 Lymph % (Auto) 31.1 [place] % (Auto) 8.5 Eos % (Auto) 4.1 H Baso % (Auto) 0.5 Lymph # (Auto) 2.0 [place] # (Auto) 0.6 Eos # (Auto) 0.3 Baso # (Auto) 0.0 Abs Immat Gran (auto) 0.02 Absolute Neuts (auto) 3.6 Absolute Nucleated RBC 0.000 Nucleated RBC % (auto) 0.0 Sodium 141 Potassium 4.3 Chloride 100 Carbon Dioxide 35 H Anion Gap 10 L BUN 16 Creatinine 0.90 Estim Creat Clear Calc TNP Estimated GFR > 60 Random Glucose 86 Estimat Average Glucose Hemoglobin A1c % Calcium 8.9 Total Bilirubin 0.4 Direct Bilirubin 0.2 AST 15 ALT 9 Alkaline Phosphatase 53 D Total Protein 6.3 L Albumin 3.6 Triglycerides 98 Cholesterol 190 LDL Cholesterol, Calc 117 HDL Cholesterol 54 TSH 3.36 Urine Color Urine Appearance Urine pH Ur Specific [place] Urine Protein Urine Glucose (UA) Urine Ketones Urine Blood Urine Nitrite Ur Leukocyte Esterase Valproic Acid 51.4 COVID-19 ([facility]) Negative COVID-19 Clin Com See Note 12/19/21 12/19/21 07:26 12:00 WBC RBC Hgb Hct MCV MCH MCHC RDW Plt Count MPV Immature Gran % (Auto) Neut % (Auto) Lymph % (Auto) [place] % (Auto) Eos % (Auto) Baso % (Auto) Lymph # (Auto) [place] # (Auto) Eos # (Auto) Baso # (Auto) Abs Immat Gran (auto) Absolute Neuts (auto) Absolute Nucleated RBC Nucleated RBC % (auto) Sodium Potassium Chloride Carbon Dioxide Anion Gap BUN Creatinine Estim Creat Clear Calc Estimated GFR Random Glucose Estimat Average Glucose 105 Hemoglobin A1c % 5.3 Calcium Total Bilirubin Direct Bilirubin AST ALT Alkaline Phosphatase Total Protein Albumin Triglycerides Cholesterol LDL Cholesterol, Calc HDL Cholesterol TSH Urine Color YELLOW Urine Appearance CLEAR Urine pH 6.0 Ur Specific [place] <= 1.005 Urine Protein NEG Urine Glucose (UA) NEG Urine Ketones NEG Urine Blood NEG Urine Nitrite NEG Ur Leukocyte Esterase NEG Valproic Acid COVID-19 ([facility]) COVID-19 Clin Com Medications Medications Current Medications Acetaminophen (Acetaminophen 325 Mg Tablet) 650 mg PO Q6H PRN PRN Reason: Headache/Pain Mild Scale (1-3) Last Admin: 12/19/21 00:57 Dose: 650 mg Documented by: Al Hydroxide/Mg Hydroxide (Magnesium Hydrox/Alum Hydrox 30 Ml Oral.Susp) 30 ml PO Q6H PRN PRN Reason: Heartburn/Nausea Cyanocobalamin (Cyanocobalamin (Vitamin B-12) 1,000 Mcg Tablet) 1,000 mcg PO DAILY [facility] Last Admin: 12/19/21 08:14 Dose: 1,000 mcg Documented by: Diazepam (Diazepam 5 Mg Tablet) 10 mg PO BEDTIME [facility] Last Admin: 12/18/21 22:21 Dose: 10 mg Documented by: Diazepam (Diazepam 5 Mg Tablet) 5 mg PO BID@0800,1300 [facility] Last Admin: 12/19/21 14:01 Dose: 5 mg Documented by: Divalproex Sodium (Divalproex Sodium 250 Mg Tablet.) 250 mg PO TID [facility] Last Admin: 12/19/21 08:14 Dose: 250 mg Documented by: Fluoxetine HCl (Fluoxetine Hcl 20 Mg Capsule) 60 mg PO DAILY [facility] Last Admin: 12/19/21 08:15 Dose: 60 mg Documented by: Gabapentin (Gabapentin 400 Mg Capsule) 400 mg PO TID [facility] Last Admin: 12/19/21 08:14 Dose: 400 mg Documented by: Hydroxyzine HCl (Hydroxyzine Hcl 25 Mg Tablet) 25 mg PO BEDTIME PRN PRN Reason: Anxiety Lorazepam (Lorazepam 1 Mg Tablet) 1 mg PO TID PRN PRN Reason: agitation, anxiety Magnesium Hydroxide (Milk Of Magnesia 30 Ml Oral.Susp) 30 ml PO DAILY PRN PRN Reason: Constipation Methylphenidate HCl (Methylphenidate Hcl 10 Mg Tablet) 20 mg PO TID@0800,1200,1600 [facility] Last Admin: 12/19/21 14:01 Dose: 20 mg Documented by: Propranolol HCl (Propranolol Hcl 20 Mg Tablet) 20 mg PO TID [facility]; Protocol Last Admin: 12/19/21 08:14 Dose: 20 mg Documented by: Propranolol HCl (Propranolol Hcl 20 Mg Tablet) 20 mg PO DAILY PRN; Protocol PRN Reason: anxiety Quetiapine Fumarate (Quetiapine Fumarate 100 Mg Tablet) 100 mg PO BEDTIME [facility] Last Admin: 12/18/21 22:21 Dose: 100 mg Documented by: Quetiapine Fumarate (Quetiapine Fumarate 25 Mg Tablet) 25 mg PO BID@0800,1300 [facility] Last Admin: 12/19/21 14:01 Dose: 25 mg Documented by: Allergies Allergies Allergy/AdvReac Type Severity Reaction Status Date / Time ampicillin [AMPICILLIN] Allergy Unknown ERYTHEMA Verified 11/08/21 18:13 NODOSUM (LEG SWELLING) droperidol [From INAPSINE] Allergy Unknown SEIZURES Verified 11/08/21 18:13 oxycodone [From PERCOCET] Allergy Unknown DIFFICULTY Verified 11/08/21 18:13 BREATHING trazodone [TRAZODONE] Allergy Unknown UNKNOWN Verified 11/08/21 18:13 erythromycin base AdvReac Unknown STOMACH Verified 11/08/21 18:13 [ERYTHROMYCIN BASE] UPSET Fish Containing Products AdvReac Unknown NAUSEA Verified 11/08/21 18:13 Erythromycin Allergy Unknown Unknown Uncoded 11/08/21 18:13 Inapsine Allergy Unknown Unknown Uncoded 11/08/21 18:13 Assessment & Plan Assessment & Plan (1) Borderline personality disorder: Status: Acute Code(s): F60.3 - Borderline personality disorder (2) Bipolar 1 disorder: Status: Acute Code(s): F31.9 - Bipolar disorder, unspecified Plan the patient is and a middle-aged female with a long history of bipolar disorder, borderline personality disorder, OCD and PTSD readmitted after a sudden symptoms of mood lability, dysphoria and anger, unable to contract for safety in the community. Plan 1. Continue same medications. 2. Gather collateral information, called Dr. Jaeger to get more information. 3. CBC, BMP, Depakote level and other blood work ordered for 12/22 morning. 4. Hospitalist consult for medical clearance I spent minutes with the patient and/or on the patient floor today, greater than?50% of which was spent counseling/coordinating care. Reason for contiued inpatient stay Substantial Risk for: inability to function, rapid decompensation and med/psych decompensation
[2021-12-19 20:08] VITALS: BP 119/58; PULSE 56; RESP 16; TEMP 36.6; O2SAT 95
[2021-12-19] MEDS: diazePAM 5 MG TABLET 10 MG PO (22:35)
[2021-12-19] MEDS: Divalproex Sodium 500 MG TABLET.DR PO (22:35)
[2021-12-19] MEDS: QUEtiapine Fumarate 100 MG TABLET PO (22:41)
[2021-12-20 11:00] VITALS: BP 130/60; PULSE 59; RESP 17; TEMP 35.9; O2SAT 92
[2021-12-20] MEDS: FLUoxetine HCl 20 MG CAPSULE 60 MG PO (11:16)
[2021-12-20] MEDS: Cyanocobalamin (Vitamin B-12) 1,000 MCG TABLET 1000 MCG PO (11:17)
[2021-12-20] MEDS: diazePAM 5 MG TABLET PO ×2 (11:17→14:11)
[2021-12-20] MEDS: Methylphenidate HCl 10 MG TABLET 20 MG PO ×2 (11:17→14:09)
[2021-12-20] MEDS: Gabapentin 400 MG CAPSULE PO ×3 (11:17→22:11)
[2021-12-20] MEDS: Divalproex Sodium 250 MG TABLET.DR PO ×2 (11:18→14:09)
[2021-12-20] MEDS: QUEtiapine Fumarate 25 MG TABLET PO ×2 (11:18→14:11)
[2021-12-20] MEDS: Propranolol HCL 20 MG TABLET PO ×2 (11:18→22:11)
[2021-12-20] MEDS: Metoclopramide HCl 5 MG TABLET PO (13:41)
--- NOTE | 2021-12-20 14:03 | P.PNPSI_ITS ---
Subjective Subjective Date of Service: 12/20/21 Reason For Visit: Mood disorder Subjective Notes: Conditional Voluntary Interim History: the nursing staff reported the patient has been anxious and depressed, she has been fully compliant with medication but she has neglected her personal care. She refused to change her clothes at night. On interview, the patient reported that she is feeling more depressed but we will wait a couple of days to do any medication changes on her Prozac sings is at 60 mg a day that is quite a high dose. She agreed with the plan. At this moment she denies active suicidal ideation Mental Status Exam Mental Status Exam Patient Appearance: Well Grooomed Patient Orientation: Person and Situation Level of Consciousness: Awake Patient Behavior: Appropriate and Cooperative Mood Description: Depressed Affect Description: Labile Patient Cognition Impaired: No Ability to Follow Directions: Good Speech Pattern: Clear Memory Description: Intact Hallucinations: None Delusions: Not Present Thought Process: Linear Thought Content: positive for Circumstantial Judgement: Fair Diagnostics Vital Signs (24Hr): Vital Signs - 24 hr 12/19/21 20:08 12/20/21 11:00 Temperature 97.8 F 96.6 F L Pulse Rate 56 59 Respiratory Rate 16 17 Blood Pressure 119/58 L 130/60 Pulse Oximetry 95 92 Labs Results: 12/19/21 07:26 12/19/21 07:26 Labs: Laboratory Results - last 48 hr 12/18/21 12/19/21 12/19/21 13:40 07:26 07:26 WBC 6.6 RBC 4.28 Hgb 13.2 Hct 41.5 MCV 97.0 MCH 30.8 MCHC 31.8 RDW 14.9 Plt Count 132 L MPV 10.3 Immature Gran % (Auto) 0.3 Neut % (Auto) 55.5 Lymph % (Auto) 31.1 [place] % (Auto) 8.5 Eos % (Auto) 4.1 H Baso % (Auto) 0.5 Lymph # (Auto) 2.0 [place] # (Auto) 0.6 Eos # (Auto) 0.3 Baso # (Auto) 0.0 Abs Immat Gran (auto) 0.02 Absolute Neuts (auto) 3.6 Absolute Nucleated RBC 0.000 Nucleated RBC % (auto) 0.0 Sodium 141 Potassium 4.3 Chloride 100 Carbon Dioxide 35 H Anion Gap 10 L BUN 16 Creatinine 0.90 Estim Creat Clear Calc TNP Estimated GFR > 60 Random Glucose 86 Estimat Average Glucose Hemoglobin A1c % Calcium 8.9 Total Bilirubin 0.4 Direct Bilirubin 0.2 AST 15 ALT 9 Alkaline Phosphatase 53 D Total Protein 6.3 L Albumin 3.6 Triglycerides 98 Cholesterol 190 LDL Cholesterol, Calc 117 HDL Cholesterol 54 TSH 3.36 Urine Color Urine Appearance Urine pH Ur Specific [place] Urine Protein Urine Glucose (UA) Urine Ketones Urine Blood Urine Nitrite Ur Leukocyte Esterase Valproic Acid 51.4 COVID-19 ([facility]) Negative COVID-19 Clin Com See Note 12/19/21 12/19/21 07:26 12:00 WBC RBC Hgb Hct MCV MCH MCHC RDW Plt Count MPV Immature Gran % (Auto) Neut % (Auto) Lymph % (Auto) [place] % (Auto) Eos % (Auto) Baso % (Auto) Lymph # (Auto) [place] # (Auto) Eos # (Auto) Baso # (Auto) Abs Immat Gran (auto) Absolute Neuts (auto) Absolute Nucleated RBC Nucleated RBC % (auto) Sodium Potassium Chloride Carbon Dioxide Anion Gap BUN Creatinine Estim Creat Clear Calc Estimated GFR Random Glucose Estimat Average Glucose 105 Hemoglobin A1c % 5.3 Calcium Total Bilirubin Direct Bilirubin AST ALT Alkaline Phosphatase Total Protein Albumin Triglycerides Cholesterol LDL Cholesterol, Calc HDL Cholesterol TSH Urine Color YELLOW Urine Appearance CLEAR Urine pH 6.0 Ur Specific [place] <= 1.005 Urine Protein NEG Urine Glucose (UA) NEG Urine Ketones NEG Urine Blood NEG Urine Nitrite NEG Ur Leukocyte Esterase NEG Valproic Acid COVID-19 ([facility]) COVID-19 Clin Com Medications Medications Current Medications Acetaminophen (Acetaminophen 325 Mg Tablet) 650 mg PO Q6H PRN PRN Reason: Headache/Pain Mild Scale (1-3) Last Admin: 12/19/21 00:57 Dose: 650 mg Documented by: Al Hydroxide/Mg Hydroxide (Magnesium Hydrox/Alum Hydrox 30 Ml Oral.Susp) 30 ml PO Q6H PRN PRN Reason: Heartburn/Nausea Cyanocobalamin (Cyanocobalamin (Vitamin B-12) 1,000 Mcg Tablet) 1,000 mcg PO D AILY [facility] Last Admin: 12/20/21 11:17 Dose: 1,000 mcg Documented by: Diazepam (Diazepam 5 Mg Tablet) 10 mg PO BEDTIME [facility] Last Admin: 12/19/21 22:35 Dose: 10 mg Documented by: Diazepam (Diazepam 5 Mg Tablet) 5 mg PO BID@0800,1300 [facility] Last Admin: 12/20/21 11:17 Dose: 5 mg Documented by: Divalproex Sodium (Divalproex Sodium 250 Mg Tablet.) 250 mg PO BID@0800,1500 [facility] Last Admin: 12/20/21 11:18 Dose: 250 mg Documented by: Divalproex Sodium (Divalproex Sodium 500 Mg Tablet.) 500 mg PO BEDTIME [facility] Last Admin: 12/19/21 22:35 Dose: 500 mg Documented by: Fluoxetine HCl (Fluoxetine Hcl 20 Mg Capsule) 60 mg PO DAILY [facility] Last Admin: 12/20/21 11:16 Dose: 60 mg Documented by: Gabapentin (Gabapentin 400 Mg Capsule) 400 mg PO TID [facility] Last Admin: 12/20/21 11:17 Dose: 400 mg Documented by: Hydroxyzine HCl (Hydroxyzine Hcl 25 Mg Tablet) 25 mg PO BEDTIME PRN PRN Reason: Anxiety Lorazepam (Lorazepam 1 Mg Tablet) 1 mg PO TID PRN PRN Reason: agitation, anxiety Magnesium Hydroxide (Milk Of Magnesia 30 Ml Oral.Susp) 30 ml PO DAILY PRN PRN Reason: Constipation Methylphenidate HCl (Methylphenidate Hcl 10 Mg Tablet) 20 mg PO TID@0800,1200,1600 [facility] Last Admin: 12/20/21 11:17 Dose: 20 mg Documented by: Metoclopramide HCl (Metoclopramide Hcl 5 Mg Tablet) 5 mg PO Q6H PRN PRN Reason: Nausea Last Admin: 12/20/21 13:41 Dose: 5 mg Documented by: Propranolol HCl (Propranolol Hcl 20 Mg Tablet) 20 mg PO TID [facility]; Protocol Last Admin: 12/20/21 11:18 Dose: 20 mg Documented by: Propranolol HCl (Propranolol Hcl 20 Mg Tablet) 20 mg PO DAILY PRN; Protocol PRN Reason: anxiety Quetiapine Fumarate (Quetiapine Fumarate 100 Mg Tablet) 100 mg PO BEDTIME [facility] Last Admin: 12/19/21 22:41 Dose: 100 mg Documented by: Quetiapine Fumarate (Quetiapine Fumarate 25 Mg Tablet) 25 mg PO BID@0800,1300 S Last Admin: 12/20/21 11:18 Dose: 25 mg Documented by: Allergies Allergies Allergy/AdvReac Type Severity Reaction Status Date / Time ampicillin [AMPICILLIN] Allergy Unknown ERYTHEMA Verified 11/08/21 18:13 NODOSUM (LEG SWELLING) droperidol [From INAPSINE] Allergy Unknown SEIZURES Verified 11/08/21 18:13 oxycodone [From PERCOCET] Allergy Unknown DIFFICULTY Verified 11/08/21 18:13 BREATHING trazodone [TRAZODONE] Allergy Unknown UNKNOWN Verified 11/08/21 18:13 erythromycin base AdvReac Unknown STOMACH Verified 11/08/21 18:13 [ERYTHROMYCIN BASE] UPSET Fish Containing Products AdvReac Unknown NAUSEA Verified 11/08/21 18:13 Erythromycin Allergy Unknown Unknown Uncoded 11/08/21 18:13 Inapsine Allergy Unknown Unknown Uncoded 11/08/21 18:13 Assessment & Plan Assessment & Plan (1) Borderline personality disorder: Status: Acute Code(s): F60.3 - Borderline personality disorder (2) Bipolar 1 disorder: Status: Acute Code(s): F31.9 - Bipolar disorder, unspecified Plan the patient is and a middle-aged female with a long history of bipolar disorder, borderline personality disorder, OCD and PTSD readmitted after a sudden symptoms of mood lability, dysphoria and anger, unable to contract for safety in the community. Plan 1. Continue same medications. 2. Gather collateral information, called Dr. Jaeger to get more information. 3. get Depakote level for Saturday I spent minutes with the patient and/or on the patient floor today, greater than?50% of which was spent counseling/coordinating care. Reason for contiued inpatient stay Substantial Risk for: harm to self, harm to others, inability to function, rapid decompensation and med/psych decompensation
[2021-12-20] MEDS: diazePAM 5 MG TABLET 10 MG PO (22:10)
[2021-12-20] MEDS: Divalproex Sodium 500 MG TABLET.DR PO (22:10)
[2021-12-20] MEDS: QUEtiapine Fumarate 100 MG TABLET PO (22:12)
[2021-12-20 22:22] VITALS: BP 104/56; PULSE 64; RESP 18; TEMP 36.9; O2SAT 92
[2021-12-21 09:05] VITALS: BP 117/53; PULSE 62; RESP 16; TEMP 35.8; O2SAT 95
[2021-12-21] MEDS: Methylphenidate HCl 10 MG TABLET 20 MG PO ×3 (09:20→16:14)
[2021-12-21] MEDS: Cyanocobalamin (Vitamin B-12) 1,000 MCG TABLET 1000 MCG PO (09:21)
[2021-12-21] MEDS: FLUoxetine HCl 20 MG CAPSULE 60 MG PO (09:21)
[2021-12-21] MEDS: diazePAM 5 MG TABLET PO ×2 (09:22→12:50)
[2021-12-21] MEDS: Divalproex Sodium 250 MG TABLET.DR PO ×2 (09:22→14:14)
[2021-12-21] MEDS: Gabapentin 400 MG CAPSULE PO ×3 (09:23→22:10)
[2021-12-21] MEDS: QUEtiapine Fumarate 25 MG TABLET PO ×2 (09:23→12:50)
[2021-12-21] MEDS: Propranolol HCL 20 MG TABLET PO ×3 (12:50→22:12)
--- NOTE | 2021-12-21 16:04 | HO.PSYCHPN ---
Subjective Subjective Date of Service: 12/21/21 Reason For Visit: Mood disorder Subjective Notes: Conditional Voluntary Interim History: The nursing staff reported the patient denies suicidal ideation, she is easily angry even though that she does not participate in groups she looks oriented. On interview with the dialysis social worker, she reported that she has poor impulse control and son and she has been more irritable than usual. Even though that she does not have active suicidal ideation her behavior had become unpredictable and she is scared that she can not hurt herself or others. We discussed treatment options and she agreed on the plan below. She will get a Depakote level tomorrow morning Mental Status Exam Mental Status Exam Patient Appearance: Well Grooomed Patient Orientation: Person, Place and Situation Level of Consciousness: Awake Patient Behavior: Guarded and Passive Mood Description: Depressed Affect Description: Constricted Patient Cognition Impaired: No Ability to Follow Directions: Good Speech Pattern: Clear Memory Description: Intact Hallucinations: None Delusions: Not Present Thought Content: positive for Linear Judgement: Fair Diagnostics Vital Signs (24Hr): Vital Signs - 24 hr 12/20/21 22:22 12/21/21 09:05 Temperature 98.5 F 96.5 F L Pulse Rate 64 62 Respiratory Rate 18 16 Blood Pressure 104/56 L 117/53 L Pulse Oximetry 92 95 Labs Results: 12/19/21 07:26 12/19/21 07:26 Medications Medications Current Medications Acetaminophen (Acetaminophen 325 Mg Tablet) 650 mg PO Q6H PRN PRN Reason: Headache/Pain Mild Scale (1-3) Last Admin: 12/19/21 00:57 Dose: 650 mg Documented by: Al Hydroxide/Mg Hydroxide (Magnesium Hydrox/Alum Hydrox 30 Ml Oral.Susp) 30 ml PO Q6H PRN PRN Reason: Heartburn/Nausea Cyanocobalamin (Cyanocobalamin (Vitamin B-12) 1,000 Mcg Tablet) 1,000 mcg PO DAILY [facility] Last Admin: 12/21/21 09:21 Dose: 1,000 mcg Documented by: Diazepam (Diazepam 5 Mg Tablet) 10 mg PO BEDTIME [facility] Last Admin: 12/20/21 22:10 Dose: 10 mg Documented by: Diazepam (Diazepam 5 Mg Tablet) 5 mg PO BID@0800,1300 [facility] Last Admin: 12/21/21 12:50 Dose: 5 mg Documented by: Divalproex Sodium (Divalproex Sodium 250 Mg Tablet.) 250 mg PO BID@0800,1500 [facility] Last Admin: 12/21/21 14:14 Dose: 250 mg Documented by: Divalproex Sodium (Divalproex Sodium 500 Mg Tablet.) 500 mg PO BEDTIME [facility] Last Admin: 12/20/21 22:10 Dose: 500 mg Documented by: Fluoxetine HCl (Fluoxetine Hcl 20 Mg Capsule) 60 mg PO DAILY [facility] Last Admin: 12/21/21 09:21 Dose: 60 mg Documented by: Gabapentin (Gabapentin 400 Mg Capsule) 400 mg PO TID [facility] Last Admin: 12/21/21 14:14 Dose: 400 mg Documented by: Hydroxyzine HCl (Hydroxyzine Hcl 25 Mg Tablet) 25 mg PO BEDTIME PRN PRN Reason: Anxiety Lorazepam (Lorazepam 1 Mg Tablet) 1 mg PO TID PRN PRN Reason: agitation, anxiety Magnesium Hydroxide (Milk Of Magnesia 30 Ml Oral.Susp) 30 ml PO DAILY PRN PRN Reason: Constipation Methylphenidate HCl (Methylphenidate Hcl 10 Mg Tablet) 20 mg PO TID@0800,1200,1600 [facility] Last Admin: 12/21/21 12:50 Dose: 20 mg Documented by: Metoclopramide HCl (Metoclopramide Hcl 5 Mg Tablet) 5 mg PO Q6H PRN PRN Reason: Nausea Last Admin: 12/20/21 13:41 Dose: 5 mg Documented by: Propranolol HCl (Propranolol Hcl 20 Mg Tablet) 20 mg PO QID [facility]; Protocol Last Admin: 12/21/21 12:50 Dose: 20 mg Documented by: Quetiapine Fumarate (Quetiapine Fumarate 100 Mg Tablet) 100 mg PO BEDTIME [facility] Last Admin: 12/20/21 22:12 Dose: 100 mg Documented by: Quetiapine Fumarate (Quetiapine Fumarate 25 Mg Tablet) 25 mg PO BID@0800,1300 [facility] Last Admin: 12/21/21 12:50 Dose: 25 mg Documented by: Allergies Allergies Allergy/AdvReac Type Severity Reaction Status Date / Time ampicillin [AMPICILLIN] Allergy Unknown ERYTHEMA Verified 11/08/21 18:13 NODOSUM (LEG SWELLING) droperidol [From INAPSINE] Allergy Unknown SEIZURES Verified 11/08/21 18:13 oxycodone [From PERCOCET] Allergy Unknown DIFFICULTY Verified 11/08/21 18:13 BREATHING trazodone [TRAZODONE] Allergy Unknown UNKNOWN Verified 11/08/21 18:13 erythromycin base AdvReac Unknown STOMACH Verified 11/08/21 18:13 [ERYTHROMYCIN BASE] UPSET Fish Containing Products AdvReac Unknown NAUSEA Verified 11/08/21 18:13 Erythromycin Allergy Unknown Unknown Uncoded 11/08/21 18:13 Inapsine Allergy Unknown Unknown Uncoded 11/08/21 18:13 Assessment & Plan Assessment & Plan (1) Borderline personality disorder: Status: Acute Code(s): F60.3 - Borderline personality disorder (2) Bipolar 1 disorder: Status: Acute Code(s): F31.9 - Bipolar disorder, unspecified Plan the patient is and a middle-aged female with a long history of bipolar disorder, borderline personality disorder, OCD and PTSD readmitted after a sudden symptoms of mood lability, dysphoria and anger, unable to contract for safety in the community. Plan 1. Continue same medications. 2. Gather collateral information, called Dr. Jaeger to get more information. 3. get Depakote level for Saturday I spent minutes with the patient and/or on the patient floor today, greater than?50% of which was spent counseling/coordinating care. Reason for contiued inpatient stay Substantial Risk for: harm to self, harm to others, inability to function, rapid decompensation and med/psych decompensation
[2021-12-21 20:15] VITALS: BP 117/63; PULSE 66; RESP 18; TEMP 36.4; O2SAT 95
[2021-12-21] MEDS: Divalproex Sodium 500 MG TABLET.DR PO (22:10)
[2021-12-21] MEDS: diazePAM 5 MG TABLET 10 MG PO (22:11)
[2021-12-21] MEDS: QUEtiapine Fumarate 100 MG TABLET PO (22:11)
[2021-12-22 08:57] VITALS: BP 112/54; PULSE 65; RESP 16; TEMP 36.5; O2SAT 91
[2021-12-22] MEDS: Divalproex Sodium 250 MG TABLET.DR PO ×2 (08:58→15:51)
[2021-12-22] MEDS: QUEtiapine Fumarate 25 MG TABLET PO ×2 (08:58→13:08)
[2021-12-22] MEDS: Cyanocobalamin (Vitamin B-12) 1,000 MCG TABLET 1000 MCG PO (08:58)
[2021-12-22] MEDS: FLUoxetine HCl 20 MG CAPSULE 60 MG PO (08:59)
[2021-12-22] MEDS: Gabapentin 400 MG CAPSULE PO ×3 (08:59→22:09)
[2021-12-22] MEDS: diazePAM 5 MG TABLET PO ×2 (09:00→13:08)
[2021-12-22] MEDS: Methylphenidate HCl 10 MG TABLET 20 MG PO ×3 (09:00→15:51)
[2021-12-22 09:09] LABS: Valproate 68.6 mcg/mL (50.0-100.0)
[2021-12-22 13:05] VITALS: BP 113/56; PULSE 64
--- NOTE | 2021-12-22 13:37 | P.PNPSI_ITS ---
Subjective Subjective Date of Service: 12/22/21 Reason For Visit: Mood disorder Subjective Notes: Conditional Voluntary Interim History: The nursing staff reported that the patient has been compliant with treatment, she was seen in the common areas participating a few groups. On interview the patient reported that she is worried that she could be unpredictable and angry. I explained her that her Depakote level is in the therapeutic level now and she will be able to be more stable since she has several medications. I will contact his primary care psychiatrist and explain the mild changes that we have done. We are planning for discharge for this Saturday. Mental Status Exam Mental Status Exam Patient Appearance: Well Grooomed Patient Orientation: Person and Situation Level of Consciousness: Awake Patient Behavior: Cooperative Mood Description: Calm Affect Description: Constricted Patient Cognition Impaired: No Ability to Follow Directions: Good Speech Pattern: Clear Memory Description: Intact Hallucinations: None Delusions: Not Present Thought Process: Intact Thought Content: positive for Intact Judgement: Fair Diagnostics Vital Signs (24Hr): Vital Signs - 24 hr 12/21/21 20:15 12/22/21 08:57 12/22/21 13:05 Temperature 97.6 F 97.7 F Pulse Rate 66 65 64 Respiratory Rate 18 16 Blood Pressure 117/63 112/54 L 113/56 L Pulse Oximetry 95 91 L Labs Results: 12/19/21 07:26 12/19/21 07:26 Labs: Laboratory Results - last 48 hr 12/22/21 08:22 Valproic Acid 68.6 Medications Medications Current Medications Acetaminophen (Acetaminophen 325 Mg Tablet) 650 mg PO Q6H PRN PRN Reason: Headache/Pain Mild Scale (1-3) Last Admin: 12/19/21 00:57 Dose: 650 mg Documented by: Al Hydroxide/Mg Hydroxide (Magnesium Hydrox/Alum Hydrox 30 Ml Oral.Susp) 30 ml PO Q6H PRN PRN Reason: Heartburn/Nausea Cyanocobalamin (Cyanocobalamin (Vitamin B-12) 1,000 Mcg Tablet) 1,000 mcg PO DAILY [facility] Last Admin: 12/22/21 08:58 Dose: 1,000 mcg Documented by: Diazepam (Diazepam 5 Mg Tablet) 10 mg PO BEDTIME [facility] Last Admin: 12/21/21 22:11 Dose: 10 mg Documented by: Diazepam (Diazepam 5 Mg Tablet) 5 mg PO BID@0800,1300 [facility] Last Admin: 12/22/21 13:08 Dose: 5 mg Documented by: Divalproex Sodium (Divalproex Sodium 250 Mg Tablet.) 250 mg PO BID@0800,1500 [facility] Last Admin: 12/22/21 08:58 Dose: 250 mg Documented by: Divalproex Sodium (Divalproex Sodium 500 Mg Tablet.) 500 mg PO BEDTIME [facility] Last Admin: 12/21/21 22:10 Dose: 500 mg Documented by: Fluoxetine HCl (Fluoxetine Hcl 20 Mg Capsule) 60 mg PO DAILY [facility] Last Admin: 12/22/21 08:59 Dose: 60 mg Documented by: Gabapentin (Gabapentin 400 Mg Capsule) 400 mg PO TID [facility] Last Admin: 12/22/21 08:59 Dose: 400 mg Documented by: Hydroxyzine HCl (Hydroxyzine Hcl 25 Mg Tablet) 25 mg PO BEDTIME PRN PRN Reason: Anxiety Lorazepam (Lorazepam 1 Mg Tablet) 1 mg PO TID PRN PRN Reason: agitation, anxiety Magnesium Hydroxide (Milk Of Magnesia 30 Ml Oral.Susp) 30 ml PO DAILY PRN PRN Reason: Constipation Methylphenidate HCl (Methylphenidate Hcl 10 Mg Tablet) 20 mg PO TID@0800,1200,1600 [facility] Last Admin: 12/22/21 13:08 Dose: 20 mg Documented by: Metoclopramide HCl (Metoclopramide Hcl 5 Mg Tablet) 5 mg PO Q6H PRN PRN Reason: Nausea Last Admin: 12/20/21 13:41 Dose: 5 mg Documented by: Propranolol HCl (Propranolol Hcl 20 Mg Tablet) 20 mg PO QID [facility]; Protocol Last Admin: 12/22/21 09:01 Dose: Not Given Documented by: Quetiapine Fumarate (Quetiapine Fumarate 100 Mg Tablet) 100 mg PO BEDTIME [facility] Last Admin: 12/21/21 22:11 Dose: 100 mg Documented by: Quetiapine Fumarate (Quetiapine Fumarate 25 Mg Tablet) 25 mg PO BID@0800,1300 [facility] Last Admin: 12/22/21 13:08 Dose: 25 mg Documented by: Allergies Allergies Allergy/AdvReac Type Severity Reaction Status Date / Time ampicillin [AMPICILLIN] Allergy Unknown ERYTHEMA Verified 11/08/21 18:13 NODOSUM (LEG SWELLING) droperidol [From INAPSINE] Allergy Unknown SEIZURES Verified 11/08/21 18:13 oxycodone [From PERCOCET] Allergy Unknown DIFFICULTY Verified 11/08/21 18:13 BREATHING trazodone [TRAZODONE] Allergy Unknown UNKNOWN Verified 11/08/21 18:13 erythromycin base AdvReac Unknown STOMACH Verified 11/08/21 18:13 [ERYTHROMYCIN BASE] UPSET Fish Containing Products AdvReac Unknown NAUSEA Verified 11/08/21 18:13 Erythromycin Allergy Unknown Unknown Uncoded 11/08/21 18:13 Inapsine Allergy Unknown Unknown Uncoded 11/08/21 18:13 Assessment & Plan Assessment & Plan (1) Borderline personality disorder: Status: Acute Code(s): F60.3 - Borderline personality disorder (2) Bipolar 1 disorder: Status: Acute Code(s): F31.9 - Bipolar disorder, unspecified Plan the patient is and a middle-aged female with a long history of bipolar disorder, borderline personality disorder, OCD and PTSD readmitted after a sudden symptoms of mood lability, dysphoria and anger, unable to contract for safety in the community. Plan 1. Continue same medications. 2. Gather collateral information, called Dr. Jaeger to get more information. 3. Depakote level on the therapeutic range. 4. Discharge for Saturday I spent minutes with the patient and/or on the patient floor today, greater than?50% of which was spent counseling/coordinating care. Reason for contiued inpatient stay Substantial Risk for: inability to function, rapid decompensation and med/psych decompensation
--- NOTE | 2021-12-22 13:41 | PM.PSYDC ---
DS: Providers Provider Date of Service: 12/22/21 Date of admission: 12/18/21 13:15 Date of discharge: 12/25/21 Primary care physician: Unknown Physician Consults: 12/18/21 13:10 Consult to Hospitalist Routine Consulting Provider: Hospitalist Reason For Exam: Direct admission, needs H&P DS: Diagnosis Discharge Diagnosis (1) Borderline personality disorder: Status: Acute (2) Bipolar 1 disorder: Status: Acute DS: Medications Discharge Medications Home Medications: Home Medications Medication Instructions Recorded Confirmed cyanocobalamin (vitamin B-12) 1 tab PO DAILY 12/14/20 11/08/21 1,000 mcg tablet Previous Rx's Medication Instructions Recorded diazepam 10 mg tablet 10 mg PO BEDTIME 30 Days #30 tab 11/17/21 diazepam 5 mg tablet 5 mg PO BID 30 Days #60 tab 11/17/21 divalproex 250 mg tablet,delayed 250 mg PO TID 30 Days #90 tab 11/17/21 release fluoxetine 20 mg capsule 3 cap PO QAM 30 Days #90 cap 11/17/21 gabapentin 400 mg capsule 1 cap PO TID 30 Days #90 cap 11/17/21 lorazepam 1 mg tablet 1 mg PO TID PRN 30 Days #90 tab 11/17/21 lorazepam 1 mg tablet 1 tab PO TID PRN 30 Days #90 tab 11/17/21 methylphenidate HCl 20 mg tablet 1 tab PO TID@0800,1200,1600 30 11/17/21 Days #90 tab propranolol 20 mg tablet 20 mg PO QID 30 Days #120 tab 11/17/21 quetiapine 100 mg tablet 100 mg PO BEDTIME 30 Days #30 tab 11/17/21 quetiapine 25 mg tablet 1 tab PO BID 30 Days #60 tab 11/17/21 divalproex 250 mg tablet,delayed 250 mg PO BID@0800,1500 30 Days 12/22/21 release #60 tab divalproex 500 mg tablet,delayed 500 mg PO BEDTIME 30 Days #30 tab 12/22/21 release Mental Status Exam Mental Status Exam Patient Appearance: Well Grooomed Patient Orientation: Person Level of Consciousness: Awake Patient Behavior: Cooperative Mood Description: Calm and Constricted Affect Description: Constricted Patient Cognition Impaired: No Ability to Follow Directions: Good Speech Pattern: Clear Memory Description: Intact Hallucinations: None Delusions: Not Present Thought Process: Linear Thought Content: positive for Circumstantial Judgement: Fair Data Data Completed and Pending Completed studies during hospitalization [Text1]: 12/18/21 12/19/21 12/19/21 13:40 07:26 07:26 WBC 6.6 RBC 4.28 Hgb 13.2 Hct 41.5 MCV 97.0 MCH 30.8 MCHC 31.8 RDW 14.9 Plt Count 132 L MPV 10.3 Immature Gran % (Auto) 0.3 Neut % (Auto) 55.5 Lymph % (Auto) 31.1 [place] % (Auto) 8.5 Eos % (Auto) 4.1 H Baso % (Auto) 0.5 Lymph # (Auto) 2.0 [place] # (Auto) 0.6 Eos # (Auto) 0.3 Baso # (Auto) 0.0 Abs Immat Gran (auto) 0.02 Absolute Neuts (auto) 3.6 Absolute Nucleated RBC 0.000 Nucleated RBC % (auto) 0.0 Sodium 141 Potassium 4.3 Chloride 100 Carbon Dioxide 35 H Anion Gap 10 L BUN 16 Creatinine 0.90 Estim Creat Clear Calc TNP Estimated GFR > 60 Random Glucose 86 Estimat Average Glucose Hemoglobin A1c % Calcium 8.9 Total Bilirubin 0.4 Direct Bilirubin 0.2 AST 15 ALT 9 Alkaline Phosphatase 53 D Total Protein 6.3 L Albumin 3.6 Triglycerides 98 Cholesterol 190 LDL Cholesterol, Calc 117 HDL Cholesterol 54 TSH 3.36 Urine Color Urine Appearance Urine pH Ur Specific [place] Urine Protein Urine Glucose (UA) Urine Ketones Urine Blood Urine Nitrite Ur Leukocyte Esterase Valproic Acid 51.4 COVID-19 ([facility]INA) Negative COVID-19 Clin Com See Note 12/19/21 12/19/21 12/22/21 07:26 12:00 08:22 WBC RBC Hgb Hct MCV MCH MCHC RDW Plt Count MPV Immature Gran % (Auto) Neut % (Auto) Lymph % (Auto) [place] % (Auto) Eos % (Auto) Baso % (Auto) Lymph # (Auto) [place] # (Auto) Eos # (Auto) Baso # (Auto) Abs Immat Gran (auto) Absolute Neuts (auto) Absolute Nucleated RBC Nucleated RBC % (auto) Sodium Potassium Chloride Carbon Dioxide Anion Gap BUN Creatinine Estim Creat Clear Calc Estimated GFR Random Glucose Estimat Average Glucose 105 Hemoglobin A1c % 5.3 Calcium Total Bilirubin Direct Bilirubin AST ALT Alkaline Phosphatase Total Protein Albumin Triglycerides Cholesterol LDL Cholesterol, Calc HDL Cholesterol TSH Urine Color YELLOW Urine Appearance CLEAR Urine pH 6.0 Ur Specific [place] <= 1.005 Urine Protein NEG Urine Glucose (UA) NEG Urine Ketones NEG Urine Blood NEG Urine Nitrite NEG Ur Leukocyte Esterase NEG Valproic Acid 68.6 COVID-19 ([facility]) COVID-19 Clin Com DS: Summary Hospital Course Hospital Course: the patient was referred from her primary psychiatrist since she was more depressed and impulsive. She reported unsafe behaviors and she was unable to contract for safety. Please see admission note for further details. On admission, the patient was reassessed. She is very well known by the service because we discharge her a few weeks ago with a similar presentation. In this case, the patient reported that she had been more angry and dysphoric for the last 2 weeks without a clear stressor and at certain point she even have the thought of hurting her CT. On admission, we check her Depakote level and he was on a lower therapeutic range so we increase it up to 250 mg p.o. b.i.d. and 500 mg p.o. q.h.s. with a therapeutic level of 69.7. The patient did not have any side effects she was able to tolerate the medication and she was pleasant and cooperative. We discussed the case with the social media campaign manager and she agreed to be referred to a DBT group. Since there were no safety concerns and the patient was able to contract for safety discharge planning was discussed. Time spent discussing smoking cessation with patient: 3 to 10 minutes Status at Discharge Cognitive/behavioral status at discharge: At baseline Functional status at discharge: independent ambulation Overall status at discharge: patient is back to baseline Time Spent with Patient Time attestation: Total time spent providing and/or coordinating discharge services: Time spent: Less than 30 minutes Discharge Plan Discharge Patient Disposition: Home, Self-Care Discharge Diagnosis: borderline personality disorder. Mood disorder Referrals: Min[facility] program [Other] - 12/26/21 3:00 pm (Your appointment with Minh is scheduled for 12/26/21 at 3:00PM. He will see you weekly for therapist until more permanent DBT therapist can be in place with full enrollment to DBT program. You are on waitlist for full program. Appointments with Minh will be in office. There is also an opening for Saturday [facility] at 1:00PM with Jacquelin.) Dr Jaeger [Other] - 12/27/21 3:30 pm (Your next appointment with Dr Jaeger is 12/27/21 at 3:30pm.) Dr Sonny Parker [Other] - 1 Week Discharge Medications: New divalproex 250 mg Tablet,Delayed Release (Dr/Ec) 250 mg PO BID@0800,1500 30 Days Qty: 60 0RF divalproex 500 mg Tablet,Delayed Release (Dr/Ec) 500 mg PO BEDTIME 30 Days Qty: 30 0RF Continued cyanocobalamin (vitamin B-12) 1,000 mcg tablet 1 tab PO DAILY 0RF lorazepam 1 mg Tablet 1 mg PO TID PRN (Reason: Anxiety) 30 Days Qty: 90 0RF propranolol 20 mg Tablet 20 mg PO QID 30 Days Qty: 120 0RF Protocol: Hold for SBP/HR < HOLD for SBP < : 90 HOLD for HR < : 60 quetiapine 25 mg tablet 1 tab PO BID 30 Days Qty: 60 0RF methylphenidate HCl 20 mg tablet 1 tab PO TID@0800,1200,1600 30 Days Qty: 90 0RF gabapentin 400 mg capsule 1 cap PO TID 30 Days Qty: 90 0RF quetiapine 100 mg tablet 100 mg PO BEDTIME 30 Days Qty: 30 0RF lorazepam 1 mg tablet 1 tab PO TID PRN (Reason: Anxiety) 30 Days Qty: 90 0RF diazepam 10 mg tablet 10 mg PO BEDTIME 30 Days Qty: 30 0RF fluoxetine 20 mg capsule 3 cap PO QAM 30 Days Qty: 90 0RF diazepam 5 mg tablet 5 mg PO BID 30 Days Qty: 60 0RF Discontinued divalproex 250 mg Tablet,Delayed Release (Dr/Ec) 250 mg PO TID 30 Days Qty: 90 0RF Discharge Orders: Discharge Order (Routine); Ordered 12/25/21 Ordered By: Maynor Helms Diet: advance to usual diet Activity on Discharge: As tolerated Stand Alone Forms: Patient Portal Discharge page Care Plan Goals: care plan goals achieved in the unit Health Concerns: continue treatment as an outpatient by the primary care physician Plan of Treatment: medication management by Dr. Jaeger. The patient was referred to DBT groups Assessment: Min the patient is a middle-aged female with a long history of borderline personality disorder and mood disorder, readmitted after last admission a few weeks ago for exacerbation of impulsive behavior and dysphoria. In this case, her Depakote level was slightly low and it was corrected with improvement of her mood.
[2021-12-22 14:02] VITALS: BP 113/53; PULSE 69
[2021-12-22] MEDS: Propranolol HCL 20 MG TABLET PO ×2 (17:06→22:08)
[2021-12-22 17:08] VITALS: BP 148/65; PULSE 67
[2021-12-22] MEDS: LORazepam 1 MG TABLET PO (17:11)
[2021-12-22 22:00] VITALS: BP 108/62; PULSE 61; RESP 17; TEMP 36.5; O2SAT 97
[2021-12-22] MEDS: Divalproex Sodium 500 MG TABLET.DR PO (22:09)
[2021-12-22] MEDS: diazePAM 5 MG TABLET 10 MG PO (22:10)
[2021-12-22] MEDS: QUEtiapine Fumarate 100 MG TABLET PO (22:10)
[2021-12-23 08:00] VITALS: BP 112/56; PULSE 60; TEMP 35.8; O2SAT 95
[2021-12-23] MEDS: FLUoxetine HCl 20 MG CAPSULE 60 MG PO (08:53)
[2021-12-23] MEDS: diazePAM 5 MG TABLET PO ×2 (08:53→13:13)
[2021-12-23] MEDS: Gabapentin 400 MG CAPSULE PO ×3 (08:53→22:03)
[2021-12-23] MEDS: Propranolol HCL 20 MG TABLET PO ×3 (08:53→22:03)
[2021-12-23] MEDS: Divalproex Sodium 250 MG TABLET.DR PO ×2 (08:54→15:34)
[2021-12-23] MEDS: Cyanocobalamin (Vitamin B-12) 1,000 MCG TABLET 1000 MCG PO (08:54)
[2021-12-23] MEDS: Methylphenidate HCl 10 MG TABLET 20 MG PO ×3 (08:54→15:35)
[2021-12-23] MEDS: QUEtiapine Fumarate 25 MG TABLET PO ×2 (08:54→13:13)
--- NOTE | 2021-12-23 11:15 | HO.PSYCHPN ---
Subjective Subjective Date of Service: 12/23/21 Reason For Visit: Mood disorder Interim History: pt found ambulating in milieu with unit phone. she is amenable to interview. c/o hypnogogic/pompic hallucinations, reassured that these are relatively common and normal. she reports she would like to leave saturday. informs pt his understanding is plan is to DC saturday; will inquire further with staff. concerned she has not been getting propranolol due to diastolic BP params, informs her he will change them. no other complaints or requests. per staff, sleeping well, DC saturday. dep 02/11. Mental Status Exam Mental Status Exam Narrative: obese. appropriately dressed and groomed. cooperative. no PMA/PMR. speech nml rate, amount, loudness, tone, latency. thoughts linear and logical. affect flexible, appropriate to context, non-labile. no SI/HI/AVH expressed. Diagnostics Vital Signs (24Hr): Vital Signs - 24 hr 12/22/21 13:05 12/22/21 14:02 12/22/21 17:08 Temperature Pulse Rate 64 69 67 Respiratory Rate Blood Pressure 113/56 L 113/53 L 148/65 H Pulse Oximetry 12/22/21 22:00 12/23/21 08:00 Temperature 97.7 F 96.4 F L Pulse Rate 61 60 Respiratory Rate 17 Blood Pressure 108/62 112/56 L Pulse Oximetry 97 95 Labs Results: 12/19/21 07:26 12/19/21 07:26 Labs: Laboratory Results - last 48 hr 12/22/21 08:22 Valproic Acid 68.6 Medications Medications Current Medications Acetaminophen (Acetaminophen 325 Mg Tablet) 650 mg PO Q6H PRN PRN Reason: Headache/Pain Mild Scale (1-3) Last Admin: 12/19/21 00:57 Dose: 650 mg Documented by: Al Hydroxide/Mg Hydroxide (Magnesium Hydrox/Alum Hydrox 30 Ml Oral.Susp) 30 ml PO Q6H PRN PRN Reason: Heartburn/Nausea Cyanocobalamin (Cyanocobalamin (Vitamin B-12) 1,000 Mcg Tablet) 1,000 mcg PO DAILY [facility] Last Admin: 12/23/21 08:54 Dose: 1,000 mcg Documented by: Diazepam (Diazepam 5 Mg Tablet) 10 mg PO BEDTIME [facility] Last Admin: 12/22/21 22:10 Dose: 10 mg Documented by: Diazepam (Diazepam 5 Mg Tablet) 5 mg PO BID@0800,1300 [facility] Last Admin: 12/23/21 08:53 Dose: 5 mg Documented by: Divalproex Sodium (Divalproex Sodium 250 Mg Tablet.) 250 mg PO BID@0800,1500 [facility] Last Admin: 12/23/21 08:54 Dose: 250 mg Documented by: Divalproex Sodium (Divalproex Sodium 500 Mg Tablet.) 500 mg PO BEDTIME [facility] Last Admin: 12/22/21 22:09 Dose: 500 mg Documented by: Fluoxetine HCl (Fluoxetine Hcl 20 Mg Capsule) 60 mg PO DAILY [facility] Last Admin: 12/23/21 08:53 Dose: 60 mg Documented by: Gabapentin (Gabapentin 400 Mg Capsule) 400 mg PO TID [facility] Last Admin: 12/23/21 08:53 Dose: 400 mg Documented by: Hydroxyzine HCl (Hydroxyzine Hcl 25 Mg Tablet) 25 mg PO BEDTIME PRN PRN Reason: Anxiety Lorazepam (Lorazepam 1 Mg Tablet) 1 mg PO TID PRN PRN Reason: agitation, anxiety Last Admin: 12/22/21 17:11 Dose: 1 mg Documented by: Magnesium Hydroxide (Milk Of Magnesia 30 Ml Oral.Susp) 30 ml PO DAILY PRN PRN Reason: Constipation Methylphenidate HCl (Methylphenidate Hcl 10 Mg Tablet) 20 mg PO TID@0800,1200,1600 [facility] Last Admin: 12/23/21 08:54 Dose: 20 mg Documented by: Metoclopramide HCl (Metoclopramide Hcl 5 Mg Tablet) 5 mg PO Q6H PRN PRN Reason: Nausea Last Admin: 12/20/21 13:41 Dose: 5 mg Documented by: Propranolol HCl (Propranolol Hcl 20 Mg Tablet) 20 mg PO QID [facility]; Protocol Last Admin: 12/23/21 08:53 Dose: 20 mg Documented by: Quetiapine Fumarate (Quetiapine Fumarate 100 Mg Tablet) 100 mg PO BEDTIME [facility] Last Admin: 12/22/21 22:10 Dose: 100 mg Documented by: Quetiapine Fumarate (Quetiapine Fumarate 25 Mg Tablet) 25 mg PO BID@0800,1300 [facility] Last Admin: 12/23/21 08:54 Dose: 25 mg Documented by: Allergies Allergies Allergy/AdvReac Type Severity Reaction Status Date / Time ampicillin [AMPICILLIN] Allergy Unknown ERYTHEMA Verified 11/08/21 18:13 NODOSUM (LEG SWELLING) droperidol [From INAPSINE] Allergy Unknown SEIZURES Verified 11/08/21 18:13 oxycodone [From PERCOCET] Allergy Unknown DIFFICULTY Verified 11/08/21 18:13 BREATHING trazodone [TRAZODONE] Allergy Unknown UNKNOWN Verified 11/08/21 18:13 erythromycin base AdvReac Unknown STOMACH Verified 11/08/21 18:13 [ERYTHROMYCIN BASE] UPSET Fish Containing Products AdvReac Unknown NAUSEA Verified 11/08/21 18:13 Erythromycin Allergy Unknown Unknown Uncoded 11/08/21 18:13 Inapsine Allergy Unknown Unknown Uncoded 11/08/21 18:13 Assessment & Plan Assessment & Plan (1) Borderline personality disorder: Status: Acute Code(s): F60.3 - Borderline personality disorder (2) Bipolar 1 disorder: Status: Acute Code(s): F31.9 - Bipolar disorder, unspecified Plan the patient is and a middle-aged female with a long history of bipolar disorder, borderline personality disorder, OCD and PTSD readmitted after a sudden symptoms of mood lability, dysphoria and anger, unable to contract for safety in the community. Plan 1. Continue same medications. 2. Gather collateral information, called Dr. Jaeger to get more information. 3. Depakote level on the therapeutic range. 4. Discharge for Saturday I spent minutes with the patient and/or on the patient floor today, greater than?50% of which was spent counseling/coordinating care. Reason for contiued inpatient stay Substantial Risk for: inability to function and rapid decompensation
[2021-12-23 13:05] VITALS: BP 137/63; PULSE 56
[2021-12-23 21:44] VITALS: BP 116/58; PULSE 65; RESP 17; TEMP 36.6; O2SAT 96
[2021-12-23] MEDS: QUEtiapine Fumarate 100 MG TABLET PO (22:03)
[2021-12-23] MEDS: Divalproex Sodium 500 MG TABLET.DR PO (22:03)
[2021-12-23 22:10] VITALS: BMI 36.7
[2021-12-23] MEDS: diazePAM 5 MG TABLET 10 MG PO (22:37)
[2021-12-24] MEDS: FLUoxetine HCl 20 MG CAPSULE 60 MG PO (09:21)
[2021-12-24] MEDS: Methylphenidate HCl 10 MG TABLET 20 MG PO ×3 (09:21→16:03)
[2021-12-24] MEDS: Propranolol HCL 20 MG TABLET PO ×4 (09:22→21:41)
[2021-12-24] MEDS: Divalproex Sodium 250 MG TABLET.DR PO ×2 (09:22→16:04)
[2021-12-24] MEDS: QUEtiapine Fumarate 25 MG TABLET PO ×2 (09:22→13:32)
[2021-12-24] MEDS: Cyanocobalamin (Vitamin B-12) 1,000 MCG TABLET 1000 MCG PO (09:22)
[2021-12-24] MEDS: diazePAM 5 MG TABLET PO ×2 (09:22→13:32)
[2021-12-24] MEDS: Gabapentin 400 MG CAPSULE PO ×3 (09:22→21:41)
--- NOTE | 2021-12-24 10:38 | HO.PSYCHPN ---
Subjective Subjective Date of Service: 12/24/21 Reason For Visit: Mood disorder Interim History: pt seen in her room receiving medication. appears anxious, describes how she feels overwhelmed by aftercare plan, that there are three major activities she will need to do three days in a row. she knows she will not be able to adhere to the plan and that it is a set-up for her. she is requesting to not discharge tomorrow. contacts attending, juan, who agrees with plan to defer discharge. per staff, slept well overnight. no other notable events or behaviors. Mental Status Exam Mental Status Exam Narrative: obese. appropriately dressed and groomed. cooperative. no PMA/PMR. speech nml rate, incr amount. nml loudness, tone. decr latency. thoughts linear and logical. affect constricted, appropriate to context, min-labile. no SI/HI/AVH expressed. Diagnostics Vital Signs (24Hr): Vital Signs - 24 hr 12/23/21 13:05 12/23/21 21:44 Temperature 97.9 F Pulse Rate 56 65 Respiratory Rate 17 Blood Pressure 137/63 116/58 L Pulse Oximetry 96 BMI result Body Mass Index 36.7 Labs Results: 12/19/21 07:26 12/19/21 07:26 Medications Medications Current Medications Acetaminophen (Acetaminophen 325 Mg Tablet) 650 mg PO Q6H PRN PRN Reason: Headache/Pain Mild Scale (1-3) Last Admin: 12/19/21 00:57 Dose: 650 mg Documented by: Al Hydroxide/Mg Hydroxide (Magnesium Hydrox/Alum Hydrox 30 Ml Oral.Susp) 30 ml PO Q6H PRN PRN Reason: Heartburn/Nausea Cyanocobalamin (Cyanocobalamin (Vitamin B-12) 1,000 Mcg Tablet) 1,000 mcg PO DAILY [facility] Last Admin: 12/24/21 09:22 Dose: 1,000 mcg Documented by: Diazepam (Diazepam 5 Mg Tablet) 5 mg PO BID@0800,1300 [facility] Last Admin: 12/24/21 09:22 Dose: 5 mg Documented by: Diazepam (Diazepam 5 Mg Tablet) 10 mg PO BEDTIME [facility] Last Admin: 12/23/21 22:37 Dose: 10 mg Documented by: Divalproex Sodium (Divalproex Sodium 250 Mg Tablet.) 250 mg PO BID@0800,1500 [facility] Last Admin: 12/24/21 09:22 Dose: 250 mg Documented by: Divalproex Sodium (Divalproex Sodium 500 Mg Tablet.Dr) 500 mg PO BEDTIME [facility] Last Admin: 12/23/21 22:03 Dose: 500 mg Documented by: Fluoxetine HCl (Fluoxetine Hcl 20 Mg Capsule) 60 mg PO DAILY [facility] Last Admin: 12/24/21 09:21 Dose: 60 mg Documented by: Gabapentin (Gabapentin 400 Mg Capsule) 400 mg PO TID [facility] Last Admin: 12/24/21 09:22 Dose: 400 mg Documented by: Hydroxyzine HCl (Hydroxyzine Hcl 25 Mg Tablet) 25 mg PO BEDTIME PRN PRN Reason: Anxiety Magnesium Hydroxide (Milk Of Magnesia 30 Ml Oral.Susp) 30 ml PO DAILY PRN PRN Reason: Constipation Methylphenidate HCl (Methylphenidate Hcl 10 Mg Tablet) 20 mg PO TID@0800,1200,1600 [facility] Last Admin: 12/24/21 09:21 Dose: 20 mg Documented by: Metoclopramide HCl (Metoclopramide Hcl 5 Mg Tablet) 5 mg PO Q6H PRN PRN Reason: Nausea Last Admin: 12/20/21 13:41 Dose: 5 mg Documented by: Propranolol HCl (Propranolol Hcl 20 Mg Tablet) 20 mg PO QID [facility]; Protocol Last Admin: 12/24/21 09:22 Dose: 20 mg Documented by: Quetiapine Fumarate (Quetiapine Fumarate 100 Mg Tablet) 100 mg PO BEDTIME [facility] Last Admin: 12/23/21 22:03 Dose: 100 mg Documented by: Quetiapine Fumarate (Quetiapine Fumarate 25 Mg Tablet) 25 mg PO BID@0800,1300 [facility] Last Admin: 12/24/21 09:22 Dose: 25 mg Documented by: Allergies Allergies Allergy/AdvReac Type Severity Reaction Status Date / Time ampicillin [AMPICILLIN] Allergy Unknown ERYTHEMA Verified 11/08/21 18:13 NODOSUM (LEG SWELLING) droperidol [From INAPSINE] Allergy Unknown SEIZURES Verified 11/08/21 18:13 oxycodone [From PERCOCET] Allergy Unknown DIFFICULTY Verified 11/08/21 18:13 BREATHING trazodone [TRAZODONE] Allergy Unknown UNKNOWN Verified 11/08/21 18:13 erythromycin base AdvReac Unknown STOMACH Verified 11/08/21 18:13 [ERYTHROMYCIN BASE] UPSET Fish Containing Products AdvReac Unknown NAUSEA Verified 11/08/21 18:13 Erythromycin Allergy Unknown Unknown Uncoded 11/08/21 18:13 Inapsine Allergy Unknown Unknown Uncoded 11/08/21 18:13 Assessment & Plan Assessment & Plan (1) Borderline personality disorder: Status: Acute Code(s): F60.3 - Borderline personality disorder (2) Bipolar 1 disorder: Status: Acute Code(s): F31.9 - Bipolar disorder, unspecified Plan the patient is and a middle-aged female with a long history of bipolar disorder, borderline personality disorder, OCD and PTSD readmitted after a sudden symptoms of mood lability, dysphoria and anger, unable to contract for safety in the community. Plan 1. Continue same medications. 2. Gather collateral information, called Dr. Jaeger to get more information. 3. Depakote level on the therapeutic range. 4. Discharge for Saturday has been cancelled at pt request. primary team to meet with pt saturday. I spent minutes with the patient and/or on the patient floor today, greater than?50% of which was spent counseling/coordinating care. Reason for contiued inpatient stay Substantial Risk for: harm to self, inability to function and rapid decompensation
[2021-12-24 20:54] VITALS: BP 129/61; PULSE 60; RESP 17; TEMP 36.2; O2SAT 94
[2021-12-24] MEDS: Divalproex Sodium 500 MG TABLET.DR PO (21:41)
[2021-12-24] MEDS: diazePAM 5 MG TABLET 10 MG PO (21:41)
[2021-12-24] MEDS: QUEtiapine Fumarate 100 MG TABLET PO (21:42)
[2021-12-25 08:00] VITALS: BP 117/57; PULSE 55; RESP 19; TEMP 36.4; O2SAT 96
[2021-12-25] MEDS: Methylphenidate HCl 10 MG TABLET 20 MG PO ×3 (09:20→16:18)
[2021-12-25] MEDS: Gabapentin 400 MG CAPSULE PO ×3 (09:21→22:09)
[2021-12-25] MEDS: Divalproex Sodium 250 MG TABLET.DR PO ×2 (09:21→16:18)
[2021-12-25] MEDS: diazePAM 5 MG TABLET PO ×2 (09:21→13:07)
[2021-12-25] MEDS: Cyanocobalamin (Vitamin B-12) 1,000 MCG TABLET 1000 MCG PO (09:21)
[2021-12-25] MEDS: QUEtiapine Fumarate 25 MG TABLET PO ×2 (09:21→13:07)
[2021-12-25] MEDS: FLUoxetine HCl 20 MG CAPSULE 60 MG PO (09:21)
[2021-12-25] MEDS: Propranolol HCL 20 MG TABLET PO ×4 (09:21→22:08)
[2021-12-25 10:00] VITALS: BP 96/52; PULSE 59; RESP 16; TEMP 36.6; O2SAT 94
[2021-12-25 16:00] VITALS: BP 100/52; PULSE 59; O2SAT 93
--- NOTE | 2021-12-25 16:55 | P.PNPSI_ITS ---
Subjective Subjective Date of Service: 12/25/21 Reason For Visit: Mood disorder Interim History: feeling well, calling to change her appointments with the new information she will not be discharging today. counseled to coordinate with gwendolyn BOSCH on that score, which she stated she would do. asks MD question about martínez's propensity to cause strange dreams/nightmares or not. per staff, isolative. eating, sleeping well. planning for DC tomorrow. Mental Status Exam Mental Status Exam Narrative: obese. appropriately dressed and groomed. cooperative. no PMA/PMR. speech nml rate, incr amount. nml loudness, tone. decr latency. thoughts linear and logical. affect flexible, appropriate to context, non-labile. no SI/HI/AVH expressed. Diagnostics Vital Signs (24Hr): Vital Signs - 24 hr 12/24/21 20:54 12/25/21 08:00 Temperature 97.1 F 97.6 F Pulse Rate 60 55 Respiratory Rate 17 19 Blood Pressure 129/61 117/57 L Pulse Oximetry 94 96 BMI result Body Mass Index 36.7 Labs Results: 12/19/21 07:26 12/19/21 07:26 Medications Medications Current Medications Acetaminophen (Acetaminophen 325 Mg Tablet) 650 mg PO Q6H PRN PRN Reason: Headache/Pain Mild Scale (1-3) Last Admin: 12/19/21 00:57 Dose: 650 mg Documented by: Al Hydroxide/Mg Hydroxide (Magnesium Hydrox/Alum Hydrox 30 Ml Oral.Susp) 30 ml PO Q6H PRN PRN Reason: Heartburn/Nausea Cyanocobalamin (Cyanocobalamin (Vitamin B-12) 1,000 Mcg Tablet) 1,000 mcg PO DAILY [facility] Last Admin: 12/25/21 09:21 Dose: 1,000 mcg Documented by: Diazepam (Diazepam 5 Mg Tablet) 5 mg PO BID@0800,1300 [facility] Last Admin: 12/25/21 13:07 Dose: 5 mg Documented by: Diazepam (Diazepam 5 Mg Tablet) 10 mg PO BEDTIME [facility] Last Admin: 12/24/21 21:41 Dose: 10 mg Documented by: Divalproex Sodium (Divalproex Sodium 250 Mg Tablet.) 250 mg PO BID@0800,1500 [facility] Last Admin: 12/25/21 16:18 Dose: 250 mg Documented by: Divalproex Sodium (Divalproex Sodium 500 Mg Tablet.Dr) 500 mg PO BEDTIME [facility] Last Admin: 12/24/21 21:41 Dose: 500 mg Documented by: Fluoxetine HCl (Fluoxetine Hcl 20 Mg Capsule) 60 mg PO DAILY [facility] Last Admin: 12/25/21 09:21 Dose: 60 mg Documented by: Gabapentin (Gabapentin 400 Mg Capsule) 400 mg PO TID [facility] Last Admin: 12/25/21 16:18 Dose: 400 mg Documented by: Hydroxyzine HCl (Hydroxyzine Hcl 25 Mg Tablet) 25 mg PO BEDTIME PRN PRN Reason: Anxiety Magnesium Hydroxide (Milk Of Magnesia 30 Ml Oral.Susp) 30 ml PO DAILY PRN PRN Reason: Constipation Methylphenidate HCl (Methylphenidate Hcl 10 Mg Tablet) 20 mg PO TID@0800,1200,1600 [facility] Last Admin: 12/25/21 16:18 Dose: 20 mg Documented by: Metoclopramide HCl (Metoclopramide Hcl 5 Mg Tablet) 5 mg PO Q6H PRN PRN Reason: Nausea Last Admin: 12/20/21 13:41 Dose: 5 mg Documented by: Propranolol HCl (Propranolol Hcl 20 Mg Tablet) 20 mg PO QID [facility]; Protocol Last Admin: 12/25/21 16:18 Dose: 20 mg Documented by: Quetiapine Fumarate (Quetiapine Fumarate 100 Mg Tablet) 100 mg PO BEDTIME [facility] Last Admin: 12/24/21 21:42 Dose: 100 mg Documented by: Quetiapine Fumarate (Quetiapine Fumarate 25 Mg Tablet) 25 mg PO BID@0800,1300 [facility] Last Admin: 12/25/21 13:07 Dose: 25 mg Documented by: Allergies Allergies Allergy/AdvReac Type Severity Reaction Status Date / Time ampicillin [AMPICILLIN] Allergy Unknown ERYTHEMA Verified 11/08/21 18:13 NODOSUM (LEG SWELLING) droperidol [From INAPSINE] Allergy Unknown SEIZURES Verified 11/08/21 18:13 oxycodone [From PERCOCET] Allergy Unknown DIFFICULTY Verified 11/08/21 18:13 BREATHING trazodone [TRAZODONE] Allergy Unknown UNKNOWN Verified 11/08/21 18:13 erythromycin base AdvReac Unknown STOMACH Verified 11/08/21 18:13 [ERYTHROMYCIN BASE] UPSET Fish Containing Products AdvReac Unknown NAUSEA Verified 11/08/21 18:13 Erythromycin Allergy Unknown Unknown Uncoded 11/08/21 18:13 Inapsine Allergy Unknown Unknown Uncoded 11/08/21 18:13 Assessment & Plan Assessment & Plan (1) Borderline personality disorder: Status: Acute Code(s): F60.3 - Borderline personality disorder (2) Bipolar 1 disorder: Status: Acute Code(s): F31.9 - Bipolar disorder, unspecified Plan the patient is and a middle-aged female with a long history of bipolar disorder, borderline personality disorder, OCD and PTSD readmitted after a sudden symptoms of mood lability, dysphoria and anger, unable to contract for safety in the community. Plan 1. Continue same medications. 2. Gather collateral information, called Dr. Jaeger to get more information. 3. Depakote level on the therapeutic range. 4. Discharge for Saturday has been cancelled at pt request. primary team to meet with pt saturday. I spent minutes with the patient and/or on the patient floor today, greater than?50% of which was spent counseling/coordinating care. Reason for contiued inpatient stay Substantial Risk for: inability to function and rapid decompensation
[2021-12-25] MEDS: Metoclopramide HCl 5 MG TABLET PO (19:34)
[2021-12-25] MEDS: QUEtiapine Fumarate 100 MG TABLET PO (22:08)
[2021-12-25] MEDS: Divalproex Sodium 500 MG TABLET.DR PO (22:09)
[2021-12-25] MEDS: diazePAM 5 MG TABLET 10 MG PO (22:09)
[2021-12-26 07:45] VITALS: BP 113/56; PULSE 52; RESP 16; TEMP 36.2; O2SAT 96
[2021-12-26] MEDS: FLUoxetine HCl 20 MG CAPSULE 60 MG PO (09:36)
[2021-12-26] MEDS: Divalproex Sodium 250 MG TABLET.DR PO (09:36)
[2021-12-26] MEDS: Methylphenidate HCl 10 MG TABLET 20 MG PO ×2 (09:36→12:32)
[2021-12-26] MEDS: Propranolol HCL 20 MG TABLET PO ×2 (09:36→12:29)
[2021-12-26] MEDS: Gabapentin 400 MG CAPSULE PO (09:36)
[2021-12-26] MEDS: diazePAM 5 MG TABLET PO ×2 (09:36→12:30)
[2021-12-26] MEDS: Cyanocobalamin (Vitamin B-12) 1,000 MCG TABLET 1000 MCG PO (09:36)
[2021-12-26] MEDS: QUEtiapine Fumarate 25 MG TABLET PO ×2 (09:36→12:29)
[2021-12-26 12:24] VITALS: BP 92/57; PULSE 59
--- NOTE | 2021-12-26 13:23 | PC.NURSE ---
Discharge Note patient alert and oriented x4; memory appears intact. Patient on room air, vital signs appear stable, pt on room air and independent ambulation. Patient offered no complaints at this time. patient aware of and expressed readiness for discharge, patient stated I feel happy to go home to my and cat. Patient complaint with medications and care. Patient belongings accounted for and handed to patient. Discharge instructions and education provided.
== END 2021-12-26 14:10 | disposition home or self-care (01) | DRG 883 ==
PROVIDERS: Admitting Provider Psychiatry & Neurology Psychiatry; Visit Provider Psychiatry & Neurology Psychiatry
DX: F60.3 Borderline personality disorder (principal); R45.851 Suicidal ideations; F31.9 Bipolar disorder, unspecified; F43.10 Post-traumatic stress disorder, unspecified; F42.9 Obsessive-compulsive disorder, unspecified; Z20.822 Contact with and (suspected) exposure to COVID-19; Z79.899 Other long term (current) drug therapy
CPT/HCPCS: 36415; 80048; 80061; 80076; 80164; 81003; 83036; 84443; 85025; 87635; 93005

== ENCOUNTER 2022-03-10 12:12 | Emergency (ER) | payer MEDICARE, SELFPAY ==
[2022-03-10 12:46] VITALS: BP 119/53; PULSE 57; RESP 16; TEMP 36.4; O2SAT 95; BMI 37.0
--- NOTE | 2022-03-10 13:08 | ED.PSYCH ---
HPI - Psych General Chief Complaint: Psychiatric Symptoms Stated Complaint: OD Time Seen by Provider: 03/10/22 13:07 Source: patient Mode of arrival: ambulatory Limitations: no limitations History of Present Illness HPI Narrative: 66-year-old female presents for overdose of her p.r.n. medications that happened at 19:00 last night. Patient tells me she was suicidal yesterday but is not suicidal now, no homicidal ideation, no hallucinations, no alcohol or drug use. Patient has had a recent heart disease diagnosis, she was reading about it on [employer], and impulsively took her pills. She took 12 of her 1 mg Ativan and 6 of her 2 mg propranolol. States she did not feel any different and nothing happened. keeps pills locked, these were the only pill she had access to. Patient has a past medical history of borderline personality disorder, major depression, anxiety, OCD, PTSD, hypertension hyperlipidemia. She was here in November 25 for bipolar and self-harm. She has a history of multiple psych hospitalizations, patient tells me she has been hospitalized more than 125 times for psychiatric concerns Related Data Home Medications Medication Instructions Recorded Confirmed cyanocobalamin (vitamin B-12) 1 tab PO DAILY 12/14/20 03/10/22 1,000 mcg tablet divalproex 500 mg tablet,delayed 750 mg PO BEDTIME 03/10/22 03/10/22 release propranolol 20 mg tablet 20 mg PO TID 03/10/22 03/10/22 rosuvastatin 5 mg tablet 1 tab PO DAILY 03/10/22 03/10/22 Previous Rx's Medication Instructions Recorded diazepam 10 mg tablet 10 mg PO BEDTIME 30 Days #30 tab 11/17/21 diazepam 5 mg tablet 5 mg PO BID 30 Days #60 tab 11/17/21 fluoxetine 20 mg capsule 3 cap PO QAM 30 Days #90 cap 11/17/21 gabapentin 400 mg capsule 1 cap PO TID 30 Days #90 cap 11/17/21 lorazepam 1 mg tablet 1 mg PO TID PRN 30 Days #90 tab 11/17/21 lorazepam 1 mg tablet 1 tab PO TID PRN 30 Days #90 tab 11/17/21 methylphenidate HCl 20 mg tablet 1 tab PO TID@0800,1200,1600 30 11/17/21 Days #90 tab quetiapine 100 mg tablet 100 mg PO BEDTIME 30 Days #30 tab 11/17/21 quetiapine 25 mg tablet 1 tab PO BID 30 Days #60 tab 11/17/21 divalproex 250 mg tablet,delayed 250 mg PO BID@0800,1500 30 Days 12/22/21 release #60 tab divalproex 500 mg tablet,delayed 500 mg PO BEDTIME 30 Days #30 tab 12/22/21 release metoclopramide HCl 10 mg tablet 10 mg PO Q6H PRN #30 tab 12/26/21 (Reglan) Allergies Allergy/AdvReac Type Severity Reaction Status Date / Time ampicillin [AMPICILLIN] Allergy Unknown ERYTHEMA Verified 11/08/21 18:13 NODOSUM (LEG SWELLING) droperidol [From INAPSINE] Allergy Unknown SEIZURES Verified 11/08/21 18:13 oxycodone [From PERCOCET] Allergy Unknown DIFFICULTY Verified 11/08/21 18:13 BREATHING trazodone [TRAZODONE] Allergy Unknown UNKNOWN Verified 11/08/21 18:13 erythromycin base AdvReac Unknown STOMACH Verified 11/08/21 18:13 [ERYTHROMYCIN BASE] UPSET Fish Containing Products AdvReac Unknown NAUSEA Verified 11/08/21 18:13 Erythromycin Allergy Unknown Unknown Uncoded 11/08/21 18:13 Inapsine Allergy Unknown Unknown Uncoded 11/08/21 18:13 Review of Systems Constitutional: Constitutional: Denies body ache(s), Denies chills, Denies fatigue, Denies fever(s), Denies headache(s), Denies malaise and Denies weakness Eyes: Eyes: Denies diplopia ENT: Denies vertigo, Denies dizziness, Denies otalgia, Denies headache(s), Denies mouth pain, Denies post nasal drip, Denies sinus pain, Denies sinus pressure, Denies sore throat and Denies throat swelling Cardiovascular: Cardiovascular: Denies chest pain, Denies syncope, Denies leg edema, Denies lightheadedness, Denies Loss of Consciousness, Denies palpitations and Denies dyspnea Respiratory: Respiratory: Denies chest congestion, Denies cough and Denies dyspnea Gastrointestinal: Gastrointestinal: Denies abdominal pain, Denies hematochezia, Denies constipation, Denies diarrhea and Denies vomiting Musculoskeletal: Musculoskeletal: Reports no additional musculoskeletal complaints Neurologic: Denies Abnormal speech present, Denies confusion, Denies vertigo, Denies dizziness, Denies syncope, Denies headache(s), Denies Sensory deficit (Neuro) and Denies weakness Psychiatric: Psychiatric: Reports anxiety, Denies confusion, Reports depression, Denies auditory hallucinations, Reports mood swings, Denies paranoia, Denies visual hallucinations, Denies hallucinations, Denies homicidal ideation and Denies suicidal ideation Endocrine: Endocrine: Denies fatigue and Denies palpitations Allergic/Immunologic: Allergic/Immunologic: Denies throat swelling PMFSH Past Medical History Medical History Anxiety Borderline personality disorder High cholesterol HTN (hypertension) Major depression OCD (obsessive compulsive disorder) PTSD (post-traumatic stress disorder) Social History Social History Household Members: Spouse Housing: House Housing Other:: Pt lives with in [place]; unsure if home or apartment. Do you presently have visiting nurse or other home services: No Unable to assess alcohol history related to: Unknown Alcohol intake: unknown Patient Tobacco Use Status: Never used Tobacco e-Cigarette/Vaping Use: Never Used Advance Directives: Yes Advance Directives on File: No service: No Sexual orientation: Straight/Heterosexual Physical Exam Vital Signs: Vital Signs: Last Vital Signs Temp 97.6 F 03/10/22 12:46 Pulse 57 03/10/22 12:46 Resp 16 03/10/22 12:46 BP 119/53 L 03/10/22 12:46 Pulse Ox 95 03/10/22 12:46 BMI result Body Mass Index 37.0 Const: General: No confusion Nutritional Appearance: well nourished Orientation/consciousness: patient oriented x3 and No confusion Limitations: no limitations HEENT: Head: Yes normal to inspection, Yes normocephalic and Yes atraumatic Ears: hearing grossly normal bilaterally, external ears normal, TM's normal bilaterally and EAC's normal General nose exam: Normal external nose present Face and sinus: Yes normal facial exam and Yes sinuses nontender Mouth: Normal oral and palatal mucosa present Throat: Yes posterior oropharynx normal Eyes: Conjunctivae: conjunctivae normal Pupils: Equal, round and reactive pupils present EOM: EOMs intact bilaterally Neck: Neck: Yes full ROM, Yes no lymphadenopathy and Yes supple Resp: Effort & Inspection: normal respiratory effort and able to speak in complete sentences Auscultation: clear to auscultation bilaterally, no crackles, no rales, no rhonchi and no wheezes Cardio: Rate: regular rate Rhythm: regular rhythm Heart sounds: S1 normal heart sound present and S2 normal heart sound present GI: Inspection: Yes normal to inspection Palpation (GI): Soft to palpation, nontender, no guarding and not rigid Percussion: Yes normal to percussion Auscultation: normal bowel sounds Skin: General skin exam: no rashes or lesions noted Neuro: General: patient oriented x3, gait normal and No confusion Cranial nerves: Yes CN's II-XII intact bilaterally, Yes Facial sensation intact/muscles of mastication intact, Yes Equal, round and reactive pupils present, Yes Normal accommodation reflex present, Yes Bilaterally intact EOM present, Yes Nystagmus not present, Yes Midline tongue present, Yes Ability to bilaterally rotate head present and Yes Ability to bilaterally elevate shoulders present Cognition (Neuro): normal cognition Speech: No Abnormal speech present Gait exam (Neuro): Normal gait present Motor exam (neuro): 5/5 motor strength present throughout and Pronator motor function not present Sensory Exam: No Sensory deficit (Neuro) Deep tendon reflexes (DTR's): Right brachioradialis reflex intensity grade: 1+, Left brachioradialis reflex intensity grade: 1+, Right patellar reflex intensity grade: 1+ and Left patellar reflex intensity grade: 1+ Coordination: [id number] test normal and [id number] test normal Pupils: Normal pupillary reactivity/response: bilateral Extrem: General: Yes normal to inspection and Yes full ROM Psych: Appearance: grossly normal Affect: normal affect Attitude: cooperative Thought process: Normal thought process present Course Course Course Narrative: States this 66-year-old female with a past medical history of borderline personality disorder, anxiety, major depression, OCD, PTSD, presents for overdose on her p.r.n. medications last night, 12 mg Ativan, 12 milligrams propranolol. Spoke to poison Control, who counseled to check Depakote level. Stated that patient should be observed for 8 hours before she is medically cleared. Patient took these pills last night at 19:00, it has been greater than 8 hours since she presented to the emergency room. Only lab abnormality is patient's urine is positive for benzodiazepines which is to be expected. Patient medically cleared at this time and ready for crisis evaluation Reevaluation(s) Reevaluation #1: Patient's Depakote level is 6.9 which is normal. Mei from the Care Team stated that patient was safe to discharge home, she has a DBT program that she is using, her is okay with the plan, a safety plan has been developed, patient states she will comply with plan. MDM - Psych Lab Data Result diagrams: 03/10/22 15:05 03/10/22 15:05 Labs: Lab Results 03/10/22 03/10/22 03/10/22 Range/Units 13:51 13:51 13:57 WBC (4.8-10.8) X10*3/uL RBC (4.20-5.50) X10*6/uL Hgb (12.0-16.0) g/dl Hct (37.0-47.0) % MCV (80.0-98.0) fL MCH (27.0-33.0) pg MCHC (31.0-35.0) g/dl RDW (11.0-16.0) % Plt Count (160-400) X10*3/uL MPV (9.4-12.3) fL Immature Gran % (Auto) (0.0-0.4) % Neut % (Auto) (45-73) % Lymph % (Auto) (20-40) % [place] % (Auto) (2-11) % Eos % (Auto) (0-4) % Baso % (Auto) (0-2) % Lymph # (Auto) (1.2-4.9) X10*3/uL [place] # (Auto) (0.1-1.2) X10*3/uL Eos # (Auto) (0.0-0.4) X10*3/uL Baso # (Auto) (0.0-0.2) X10*3/uL Abs Immat Gran (auto) (0.00-0.03) X10*3/uL Absolute Neuts (auto) (2.0-8.3) x10*3/uL Absolute Nucleated RBC (0.0-0.012) X10*3/uL Nucleated RBC % (auto) (0.0-0.2) /100WBC Sodium (135-145) mmol/L Potassium (3.3-5.1) mmol/L Chloride (96-108) mmol/L Carbon Dioxide (22-29) mmol/L Anion Gap (12-20) BUN (9-16) mg/dL Creatinine (0.5-1.4) mg/dL Estim Creat Clear Calc Estimated GFR Random Glucose (60-115) mg/dL Calcium (8.4-10.2) mg/dL Total Bilirubin (0.0-1.0) mg/dL AST (5-31) U/L ALT (0-31) U/L Alkaline Phosphatase (39-117) U/L Total Protein (6.5-8.0) g/dL Albumin (3.5-5.0) g/dL Urine Color YELLOW Urine Appearance CLEAR Urine pH 6.0 (5.0-8.0) Ur Specific [place] 1.015 (1.005-1.025) Urine Protein NEG (NEG-TRACE) MG/DL Urine Glucose (UA) NEG (NEG) MG/DL Urine Ketones NEG (NEG) MG/DL Urine Blood NEG (NEG) Urine Nitrite NEG (NEG) Ur Leukocyte Esterase NEG (NEG) Urine RBC 0-2 (0) /HPF Urine WBC 0 (0-4) /HPF Ur Squamous Epith Cells TRACE /LPF Urine Bacteria NONE /LPF Salicylates (15-30) mg/dL Urine Opiates Screen Not Detected (Not Detect) Urine Fentanyl Screen Not Detected (Not Detect) Acetaminophen (<30) mcg/mL Ur Barbiturates Screen Not Detected (Not Detect) Valproic Acid (50.0-100.0) mcg/mL Ur Phencyclidine Scrn Not Detected (Not Detect) Ur Amphetamines Screen Not Detected (Not Detect) U Benzodiazepines Scrn POSITIVE H (Not Detect) Urine Cocaine Screen Not Detected (Not Detect) U Marijuana (THC) Screen Not Detected (Not Detect) Ethyl Alcohol mg/dL COVID-19 (MELINA) Negative (Negative) COVID-19 Clin Com See Note 03/10/22 03/10/22 03/10/22 Range/Units 15:05 15:05 15:05 WBC 7.3 (4.8-10.8) X10*3/uL RBC 4.60 (4.20-5.50) X10*6/uL Hgb 14.3 (12.0-16.0) g/dl Hct 44.6 (37.0-47.0) % MCV 97.0 (80.0-98.0) fL MCH 31.1 (27.0-33.0) pg MCHC 32.1 (31.0-35.0) g/dl RDW 14.0 (11.0-16.0) % Plt Count 144 L (160-400) X10*3/uL MPV 11.0 (9.4-12.3) fL Immature Gran % (Auto) 0.5 H (0.0-0.4) % Neut % (Auto) 70.1 (45-73) % Lymph % (Auto) 18.9 L (20-40) % [place] % (Auto) 9.0 (2-11) % Eos % (Auto) 1.2 (0-4) % Baso % (Auto) 0.3 (0-2) % Lymph # (Auto) 1.4 (1.2-4.9) X10*3/uL [place] # (Auto) 0.7 (0.1-1.2) X10*3/uL Eos # (Auto) 0.1 (0.0-0.4) X10*3/uL Baso # (Auto) 0.0 (0.0-0.2) X10*3/uL Abs Immat Gran (auto) 0.04 H (0.00-0.03) X10*3/uL Absolute Neuts (auto) 5.1 (2.0-8.3) x10*3/uL Absolute Nucleated RBC 0.000 (0.0-0.012) X10*3/uL Nucleated RBC % (auto) 0.0 (0.0-0.2) /100WBC Sodium 140 (135-145) mmol/L Potassium 4.7 (3.3-5.1) mmol/L Chloride 101 (96-108) mmol/L Carbon Dioxide 28 (22-29) mmol/L Anion Gap 16 (12-20) BUN 18 H (9-16) mg/dL Creatinine 1.01 (0.5-1.4) mg/dL Estim Creat Clear Calc 63.1 Estimated GFR 55 Random Glucose 93 (60-115) mg/dL Calcium 9.3 (8.4-10.2) mg/dL Total Bilirubin 0.4 (0.0-1.0) mg/dL AST 23 D (5-31) U/L ALT 10 (0-31) U/L Alkaline Phosphatase 53 (39-117) U/L Total Protein 6.7 (6.5-8.0) g/dL Albumin 3.8 (3.5-5.0) g/dL Urine Color Urine Appearance Urine pH (5.0-8.0) Ur Specific [place] (1.005-1.025) Urine Protein (NEG-TRACE) MG/DL Urine Glucose (UA) (NEG) MG/DL Urine Ketones (NEG) MG/DL Urine Blood (NEG) Urine Nitrite (NEG) Ur Leukocyte Esterase (NEG) Urine RBC (0) /HPF Urine WBC (0-4) /HPF Ur Squamous Epith Cells /LPF Urine Bacteria /LPF Salicylates < 5.0 L (15-30) mg/dL Urine Opiates Screen (Not Detect) Urine Fentanyl Screen (Not Detect) Acetaminophen < 1 (<30) mcg/mL Ur Barbiturates Screen (Not Detect) Valproic Acid 69.9 (50.0-100.0) mcg/mL Ur Phencyclidine Scrn (Not Detect) Ur Amphetamines Screen (Not Detect) U Benzodiazepines Scrn (Not Detect) Urine Cocaine Screen (Not Detect) U Marijuana (THC) Screen (Not Detect) Ethyl Alcohol < 10 mg/dL COVID-19 ([facility]ELINA) (Negative) COVID-19 Clin Com ECG Data Interpretation: EKG shows sinus bradycardia at a rate of 59, AK interval 152, QRS 90, QTC 415, left axis, no ST depressions or elevations, no T-wave abnormalities, no change from EKG of 12/18/2021 Discharge Plan Discharge Clinical Impression: Overdose, Borderline personality disorder Patient Disposition: Home, Self-Care Additional Instructions: Please follow-up with your therapist, psychiatrist, and DBT program. Please do not take any pills that you are not prescribed Please return to emergency room if you have any thoughts of hurting yourself or anyone else or for any other new or concerning symptoms Prescriptions: No Action cyanocobalamin (vitamin B-12) 1,000 mcg tablet 1 tab PO DAILY 0RF divalproex 250 mg Tablet,Delayed Release (Dr/Ec) 250 mg PO BID@0800,1500 30 Days Qty: 60 0RF divalproex 500 mg Tablet,Delayed Release (Dr/Ec) 500 mg PO BEDTIME 30 Days Qty: 30 0RF metoclopramide HCl [Reglan] 10 mg tablet 10 mg PO Q6H PRN (Reason: nausea and vomiting) Qty: 30 0RF lorazepam 1 mg Tablet 1 mg PO TID PRN (Reason: Anxiety) 30 Days Qty: 90 0RF quetiapine 25 mg tablet 1 tab PO BID 30 Days Qty: 60 0RF methylphenidate HCl 20 mg tablet 1 tab PO TID@0800,1200,1600 30 Days Qty: 90 0RF gabapentin 400 mg capsule 1 cap PO TID 30 Days Qty: 90 0RF quetiapine 100 mg tablet 100 mg PO BEDTIME 30 Days Qty: 30 0RF lorazepam 1 mg tablet 1 tab PO TID PRN (Reason: Anxiety) 30 Days Qty: 90 0RF diazepam 10 mg tablet 10 mg PO BEDTIME 30 Days Qty: 30 0RF fluoxetine 20 mg capsule 3 cap PO QAM 30 Days Qty: 90 0RF diazepam 5 mg tablet 5 mg PO BID 30 Days Qty: 60 0RF divalproex 500 mg tablet,delayed release (DR/EC) 750 mg PO BEDTIME 0RF propranolol 20 mg tablet 20 mg PO TID 0RF Protocol: Hold for SBP/HR < HOLD for SBP < : 90 HOLD for HR < : 60 rosuvastatin 5 mg tablet 1 tab PO DAILY 0RF
--- NOTE | 2022-03-10 13:20 | PC.NURSE ---
addendum to triage: patient lives at home with who helps w meds, states shes impulsive and does stuff like this for no reason identifies her complicated medical issues were what prompted her to take extra medications (3 ativan and unk amt propanolol) provided t/w with med list seems stable at present, eating sandwich in room. spoke clearly about future medical appointments (one on 04/10, etc) contracts for safety now. denies voices and drug/ETOH/tobacco use.
[2022-03-10 14:06] LABS: Appearance Urine CLEAR; Color Urine YELLOW; Glucose Urine UA NEG (NEG); Leukocyte Esterase Urine NEG (NEG); Nitrite Urine NEG (NEG); Specific Gravity - Urine 1.015 (1.005-1.025); Urine Blood NEG (NEG); Urine Ketones NEG (NEG); Urine Protein NEG (NEG-TRACE)
[2022-03-10 14:19] LABS: Amphetamine Screen Urine Not Detected (Not Detect); Barbiturates, Urine Not Detected (Not Detect); Benzodiazepines Screen Urine POSITIVE (Not Detect); Cannabinoid Screen Urine Not Detected (Not Detect); Cocaine Screen Urine Not Detected (Not Detect); Fentanyl, urine Not Detected (Not Detect); Opiate Screen Urine Not Detected (Not Detect); Phencyclidine Screen Urine Not Detected (Not Detect)
--- NOTE | 2022-03-10 14:19 | ECG_ITS ---
Test Reason : MED CLEARANCE Blood Pressure : / mmHG Vent. Rate : 059 BPM Atrial Rate : 059 BPM P-R Int : 152 ms QRS Dur : 090 ms QT Int : 420 ms P-R-T Axes : 024 -01 015 degrees QTc Int : 415 ms Sinus bradycardia Cannot rule out Anterior infarct , age undetermined Abnormal ECG When compared with ECG of 18-DEC-2021 14:37, No significant change was found Referred By: Ashtyn Giles Electronically Signed By:Matti Arreola
[2022-03-10 14:20] LABS: RBC Urine 0-2 /HPF (0); Squamous Epithelial Cell Urine TRACE /LPF; WBC Urine 0 /HPF (0-4)
[2022-03-10 14:39] LABS: COVID-19 Test Negative (Negative)
[2022-03-10 15:16] LABS: MANUAL DIFF FLAG NO
[2022-03-10 15:41] LABS: Basophils Percent Auto 0.3 % (0-2); Eosinophils Absolute Auto 0.1 X10*3/uL (0.0-0.4); Eosinophils Percent Auto 1.2 % (0-4); Hematocrit 44.6 % (37.0-47.0); Hemoglobin 14.3 g/dl (12.0-16.0); Imm Gran Abs Auto 0.04 X10*3/uL (0.00-0.03); Imm Gran Pct Auto 0.5 % (0.0-0.4); Lymphocytes Absolute Auto 1.4 X10*3/uL (1.2-4.9); Lymphocytes Percent Auto 18.9 % (20-40); Mean Corpuscular HGB Conc 32.1 g/dl (31.0-35.0); Mean Corpuscular Hemoglobin 31.1 pg (27.0-33.0); Monocytes Absolute Auto 0.7 X10*3/uL (0.1-1.2); Neutrophils Absolute Auto 5.1 x10*3/uL (2.0-8.3); Neutrophils Percent Auto 70.1 % (45-73); Platelet Count 144 X10*3/uL (160-400); White Blood Count 7.3 X10*3/uL (4.8-10.8)
[2022-03-10 15:42] LABS: Ethanol < 10 mg/dL
[2022-03-10 15:45] LABS: Acetaminophen LAB < 1 mcg/mL (<30); Alanine Aminotransferase 10 U/L (0-31); Albumin Level 3.8 g/dL (3.5-5.0); Alkaline Phosphatase 53 U/L (39-117); Anion Gap 16 (12-20); Aspartate Amino Transferase 23 U/L (5-31); Bilirubin Total 0.4 mg/dL (0.0-1.0); Blood Urea Nitrogen 18 mg/dL (9-16); Calcium 9.3 mg/dL (8.4-10.2); Carbon Dioxide 28 mmol/L (22-29); Chloride 101 mmol/L (96-108); Creatinine Clr Calc Pharmacy 63.1; Estimated Glomerular Filt Rate 55; Glucose Random 93 mg/dL (60-115); Potassium 4.7 mmol/L (3.3-5.1); Salicylate < 5.0 mg/dL (15-30); Sodium 140 mmol/L (135-145); Total Protein 6.7 g/dL (6.5-8.0)
[2022-03-10 15:49] LABS: Valproate 69.9 mcg/mL (50.0-100.0)
== END 2022-03-10 19:47 | disposition home or self-care (01) ==
PROVIDERS: Nurse Practitioner Family; Physician Assistant; Absent Provider Psychiatry & Neurology Psychiatry; Emergency Provider Internal Medicine; PCP Internal Medicine
DX: T42.4X2A Poisoning by benzodiazepines, intentional self-harm, initial encounter (principal); T44.7X2A Poisoning by beta-adrenoreceptor antagonists, intentional self-harm, initial encounter; Y92.9 Unspecified place or not applicable; F60.3 Borderline personality disorder; F32.A Depression, unspecified; F41.9 Anxiety disorder, unspecified; F43.10 Post-traumatic stress disorder, unspecified; F42.9 Obsessive-compulsive disorder, unspecified; I10 Essential (primary) hypertension; Z79.899 Other long term (current) drug therapy; Z20.822 Contact with and (suspected) exposure to COVID-19
CPT/HCPCS: 36415; 80053; 80143; 80164; 80179; 80307; 81001; 82077; 85025; 87635; 93005; 99284

== ENCOUNTER 2022-08-09 18:29 | Emergency (ER) | payer MEDICARE, SELFPAY | END 2022-08-09 20:59 | disposition left against medical advice (07) | PROVIDERS: Emergency Provider Emergency Medicine; PCP Internal Medicine | DX: R45.851 Suicidal ideations (principal); F60.3 Borderline personality disorder; F31.9 Bipolar disorder, unspecified; F42.9 Obsessive-compulsive disorder, unspecified; F43.10 Post-traumatic stress disorder, unspecified ==

== ENCOUNTER 2022-08-28 02:58 | Inpatient (IN) | payer MEDICARE, SELFPAY ==
--- NOTE | 2022-08-28 | ECG_ITS ---
Test Reason : MEDICAL CLEARANCE Blood Pressure : / mmHG Vent. Rate : 056 BPM Atrial Rate : 056 BPM P-R Int : 146 ms QRS Dur : 088 ms QT Int : 418 ms P-R-T Axes : 037 -04 028 degrees QTc Int : 403 ms Sinus bradycardia Minimal voltage criteria for LVH, may be normal variant ( R in aVL ) Nonspecific ST and T wave abnormality Abnormal ECG When compared with ECG of 10-MAR-2022 14:24, No significant change was found Referred By: Pushpa Avila Electronically Signed By:ANDRES GUZMÁN MD
--- NOTE | ~2022-08-28 | CT_ITS ---
EXAMINATION: CT HEAD WITHOUT CONTRAST CLINICAL INFORMATION: Fall. COMPARISON: Head CT from 12/17/2020. TECHNIQUE: Contiguous axial imaging was performed from the skullbase to vertex without intravenous administration of contrast. This CT examination was performed using dose optimization techniques as appropriate, variously including the following: *Automated exposure control *Adjustment of mA and/or kV according to patient size (this includes techniques or standardized protocols for targeted exams where dose is matched to indication/reason for exam; i.e. extremities or head) *Use of iterative reconstruction technique DLP: 707 mGy-cm. FINDINGS: There is no evidence of acute intracranial hemorrhage or territorial infarction. No abnormal mass effect or midline shift is seen. Danielson to white matter differentiation is well preserved. No extra-axial fluid collections are identified. The ventricles are normal in size. There is no abnormal attenuation within the brain parenchyma. The osseous structures and soft tissues are normal. The mastoid air cells and visualized portions of the paranasal sinuses are well aerated. CT/CT head/brain wo IV con IMPRESSION: No acute intracranial pathology.
--- NOTE | ~2022-08-28 | CT_ITS ---
EXAMINATION: CT head/brain wo IV con CLINICAL INFORMATION: Reason for Exam s/p fall this evening COMPARISON: CT head without contrast 09/04/2022 TECHNIQUE: Contiguous axial imaging was performed from the skull base to vertex without intravenous contrast. Sagittal and coronal reformatted images were obtained. This CT examination was performed using dose optimization techniques as appropriate, variously including the following: * Automated exposure control * Adjustment of mA and/or kV according to patient size (this includes techniques or standardized protocols for targeted exams where dose is matched to indication/reason for exam; i.e. extremities or head) Use of iterative reconstruction technique DLP: 657 mGy-cm FINDINGS: No acute osseous or soft tissue abnormality. The mastoid air cells and visualized portions of the paranasal sinuses are well aerated. There is no evidence of acute intracranial hemorrhage or territorial infarction. No abnormal mass effect or midline shift is seen. Danielson to white matter differentiation is well preserved. No extra-axial fluid collections are identified. No hydrocephalus. No significant volume loss. There is no abnormal attenuation within the brain parenchyma. CT/CT head/brain wo IV con IMPRESSION: No acute intracranial abnormality including hemorrhage, mass effect, hydrocephalus, or acute territorial edematous infarction.
--- NOTE | ~2022-08-28 | XR_ITS ---
EXAMINATION: XR ABDOMEN KUB CLINICAL INDICATION: Fall COMPARISON: Abdominal radiographs 01/01/2020 TECHNIQUE: AP view of the abdomen. FINDINGS: Small to moderate amount of formed stool in the nondilated colon. Mild gaseous distention of the sigmoid. No dilated air-filled bowel loops. No bowel wall thickening. No gross large volume free air. No fractures identified. Mild S-shaped curvature of the thoracolumbar spine with multilevel degenerative disc disease. XR/XR KUB IMPRESSION: 1. Nonobstructive bowel gas pattern. 2. No fracture identified within the limitations of this exam.
--- NOTE | ~2022-08-28 | XR_ITS ---
EXAMINATION: XR knee RT 4V CLINICAL INFORMATION: Reason for Exam s/p fall this evening, pain COMPARISON: None. TECHNIQUE: Four views of the knee FINDINGS: No acute fracture or dislocation. Status post total knee arthroplasty in anatomic alignment. No evidence of hardware fracture or complication. No joint effusion or soft tissue abnormality. XR/XR knee RT 4V IMPRESSION: No acute osseous abnormality.
[2022-08-28 04:00] VITALS: BP 114/52; PULSE 60; RESP 19; TEMP 37.1; O2SAT 93; BMI 41.1
[2022-08-28 04:05] VITALS: BP 114/52; PULSE 60; RESP 19; TEMP 37.1; O2SAT 93
--- NOTE | 2022-08-28 04:46 | ED.PSYCH ---
HPI - Psych General Chief Complaint: Psychiatric Symptoms Stated Complaint: SI with plan Time Seen by Provider: 08/28/22 04:45 Source: patient Mode of arrival: ambulatory Limitations: no limitations History of Present Illness HPI Narrative: Patient history of hypertension, PTSD, major depression status post ECT treatment and TMS treatments in the past been feeling suicidal lately with no hope with the plan to cut herself no hallucination no delusion denies any specific reason to be in feeling more suicidal patient denies any precipitating factor Related Data Home Medications Medication Instructions Recorded Confirmed cyanocobalamin (vitamin B-12) 1 tab PO DAILY 12/14/20 08/28/22 1,000 mcg tablet propranolol 20 mg tablet 20 mg PO TID 03/10/22 08/28/22 atorvastatin 10 mg tablet 2 tab PO BEDTIME 08/28/22 08/28/22 divalproex 500 mg tablet,delayed 1,000 mg PO BEDTIME 08/28/22 08/28/22 release fluoxetine 20 mg capsule 4 cap PO QAM 08/28/22 08/28/22 fluticasone 100 mcg-salmeterol 50 1 puff inhalation BID 08/28/22 08/28/22 mcg/dose blistr powdr for inhalation (Minnie Inhub) fluticasone propionate 50 intranasal 08/28/22 mcg/actuation nasal spray,suspension furosemide 20 mg tablet 0.5 tab PO DAILY 08/28/22 08/28/22 loratadine 10 mg tablet 1 tab PO DAILY 08/28/22 08/28/22 Previous Rx's Medication Instructions Recorded diazepam 10 mg tablet 10 mg PO BEDTIME 30 days #30 tabs 11/17/21 diazepam 5 mg tablet 5 mg PO BID 30 days #60 tabs 11/17/21 gabapentin 400 mg capsule 1 cap PO TID 30 days #90 caps 11/17/21 lorazepam 1 mg tablet 1 mg PO TID PRN Anxiety 30 days 11/17/21 #90 tabs methylphenidate HCl 20 mg tablet 1 tab PO TID@0800,1200,1600 30 11/17/21 days #90 tabs quetiapine 100 mg tablet 100 mg PO BEDTIME 30 days #30 tabs 11/17/21 quetiapine 25 mg tablet 1 tab PO BID 30 days #60 tabs 11/17/21 Allergies Allergy/AdvReac Type Severity Reaction Status Date / Time ampicillin [AMPICILLIN] Allergy Unknown ERYTHEMA Verified 08/28/22 05:31 NODOSUM (LEG SWELLING) droperidol [From INAPSINE] Allergy Unknown SEIZURES Verified 08/28/22 05:31 oxycodone [From PERCOCET] Allergy Unknown DIFFICULTY Verified 08/28/22 05:31 BREATHING erythromycin base AdvReac Unknown STOMACH Verified 08/28/22 05:31 [ERYTHROMYCIN BASE] UPSET Fish Containing Products AdvReac Unknown NAUSEA Verified 08/28/22 05:31 trazodone [TRAZODONE] AdvReac Unknown UNKNOWN Verified 08/28/22 05:31 Erythromycin Allergy Unknown Unknown Uncoded 08/28/22 05:31 Inapsine Allergy Unknown Unknown Uncoded 08/28/22 05:31 Review of Systems Review of Systems: Yes all other systems are reviewed and are negative [facility] Past Medical History Medical History Anxiety Borderline personality disorder High cholesterol HTN (hypertension) Major depression OCD (obsessive compulsive disorder) PTSD (post-traumatic stress disorder) Social History Social History Household Members: Spouse Housing: House Housing Other:: Pt lives with in [place]; unsure if home or apartment. Do you presently have visiting nurse or other home services: No Unable to assess alcohol history related to: Unknown Alcohol intake: never Patient Tobacco Use Status: Never used Tobacco e-Cigarette/Vaping Use: Never Used Use of substances other than those prescribed or required for medical reasons: No Advance Directives: No service: No Sexual orientation: Straight/Heterosexual Physical Exam Vital Signs: Vital Signs: Last Vital Signs Temp 97.2 F 08/28/22 05:59 Pulse 57 08/28/22 05:59 Resp 16 08/28/22 05:59 BP 99/54 L 08/28/22 05:59 Pulse Ox 97 08/28/22 05:59 O2 Del Method 08/28/22 05:59 O2 Flow Rate 2 08/28/22 05:59 Oxygen Flow Rate 2 08/28/22 04:00 BMI result Body Mass Index 41.1 Appearance: Alert. Oriented X3. No acute distress. Eyes: PERRLA, No Nystagmus ENT: Pharynx normal. Oral Mucosa moist Neck: Normal inspection. Neck supple. CVS: Normal heart rate and rhythm. Pulses normal. Respiratory: No respiratory distress. Equal air entry bilateral, no wheezing/rales/rhonchi Abdomen: Soft and nontender. Bowel sounds are present, no mass palpable, no CVA tenderness Skin: Skin warm and dry. Normal skin color. Normal skin turgor. Extremities: No lower extremity edema. No calf tenderness psych: Depressed suicidal with a plan no HI no hallucination/ delusions Neuro: Oriented X 3. No motor deficit. No sensory deficit.No cerebellar signs , cranial nerves II-XII intact MDM - Psych MDM Narrative Medical decision making narrative: Patient with major depression with suicidal ideation get N consult for possible inpatient have Differential Diagnosis Differential diagnosis: Likely suicidal ideation, bipolar disorder and depression Lab Data Attestation: I reviewed the patient's lab results. Result diagrams: 08/28/22 05:54 08/28/22 05:54 Labs: Lab Results 08/28/22 08/28/22 Range/Units 03:45 05:54 WBC 10.5 (4.8-10.8) X10*3/uL RBC 4.40 (4.20-5.50) X10*6/uL Hgb 13.6 (12.0-16.0) g/dl Hct 42.4 (37.0-47.0) % MCV 96.4 (80.0-98.0) fL MCH 30.9 (27.0-33.0) pg MCHC 32.1 (31.0-35.0) g/dl RDW 14.5 (11.0-16.0) % Plt Count 146 L (160-400) X10*3/uL MPV 9.0 L (9.4-12.3) fL Immature Gran % (Auto) 1.1 H (0.0-0.4) % Neut % (Auto) 61.0 (45-73) % Lymph % (Auto) 27.3 (20-40) % [place] % (Auto) 9.0 (2-11) % Eos % (Auto) 1.2 (0-4) % Baso % (Auto) 0.4 (0-2) % Lymph # (Auto) 2.9 (1.2-4.9) X10*3/uL [place] # (Auto) 0.9 (0.1-1.2) X10*3/uL Eos # (Auto) 0.1 (0.0-0.4) X10*3/uL Baso # (Auto) 0.0 (0.0-0.2) X10*3/uL Abs Immat Gran (auto) 0.12 H (0.00-0.03) X10*3/uL Absolute Neuts (auto) 6.4 (2.0-8.3) x10*3/uL Absolute Nucleated RBC 0.000 (0.0-0.012) X10*3/uL Nucleated RBC % (auto) 0.0 (0.0-0.2) /100WBC Urine Color Yellow Urine Appearance Clear Urine pH 5.5 (5.0-9.0) Ur Specific [place] 1.025 (1.005-1.025) Urine Protein Negative (Neg-Trace) mg/dL Urine Glucose (UA) Negative (Negative) mg/dL Urine Ketones Trace (Negative) mg/dL Urine Blood Negative (Negative) Urine Nitrite Negative (Negative) Ur Leukocyte Esterase Small (1+) H (Negative) Discharge Plan Discharge Clinical Impression: Major depression, Suicidal ideation Patient Disposition: Still a Patient Prescriptions: No Action cyanocobalamin (vitamin B-12) 1,000 mcg tablet 1 tab PO DAILY lorazepam 1 mg Tablet 1 mg PO TID PRN (Reason: Anxiety) 30 Days Qty: 90 0RF quetiapine 25 mg tablet 1 tab PO BID 30 Days Qty: 60 0RF methylphenidate HCl 20 mg tablet 1 tab PO TID@0800,1200,1600 30 Days Qty: 90 0RF gabapentin 400 mg capsule 1 cap PO TID 30 Days Qty: 90 0RF quetiapine 100 mg tablet 100 mg PO BEDTIME 30 Days Qty: 30 0RF diazepam 10 mg tablet 10 mg PO BEDTIME 30 Days Qty: 30 0RF diazepam 5 mg tablet 5 mg PO BID 30 Days Qty: 60 0RF propranolol 20 mg tablet 20 mg PO TID Protocol: Hold for SBP/HR < HOLD for SBP < : 90 HOLD for HR < : 60 divalproex 500 mg tablet,delayed release (DR/EC) 1,000 mg PO BEDTIME fluoxetine 20 mg capsule 4 cap PO QAM atorvastatin 10 mg tablet 2 tab PO BEDTIME furosemide 20 mg tablet 0.5 tab PO DAILY fluticasone propion-salmeterol [Wixela Inhub] 100-50 mcg/dose blister with device 1 puff INHALATION BID fluticasone propionate 50 mcg/actuation spray,suspension intranasal loratadine 10 mg tablet 1 tab PO DAILY
--- NOTE | 2022-08-28 05:13 | PC.NURSE ---
[facility] referral completed at this time.
[2022-08-28 05:59] VITALS: BP 99/54; PULSE 57; RESP 16; TEMP 36.2; O2SAT 97
[2022-08-28 05:59] LABS: Basophils Percent Auto 0.4 % (0-2); Eosinophils Absolute Auto 0.1 X10*3/uL (0.0-0.4); Eosinophils Percent Auto 1.2 % (0-4); Hematocrit 42.4 % (37.0-47.0); Hemoglobin 13.6 g/dl (12.0-16.0); Imm Gran Abs Auto 0.12 X10*3/uL (0.00-0.03); Imm Gran Pct Auto 1.1 % (0.0-0.4); Lymphocytes Absolute Auto 2.9 X10*3/uL (1.2-4.9); Lymphocytes Percent Auto 27.3 % (20-40); MANUAL DIFF FLAG NO; Mean Corpuscular HGB Conc 32.1 g/dl (31.0-35.0); Mean Corpuscular Hemoglobin 30.9 pg (27.0-33.0); Mean Corpuscular Volume 96.4 fL (80.0-98.0); Monocytes Absolute Auto 0.9 X10*3/uL (0.1-1.2); Neutrophils Absolute Auto 6.4 x10*3/uL (2.0-8.3); Platelet Count 146 X10*3/uL (160-400); Red Cell Distribution Width 14.5 % (11.0-16.0); White Blood Count 10.5 X10*3/uL (4.8-10.8)
--- NOTE | 2022-08-28 06:00 | PC.NURSE ---
PT LABS DRAWN ,COVID SWAB AND URINE SEND TO LAB ,O2 TANK CHANGE V,VS TAKEN ,PATIENT HAD A CUP OF COFFEE AND A GLASS OF WATER ,SITTER AT BEDSIDE .
[2022-08-28 06:04] LABS: Appearance Urine Clear; Color Urine Yellow; Glucose Urine UA Negative (Negative); Leukocyte Esterase Urine Small (1+) (Negative); Nitrite Urine Negative (Negative); PH 5.5 (5.0-9.0); Specific Gravity - Urine 1.025 (1.005-1.025); UMIC TRIGGER UACC YES; Urine Blood Negative (Negative); Urine Ketones Trace mg/dL (Negative); Urine Protein Negative (Neg-Trace)
[2022-08-28 06:12] LABS: COVID-19 Test Negative (Negative)
[2022-08-28 06:15] LABS: Bacteria Urine None Seen (None Seen); Hyaline Casts Urine 0-2 /LPF (0-2); UACC Culture Trigger YES; WBC Urine 0-5 /HPF (0-5)
--- NOTE | 2022-08-28 06:15 | PC.NURSE ---
Med Rec completed by SAHIL
[2022-08-28 06:18] LABS: Alanine Aminotransferase 7 U/L (0-31); Albumin Level 3.5 g/dL (3.5-5.0); Alkaline Phosphatase 54 U/L (39-117); Anion Gap 15 (12-20); Aspartate Amino Transferase 15 U/L (5-31); Bilirubin Total 0.2 mg/dL (0.0-1.0); Blood Urea Nitrogen 18 mg/dL (9-16); Calcium 8.7 mg/dL (8.4-10.2); Carbon Dioxide 33 mmol/L (22-29); Chloride 96 mmol/L (96-108); Estimated Glomerular Filt Rate 55; Glucose Random 96 mg/dL (60-115); Potassium 4.8 mmol/L (3.3-5.1); Sodium 139 mmol/L (135-145); Total Protein 6.1 g/dL (6.5-8.0)
[2022-08-28 06:22] LABS: Valproate 99.3 mcg/mL (50.0-100.0)
[2022-08-28 06:29] LABS: Amphetamine Screen Urine Not Detected (Not Detect); Barbiturates, Urine Not Detected (Not Detect); Benzodiazepines Screen Urine POSITIVE (Not Detect); Cannabinoid Screen Urine Not Detected (Not Detect); Cocaine Screen Urine Not Detected (Not Detect); Fentanyl, urine Not Detected (Not Detect); Opiate Screen Urine Not Detected (Not Detect); Phencyclidine Screen Urine Not Detected (Not Detect)
--- NOTE | 2022-08-28 09:58 | PC.NURSE ---
Ildefonso from [facility] at bedside for consult . patient aware of plan of care .
--- NOTE | 2022-08-28 11:22 | PHA.MEDREC ---
Pharmacy Consult ? Medication Reconciliation Pharmacy has completed the medication reconciliation. Reviewed med rec done by nursing
[2022-08-28] MEDS: QUEtiapine Fumarate 25 MG TABLET PO (11:47)
[2022-08-28] MEDS: Propranolol HCL 20 MG TABLET PO ×3 (11:48→21:40)
[2022-08-28] MEDS: diazePAM 5 MG TABLET PO (11:49)
[2022-08-28] MEDS: Loratadine 10 MG TABLET PO (11:49)
[2022-08-28] MEDS: Gabapentin 400 MG CAPSULE PO ×3 (11:49→21:40)
[2022-08-28] MEDS: FLUoxetine HCl 20 MG CAPSULE 80 MG PO (11:49)
[2022-08-28] MEDS: Cyanocobalamin (Vitamin B-12) 1,000 MCG TABLET 1000 MCG PO (11:49)
[2022-08-28] MEDS: Furosemide 20 MG TABLET 10 MG PO (11:50)
[2022-08-28] MEDS: Methylphenidate HCl 10 MG TABLET 20 MG PO (14:38)
[2022-08-28 18:59] VITALS: BP 118/70; PULSE 68; RESP 16; TEMP 36.7; O2SAT 92
[2022-08-28 20:04] VITALS: BP 136/65; PULSE 62; RESP 18; TEMP 36.2; O2SAT 92
[2022-08-28] MEDS: Atorvastatin Calcium 20 MG TABLET PO (21:40)
[2022-08-28] MEDS: QUEtiapine Fumarate 100 MG TABLET PO (22:15)
[2022-08-28] MEDS: Divalproex Sodium 500 MG TABLET.DR 1000 MG PO (22:16)
[2022-08-28] MEDS: diazePAM 5 MG TABLET 10 MG PO (22:16)
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
[2022-08-29 00:56] VITALS: O2SAT 93
--- NOTE | 2022-08-29 02:59 | PC.NURSE ---
Pt education provided on importance of O2 2L NC use at HS with 1:1. Pt is compliant. Oxygen is 93% on 2L NC. Respirations even unlabored. No SOB/respiratory distress present
[2022-08-29 10:30] VITALS: BP 120/83; PULSE 60; RESP 20; TEMP 36.3; O2SAT 95
[2022-08-29] MEDS: FLUoxetine HCl 20 MG CAPSULE 80 MG PO (10:33)
[2022-08-29] MEDS: Methylphenidate HCl 10 MG TABLET 20 MG PO ×3 (10:34→17:16)
[2022-08-29] MEDS: Propranolol HCL 20 MG TABLET PO ×3 (10:35→22:33)
[2022-08-29] MEDS: QUEtiapine Fumarate 25 MG TABLET PO (10:35)
[2022-08-29] MEDS: Gabapentin 400 MG CAPSULE PO ×3 (10:35→22:34)
[2022-08-29] MEDS: Cyanocobalamin (Vitamin B-12) 1,000 MCG TABLET 1000 MCG PO (10:35)
[2022-08-29] MEDS: Loratadine 10 MG TABLET PO (10:36)
[2022-08-29] MEDS: diazePAM 5 MG TABLET PO (10:37)
[2022-08-29] MEDS: Furosemide 20 MG TABLET 10 MG PO (10:37)
[2022-08-29] MEDS: Acetaminophen 325 MG TABLET 650 MG PO ×2 (10:53→22:34)
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
[2022-08-29 18:00] VITALS: BP 118/61; PULSE 59; RESP 18; TEMP 36.2; O2SAT 94
[2022-08-29] MEDS: diazePAM 5 MG TABLET 10 MG PO (22:12)
[2022-08-29] MEDS: QUEtiapine Fumarate 100 MG TABLET PO (22:13)
[2022-08-29] MEDS: Divalproex Sodium 500 MG TABLET.DR 1000 MG PO (22:13)
[2022-08-29] MEDS: Atorvastatin Calcium 20 MG TABLET PO (22:13)
[2022-08-30 07:00] VITALS: BMI 40.7
[2022-08-30] MEDS: Cyanocobalamin (Vitamin B-12) 1,000 MCG TABLET 1000 MCG PO (10:06)
[2022-08-30] MEDS: Loratadine 10 MG TABLET PO (10:06)
[2022-08-30] MEDS: FLUoxetine HCl 20 MG CAPSULE 80 MG PO (10:06)
[2022-08-30] MEDS: QUEtiapine Fumarate 25 MG TABLET PO (10:08)
[2022-08-30] MEDS: Furosemide 20 MG TABLET 10 MG PO (10:08)
[2022-08-30 10:15] VITALS: BP 127/61; PULSE 62; RESP 14; TEMP 35.6; O2SAT 90
[2022-08-30] MEDS: Gabapentin 400 MG CAPSULE PO ×3 (10:18→22:02)
[2022-08-30] MEDS: Methylphenidate HCl 10 MG TABLET 20 MG PO ×2 (10:18→16:22)
[2022-08-30] MEDS: Propranolol HCL 20 MG TABLET PO ×3 (10:18→22:02)
--- NOTE | 2022-08-30 10:35 | P.PNPSI_ITS ---
Subjective Subjective Date of Service: 08/30/22 Reason For Visit: Si, depression Subjective Notes: Conditional Voluntary Interim History: The nursing staff reported the patient slept on one-to-one since she is using oxygen at night. She has been fully compliant with treatment and we needed to change the schedule of some of her medications. The psychiatric social worker supervisor will call her DBT therapist today and we will get more collateral. Yesterday I tried to contact Dr. Jaeger and left him a message to get information about her treatment options. On interview, we discussed her options and she is open to use levothyroxine as augmentation for depression. I explained her that also it will help her on her weight loss. Mental Status Exam Mental Status Exam Patient Appearance: Appropriate Patient Orientation: Person, Place and Situation Level of Consciousness: Awake Patient Behavior: Cooperative Mood Description: Depressed Affect Description: Constricted Patient Cognition Impaired: No Ability to Follow Directions: Good Speech Pattern: Clear Hallucinations: None Delusions: Not Present Thought Process: Linear Thought Content: positive for Circumstantial Judgement: Fair Diagnostics Vital Signs (24Hr): Vital Signs - 24 hr 08/29/22 18:00 Temperature 97.2 F Pulse Rate 59 Respiratory Rate 18 Blood Pressure 118/61 Pulse Oximetry 94 Oxygen Delivery Method Room Air BMI result Body Mass Index 41.1 Labs Results: 08/28/22 05:54 08/28/22 05:54 Medications Medications Current Medications Acetaminophen (Acetaminophen 325 Mg Tablet) 650 mg PO Q6H PRN PRN Reason: Headache/Pain Mild Scale (1-3) Last Admin: 08/29/22 22:34 Dose: 650 mg Al Hydroxide/Mg Hydroxide (Magnesium Hydrox/Alum Hydrox 30 Ml Oral.Susp) 30 ml PO Q6H PRN PRN Reason: Heartburn/Nausea Atorvastatin Calcium (Atorvastatin Calcium 20 Mg Tablet) 20 mg PO BEDTIME [facility] Last Admin: 08/29/22 22:13 Dose: 20 mg Cyanocobalamin (Cyanocobalamin (Vitamin B-12) 1,000 Mcg Tablet) 1,000 mcg PO DAILY [facility] Last Admin: 08/30/22 10:06 Dose: 1,000 mcg Diazepam (Diazepam 5 Mg Tablet) 10 mg PO BEDTIME [facility] Last Admin: 08/29/22 22:12 Dose: 10 mg Diazepam (Diazepam 5 Mg Tablet) 5 mg PO BID@0800,1500 [facility] Divalproex Sodium (Divalproex Sodium 500 Mg Tablet.Dr) 1,000 mg PO BEDTIME [facility] Last Admin: 08/29/22 22:13 Dose: 1,000 mg Fluoxetine HCl (Fluoxetine Hcl 20 Mg Capsule) 80 mg PO DAILY [facility] Last Admin: 08/30/22 10:06 Dose: 80 mg Fluticasone/Vilanterol (Fluticasone/Vilanterol 100/25 Blst.W.Dev) 1 puff INHALE RDAILY [facility] Last Admin: 08/30/22 10:11 Dose: Not Given Furosemide (Furosemide 20 Mg Tablet) 10 mg PO DAILY [facility]; Protocol Last Admin: 08/30/22 10:08 Dose: 10 mg Gabapentin (Gabapentin 400 Mg Capsule) 400 mg PO TID@0800,1330,2100 [facility] Last Admin: 08/30/22 10:18 Dose: 400 mg Hydroxyzine HCl (Hydroxyzine Hcl 25 Mg Tablet) 25 mg PO Q6H PRN PRN Reason: Anxiety Levothyroxine Sodium (Levothyroxine Sodium 25 Mcg Tablet) 25 mcg PO DAILY@0600 [facility] Loratadine (Loratadine 10 Mg Tablet) 10 mg PO DAILY [facility] Last Admin: 08/30/22 10:06 Dose: 10 mg Lorazepam (Lorazepam 1 Mg Tablet) 1 mg PO TID PRN PRN Reason: Anxiety Magnesium Hydroxide (Milk Of Magnesia 30 Ml Oral.Susp) 30 ml PO DAILY PRN PRN Reason: Constipation Methylphenidate HCl (Methylphenidate Hcl 10 Mg Tablet) 20 mg PO TID@0800,1330,1700 [facility] Last Admin: 08/30/22 10:18 Dose: 20 mg Propranolol HCl (Propranolol Hcl 20 Mg Tablet) 20 mg PO TID@0800,1330,2100 [facility]; Protocol Last Admin: 08/30/22 10:18 Dose: 20 mg Quetiapine Fumarate (Quetiapine Fumarate 25 Mg Tablet) 25 mg PO BID [facility] Last Admin: 08/30/22 10:08 Dose: 25 mg Quetiapine Fumarate (Quetiapine Fumarate 100 Mg Tablet) 100 mg PO BEDTIME [facility] Last Admin: 08/29/22 22:13 Dose: 100 mg Allergies Allergies Allergy/AdvReac Type Severity Reaction Status Date / Time ampicillin [AMPICILLIN] Allergy Unknown ERYTHEMA Verified 08/28/22 05:31 NODOSUM (LEG SWELLING) droperidol [From INAPSINE] Allergy Unknown SEIZURES Verified 08/28/22 05:31 oxycodone [From PERCOCET] Allergy Unknown DIFFICULTY Verified 08/28/22 05:31 BREATHING erythromycin base AdvReac Unknown STOMACH Verified 08/28/22 05:31 [ERYTHROMYCIN BASE] UPSET Fish Containing Products AdvReac Unknown NAUSEA Verified 08/28/22 05:31 trazodone [TRAZODONE] AdvReac Unknown UNKNOWN Verified 08/28/22 05:31 Erythromycin Allergy Unknown Unknown Uncoded 08/28/22 05:31 Inapsine Allergy Unknown Unknown Uncoded 08/28/22 05:31 Assessment & Plan Assessment & Plan (1) Borderline personality disorder: Status: Acute Code(s): F60.3 - Borderline personality disorder (2) Bipolar 1 disorder: Status: Acute Code(s): F31.9 - Bipolar disorder, unspecified (3) OCD (obsessive compulsive disorder): Status: Acute Code(s): F42.9 - Obsessive-compulsive disorder, unspecified (4) PTSD (post-traumatic stress disorder): Status: Acute Code(s): F43.10 - Post-traumatic stress disorder, unspecified Plan The patient is an elderly female, with bipolar disorder, borderline personality disorder and PTSD admitted for exacerbation of dysphoria and suicidal thoughts. The patient is very well known by this team since she had been admitted twice in the last year for similar presentation. Plan 1. Gather collateral information. I will contact her outpatient psychiatrist for further details. 2. Continue with current treatment. 3. Continue medical workout. 4. Reassessment with results. 5. Start Synthroid 25 mcg daily as augmentation for depression I spent ___20___ minutes with the patient and/or on the patient floor today, greater than?50% of which was spent counseling/coordinating care. Reason for contiued inpatient stay Substantial Risk for: inability to function, rapid decompensation and med/psych decompensation
[2022-08-30] MEDS: diazePAM 5 MG TABLET PO (14:32)
[2022-08-30 14:36] VITALS: BP 108/55; PULSE 61
[2022-08-30] MEDS: Loperamide HCl 2 MG CAPSULE 4 MG PO (16:22)
[2022-08-30 20:00] VITALS: BP 126/60; PULSE 60; RESP 16; TEMP 36.2; O2SAT 89
[2022-08-30 22:00] VITALS: O2SAT 93
[2022-08-30] MEDS: Divalproex Sodium 500 MG TABLET.DR 1000 MG PO (22:01)
[2022-08-30] MEDS: QUEtiapine Fumarate 100 MG TABLET PO (22:01)
[2022-08-30] MEDS: Atorvastatin Calcium 20 MG TABLET PO (22:02)
[2022-08-30] MEDS: diazePAM 5 MG TABLET 10 MG PO (22:02)
[2022-08-31] MEDS: FLUoxetine HCl 20 MG CAPSULE 80 MG PO (10:14)
[2022-08-31] MEDS: Methylphenidate HCl 10 MG TABLET 20 MG PO ×2 (10:17→14:04)
[2022-08-31] MEDS: diazePAM 5 MG TABLET PO ×2 (10:17→14:04)
[2022-08-31] MEDS: Gabapentin 400 MG CAPSULE PO ×3 (10:17→22:02)
[2022-08-31] MEDS: Propranolol HCL 20 MG TABLET PO ×3 (10:17→22:01)
[2022-08-31] MEDS: Cyanocobalamin (Vitamin B-12) 1,000 MCG TABLET 1000 MCG PO (10:18)
[2022-08-31] MEDS: QUEtiapine Fumarate 25 MG TABLET PO ×2 (10:18→14:10)
[2022-08-31] MEDS: Loratadine 10 MG TABLET PO (10:18)
[2022-08-31] MEDS: Furosemide 20 MG TABLET 10 MG PO (10:19)
[2022-08-31 10:30] VITALS: BP 119/58; PULSE 60; RESP 18; TEMP 35.9; O2SAT 87
--- NOTE | 2022-08-31 13:40 | P.PNPSI_ITS ---
Subjective Subjective Date of Service: 08/31/22 Reason For Visit: Si, depression Subjective Notes: Conditional Voluntary Interim History: The nursing staff reported the patient was on one-to-one while using her oxygen. The occupational therapist reported that she did not want to participating groups at this moment. There has been some issues regarding the use of her hypo that she use for relaxation. The occupational therapist also perform her [place] test and she scored 28/30 and her [place] test was 5.0. Today in the morning she refused her levothyroxine sings she was expecting to have blood work. Later the nurse found her with a back over her face. She was upset because she did not her head blood work today. I explained her that we do not need blood work at this moment we set some boundaries and we discussed the case with the team. We are not going to put her on one-to-one because she wants the attention so we will put her on 5 minutes check and will remove all her clothing from the room for safety. We received the CT scan results from [facility], she had CT scan of the thorax because she was complaining of shortness of breath, apparently she had COVID a few months ago and there were some nodules that resolved with the last CT scan of August 23. Mental Status Exam Mental Status Exam Patient Appearance: Well Grooomed Patient Orientation: Person Level of Consciousness: Awake Patient Behavior: Cooperative Mood Description: Withdrawn Affect Description: Constricted Patient Cognition Impaired: No Ability to Follow Directions: Good Speech Pattern: Clear Memory Description: Intact Hallucinations: None Delusions: Not Present Thought Process: Linear Thought Content: positive for Obsessional Thoughts and positive for Poverty of Content Judgement: Fair Diagnostics Vital Signs (24Hr): Vital Signs - 24 hr 08/30/22 14:36 08/30/22 20:00 08/30/22 22:00 Temperature 97.2 F Pulse Rate 61 60 Respiratory Rate 16 Blood Pressure 108/55 L 126/60 Pulse Oximetry 89 L 93 Oxygen Delivery Method Room Air Nasal Cannula Oxygen Flow Rate 2 08/31/22 10:30 Temperature 96.6 F L Pulse Rate 60 Respiratory Rate 18 Blood Pressure 119/58 L Pulse Oximetry 87 L Oxygen Delivery Method Room Air Oxygen Flow Rate BMI result Body Mass Index 40.7 Labs Results: 08/28/22 05:54 08/28/22 05:54 Medications Medications Current Medications Acetaminophen (Acetaminophen 325 Mg Tablet) 650 mg PO Q6H PRN PRN Reason: Headache/Pain Mild Scale (1-3) Last Admin: 08/29/22 22:34 Dose: 650 mg Al Hydroxide/Mg Hydroxide (Magnesium Hydrox/Alum Hydrox 30 Ml Oral.Susp) 30 ml PO Q6H PRN PRN Reason: Heartburn/Nausea Atorvastatin Calcium (Atorvastatin Calcium 20 Mg Tablet) 20 mg PO BEDTIME [facility] Last Admin: 08/30/22 22:02 Dose: 20 mg Cyanocobalamin (Cyanocobalamin (Vitamin B-12) 1,000 Mcg Tablet) 1,000 mcg PO DAILY [facility] Last Admin: 08/31/22 10:18 Dose: 1,000 mcg Diazepam (Diazepam 5 Mg Tablet) 10 mg PO BEDTIME [facility] Last Admin: 08/30/22 22:02 Dose: 10 mg Diazepam (Diazepam 5 Mg Tablet) 5 mg PO BID@0800,1500 [facility] Last Admin: 08/31/22 10:17 Dose: 5 mg Divalproex Sodium (Divalproex Sodium 500 Mg Tablet.Dr) 1,000 mg PO BEDTIME [facility] Last Admin: 08/30/22 22:01 Dose: 1,000 mg Fluoxetine HCl (Fluoxetine Hcl 20 Mg Capsule) 80 mg PO DAILY [facility] Last Admin: 08/31/22 10:14 Dose: 80 mg Fluticasone/Vilanterol (Fluticasone/Vilanterol 100/25 Blst.W.Dev) 1 puff INHALE RDAILY [facility] Last Admin: 08/31/22 10:20 Dose: Not Given Furosemide (Furosemide 20 Mg Tablet) 10 mg PO DAILY [facility]; Protocol Last Admin: 08/31/22 10:19 Dose: 10 mg Gabapentin (Gabapentin 400 Mg Capsule) 400 mg PO TID@0800,1330,2100 [facility] Last Admin: 08/31/22 10:17 Dose: 400 mg Hydroxyzine HCl (Hydroxyzine Hcl 25 Mg Tablet) 25 mg PO Q6H PRN PRN Reason: Anxiety Levothyroxine Sodium (Levothyroxine Sodium 25 Mcg Tablet) 25 mcg PO DAILY@0600 [facility] Last Admin: 08/31/22 07:08 Dose: Not Given Loperamide HCl (Loperamide Hcl 2 Mg Capsule) 4 mg PO Q4H PRN PRN Reason: Diarrhea Last Admin: 08/30/22 16:22 Dose: 4 mg Loratadine (Loratadine 10 Mg Tablet) 10 mg PO DAILY [facility] Last Admin: 08/31/22 10:18 Dose: 10 mg Lorazepam (Lorazepam 1 Mg Tablet) 1 mg PO TID PRN PRN Reason: Anxiety Magnesium Hydroxide (Milk Of Magnesia 30 Ml Oral.Susp) 30 ml PO DAILY PRN PRN Reason: Constipation Methylphenidate HCl (Methylphenidate Hcl 10 Mg Tablet) 20 mg PO TID@0800,1330, 1700 [facility] Last Admin: 08/31/22 10:17 Dose: 20 mg Propranolol HCl (Propranolol Hcl 20 Mg Tablet) 20 mg PO TID@0800,1330,2100 [facility]; Protocol Last Admin: 08/31/22 10:17 Dose: 20 mg Quetiapine Fumarate (Quetiapine Fumarate 25 Mg Tablet) 25 mg PO BID [facility] Last Admin: 08/31/22 10:18 Dose: 25 mg Quetiapine Fumarate (Quetiapine Fumarate 100 Mg Tablet) 100 mg PO BEDTIME [facility] Last Admin: 08/30/22 22:01 Dose: 100 mg Allergies Allergies Allergy/AdvReac Type Severity Reaction Status Date / Time ampicillin [AMPICILLIN] Allergy Unknown ERYTHEMA Verified 08/28/22 05:31 NODOSUM (LEG SWELLING) droperidol [From INAPSINE] Allergy Unknown SEIZURES Verified 08/28/22 05:31 oxycodone [From PERCOCET] Allergy Unknown DIFFICULTY Verified 08/28/22 05:31 BREATHING erythromycin base AdvReac Unknown STOMACH Verified 08/28/22 05:31 [ERYTHROMYCIN BASE] UPSET Fish Containing Products AdvReac Unknown NAUSEA Verified 08/28/22 05:31 trazodone [TRAZODONE] AdvReac Unknown UNKNOWN Verified 08/28/22 05:31 Erythromycin Allergy Unknown Unknown Uncoded 08/28/22 05:31 Inapsine Allergy Unknown Unknown Uncoded 08/28/22 05:31 Assessment & Plan Assessment & Plan (1) Borderline personality disorder: Status: Acute Code(s): F60.3 - Borderline personality disorder (2) Bipolar 1 disorder: Status: Acute Code(s): F31.9 - Bipolar disorder, unspecified (3) OCD (obsessive compulsive disorder): Status: Acute Code(s): F42.9 - Obsessive-compulsive disorder, unspecified (4) PTSD (post-traumatic stress disorder): Status: Acute Code(s): F43.10 - Post-traumatic stress disorder, unspecified Plan The patient is an elderly female, with bipolar disorder, borderline personality disorder and PTSD admitted for exacerbation of dysphoria and suicidal thoughts. The patient is very well known by this team since she had been admitted twice in the last year for similar presentation. Plan 1. Gather collateral information. I will contact her outpatient psychiatrist for further details. 2. Continue with current treatment. 3. Continue medical workout. 4. Reassessment with results. 5. Start Synthroid 25 mcg daily as augmentation for depression 6. Keep her on 5 minutes check and reassess in 24 hours I spent ___20___ minutes with the patient and/or on the patient floor today, greater than?50% of which was spent counseling/coordinating care. Reason for contiued inpatient stay Substantial Risk for: inability to function, rapid decompensation and med/psych decompensation
[2022-08-31] MEDS: Fluticasone Propionate Nasal 16 GM SPRAY 1 SPRAY NOSTRIL-B (16:43)
[2022-08-31 20:00] VITALS: BP 119/58; PULSE 61; RESP 16; TEMP 36.1; O2SAT 92
[2022-08-31] MEDS: Divalproex Sodium 500 MG TABLET.DR 1000 MG PO (21:58)
[2022-08-31] MEDS: diazePAM 5 MG TABLET 10 MG PO (21:58)
[2022-08-31] MEDS: QUEtiapine Fumarate 100 MG TABLET PO (21:58)
[2022-08-31] MEDS: Atorvastatin Calcium 20 MG TABLET PO (21:58)
[2022-09-01] MEDS: Levothyroxine Sodium 25 MCG TABLET PO (06:19)
[2022-09-01 07:30] VITALS: BP 120/76; PULSE 89; RESP 16; TEMP 36.7; O2SAT 94
[2022-09-01] MEDS: QUEtiapine Fumarate 25 MG TABLET PO ×2 (10:11→15:38)
[2022-09-01] MEDS: FLUoxetine HCl 20 MG CAPSULE 80 MG PO (10:11)
[2022-09-01] MEDS: Cyanocobalamin (Vitamin B-12) 1,000 MCG TABLET 1000 MCG PO (10:12)
[2022-09-01] MEDS: Loratadine 10 MG TABLET PO (10:12)
[2022-09-01] MEDS: diazePAM 5 MG TABLET PO ×2 (10:18→15:38)
[2022-09-01] MEDS: Furosemide 20 MG TABLET 10 MG PO (10:21)
[2022-09-01] MEDS: Methylphenidate HCl 10 MG TABLET 20 MG PO ×2 (10:44→13:43)
[2022-09-01] MEDS: Fluticasone Propionate Nasal 16 GM SPRAY 1 SPRAY NOSTRIL-B ×2 (10:45→22:17)
[2022-09-01] MEDS: Propranolol HCL 20 MG TABLET PO ×3 (10:45→22:11)
[2022-09-01] MEDS: Gabapentin 400 MG CAPSULE PO ×3 (10:51→22:11)
--- NOTE | 2022-09-01 16:56 | HO.PSYCHPN ---
Subjective Subjective Date of Service: 09/01/22 Reason For Visit: Si, depression Interim History: Patient seen and discussed. Patient reports she is feeling well. She says she was upset that her room was cleared from belongings due to her suicidal threats. Patient has her stuff back now. She then started saying that she doesn't want to tell the staff because she doesn't want her stuff removed. She went on talking about her future and what she plans to do upon discharge, namely, doing TMS to get better and continuing OP DBT. She reported her medications at home were somewhat different than here. Seroquel is dosed 25 mg BID (AM and afternoon) and 100 mg HS. Here she is getting 25 mg AM and 125 mg HS. Review of Systems Review of Systems Yes all other systems are reviewed and are negative Mental Status Exam Mental Status Exam Patient Appearance: Well Grooomed Patient Orientation: Person Level of Consciousness: Awake Patient Behavior: Cooperative Mood Description: Withdrawn Affect Description: Constricted Patient Cognition Impaired: No Ability to Follow Directions: Good Speech Pattern: Clear Memory Description: Intact Thought Content: positive for Intact Depressive Symptoms: Thoughts of /Suicide (in the same time, future oriented and planning for post DC. Says she has had thoughts for many years. No intent of harming self. ) Judgement: Fair Diagnostics Vital Signs (24Hr): Vital Signs - 24 hr 08/31/22 20:00 Temperature 97 F Pulse Rate 61 Respiratory Rate 16 Blood Pressure 119/58 L Pulse Oximetry 92 Oxygen Delivery Method Room Air BMI result Body Mass Index 40.7 Labs Results: 08/28/22 05:54 08/28/22 05:54 Medications Medications Current Medications Acetaminophen (Acetaminophen 325 Mg Tablet) 650 mg PO Q6H PRN PRN Reason: Headache/Pain Mild Scale (1-3) Last Admin: 08/29/22 22:34 Dose: 650 mg Al Hydroxide/Mg Hydroxide (Magnesium Hydrox/Alum Hydrox 30 Ml Oral.Susp) 30 ml PO Q6H PRN PRN Reason: Heartburn/Nausea Atorvastatin Calcium (Atorvastatin Calcium 20 Mg Tablet) 20 mg PO BEDTIME [facility] Last Admin: 08/31/22 21:58 Dose: 20 mg Cyanocobalamin (Cyanocobalamin (Vitamin B-12) 1,000 Mcg Tablet) 1,000 mcg PO DAILY [facility] Last Admin: 09/01/22 10:12 Dose: 1,000 mcg Diazepam (Diazepam 5 Mg Tablet) 10 mg PO BEDTIME [facility] Last Admin: 08/31/22 21:58 Dose: 10 mg Diazepam (Diazepam 5 Mg Tablet) 5 mg PO BID@0800,1500 [facility] Last Admin: 09/01/22 15:38 Dose: 5 mg Divalproex Sodium (Divalproex Sodium 500 Mg Tablet.Dr) 1,000 mg PO BEDTIME [facility] Last Admin: 08/31/22 21:58 Dose: 1,000 mg Fluoxetine HCl (Fluoxetine Hcl 20 Mg Capsule) 80 mg PO DAILY [facility] Last Admin: 09/01/22 10:11 Dose: 80 mg Fluticasone Propionate (Fluticasone Propionate Nasal 16 Gm [place]) 1 spray NOSTRIL-B BID [facility] Last Admin: 09/01/22 10:45 Dose: 1 spray Fluticasone/Vilanterol (Fluticasone/Vilanterol 100/25 Blst.W.Dev) 1 puff INHALE RDAILY [facility] Last Admin: 09/01/22 10:52 Dose: Not Given Furosemide (Furosemide 20 Mg Tablet) 10 mg PO DAILY [facility]; Protocol Last Admin: 09/01/22 10:21 Dose: 10 mg Gabapentin (Gabapentin 400 Mg Capsule) 400 mg PO TID@0800,1330,2100 [facility] Last Admin: 09/01/22 13:43 Dose: 400 mg Hydroxyzine HCl (Hydroxyzine Hcl 25 Mg Tablet) 25 mg PO Q6H PRN PRN Reason: Anxiety Levothyroxine Sodium (Levothyroxine Sodium 25 Mcg Tablet) 25 mcg PO DAILY@0600 [facility] Last Admin: 09/01/22 06:19 Dose: 25 mcg Loperamide HCl (Loperamide Hcl 2 Mg Capsule) 4 mg PO Q4H PRN PRN Reason: Diarrhea Last Admin: 08/30/22 16:22 Dose: 4 mg Loratadine (Loratadine 10 Mg Tablet) 10 mg PO DAILY [facility] Last Admin: 09/01/22 10:12 Dose: 10 mg Lorazepam (Lorazepam 1 Mg Tablet) 1 mg PO TID PRN PRN Reason: Anxiety Magnesium Hydroxide (Milk Of Magnesia 30 Ml Oral.Susp) 30 ml PO DAILY PRN PRN Reason: Constipation Methylphenidate HCl (Methylphenidate Hcl 10 Mg Tablet) 20 mg PO TID@0800,1330,1700 [facility] Last Admin: 09/01/22 16:47 Dose: Not Given Propranolol HCl (Propranolol Hcl 20 Mg Tablet) 20 mg PO TID@0800,1330,2100 [facility]; Protocol Last Admin: 09/01/22 13:44 Dose: 20 mg Quetiapine Fumarate (Quetiapine Fumarate 100 Mg Tablet) 100 mg PO BEDTIME [facility] Last Admin: 08/31/22 21:58 Dose: 100 mg Quetiapine Fumarate (Quetiapine Fumarate 25 Mg Tablet) 25 mg PO BID@0800,1500 [facility] Last Admin: 09/01/22 15:38 Dose: 25 mg Allergies Allergies Allergy/AdvReac Type Severity Reaction Status Date / Time ampicillin [AMPICILLIN] Allergy Unknown ERYTHEMA Verified 08/28/22 05:31 NODOSUM (LEG SWELLING) droperidol [From INAPSINE] Allergy Unknown SEIZURES Verified 08/28/22 05:31 oxycodone [From PERCOCET] Allergy Unknown DIFFICULTY Verified 08/28/22 05:31 BREATHING erythromycin base AdvReac Unknown STOMACH Verified 08/28/22 05:31 [ERYTHROMYCIN BASE] UPSET Fish Containing Products AdvReac Unknown NAUSEA Verified 08/28/22 05:31 trazodone [TRAZODONE] AdvReac Unknown UNKNOWN Verified 08/28/22 05:31 Erythromycin Allergy Unknown Unknown Uncoded 08/28/22 05:31 Inapsine Allergy Unknown Unknown Uncoded 08/28/22 05:31 Assessment & Plan Assessment & Plan (1) Borderline personality disorder: Status: Acute Code(s): F60.3 - Borderline personality disorder (2) Bipolar 1 disorder: Status: Acute Code(s): F31.9 - Bipolar disorder, unspecified (3) OCD (obsessive compulsive disorder): Status: Acute Code(s): F42.9 - Obsessive-compulsive disorder, unspecified (4) PTSD (post-traumatic stress disorder): Status: Acute Code(s): F43.10 - Post-traumatic stress disorder, unspecified Plan The patient is an elderly female, with bipolar disorder, borderline personality disorder and PTSD admitted for exacerbation of dysphoria and suicidal thoughts. The patient is very well known by this team since she had been admitted twice in the last year for similar presentation. Plan 1. Gather collateral information. I will contact her outpatient psychiatrist for further details. 2. Continue with current treatment. 3. Continue medical workout. 4. Reassessment with results. 5. Start Synthroid 25 mcg daily as augmentation for depression 6. Keep her on 5 minutes check and reassess in 24 hours 09/01: Continue treatment plan. Will adjust Seroquel to her home dosing. I spent minutes with the patient and/or on the patient floor today, greater than?50% of which was spent counseling/coordinating care. Reason for contiued inpatient stay Substantial Risk for: harm to self and rapid decompensation
[2022-09-01 20:00] VITALS: BP 120/63; PULSE 59; RESP 20; TEMP 36.4; O2SAT 92
[2022-09-01] MEDS: diazePAM 5 MG TABLET 10 MG PO (22:08)
[2022-09-01] MEDS: Atorvastatin Calcium 20 MG TABLET PO (22:08)
[2022-09-01] MEDS: QUEtiapine Fumarate 100 MG TABLET PO (22:08)
[2022-09-01] MEDS: Divalproex Sodium 500 MG TABLET.DR 1000 MG PO (22:08)
[2022-09-02] MEDS: Levothyroxine Sodium 25 MCG TABLET PO (06:20)
[2022-09-02 07:45] VITALS: BP 138/60; PULSE 64; RESP 16; TEMP 36.2; O2SAT 92
[2022-09-02] MEDS: Gabapentin 400 MG CAPSULE PO ×3 (11:06→22:01)
[2022-09-02] MEDS: Furosemide 20 MG TABLET 10 MG PO (11:07)
[2022-09-02] MEDS: Methylphenidate HCl 10 MG TABLET 20 MG PO (11:07)
[2022-09-02] MEDS: Loratadine 10 MG TABLET PO (11:07)
[2022-09-02] MEDS: Cyanocobalamin (Vitamin B-12) 1,000 MCG TABLET 1000 MCG PO (11:07)
[2022-09-02] MEDS: Propranolol HCL 20 MG TABLET PO (11:07)
[2022-09-02] MEDS: diazePAM 5 MG TABLET PO ×2 (11:08→15:35)
[2022-09-02] MEDS: QUEtiapine Fumarate 25 MG TABLET PO ×2 (11:09→15:02)
[2022-09-02] MEDS: FLUoxetine HCl 20 MG CAPSULE 80 MG PO (11:09)
[2022-09-02] MEDS: Loperamide HCl 2 MG CAPSULE 4 MG PO (11:43)
[2022-09-02] MEDS: Ondansetron ODT 4 MG TAB.RAPDIS TRANSLINGU (16:16)
--- NOTE | 2022-09-02 16:20 | P.PNPSI_ITS ---
Subjective Subjective Date of Service: 09/02/22 Reason For Visit: Si, depression Interim History: Patient seen and discussed. She was complaining of some nausea and diarrhea. She says she continues to have SI but says that she feels she can't verbalize them because she would be punished by having things taken away and kept here. Saying that on M3 and M5 she would be able to process them with individual counseling. Review of Systems Review of Systems Yes all other systems are reviewed and are negative Mental Status Exam Mental Status Exam Patient Appearance: Well Grooomed Patient Orientation: Person Level of Consciousness: Awake Patient Behavior: Cooperative Mood Description: Withdrawn Affect Description: Constricted Patient Cognition Impaired: No Ability to Follow Directions: Good Speech Pattern: Clear Memory Description: Intact Diagnostics Vital Signs (24Hr): Vital Signs - 24 hr 09/01/22 20:00 09/02/22 07:45 Temperature 97.6 F 97.1 F Pulse Rate 59 64 Respiratory Rate 20 16 Blood Pressure 120/63 138/60 Pulse Oximetry 92 92 Oxygen Delivery Method Room Air Room Air BMI result Body Mass Index 40.7 Labs Results: 08/28/22 05:54 08/28/22 05:54 Medications Medications Current Medications Acetaminophen (Acetaminophen 325 Mg Tablet) 650 mg PO Q6H PRN PRN Reason: Headache/Pain Mild Scale (1-3) Last Admin: 08/29/22 22:34 Dose: 650 mg Al Hydroxide/Mg Hydroxide (Magnesium Hydrox/Alum Hydrox 30 Ml Oral.Susp) 30 ml PO Q6H PRN PRN Reason: Heartburn/Nausea Atorvastatin Calcium (Atorvastatin Calcium 20 Mg Tablet) 20 mg PO BEDTIME [facility] Last Admin: 09/01/22 22:08 Dose: 20 mg Cyanocobalamin (Cyanocobalamin (Vitamin B-12) 1,000 Mcg Tablet) 1,000 mcg PO DAILY [facility] Last Admin: 09/02/22 11:07 Dose: 1,000 mcg Diazepam (Diazepam 5 Mg Tablet) 10 mg PO BEDTIME [facility] Last Admin: 09/01/22 22:08 Dose: 10 mg Diazepam (Diazepam 5 Mg Tablet) 5 mg PO BID@0800,1500 [facility] Last Admin: 09/02/22 15:35 Dose: 5 mg Divalproex Sodium (Divalproex Sodium 500 Mg Tablet.Dr) 1,000 mg PO BEDTIME [facility] Last Admin: 09/01/22 22:08 Dose: 1,000 mg Fluoxetine HCl (Fluoxetine Hcl 20 Mg Capsule) 80 mg PO DAILY [facility] Last Admin: 09/02/22 11:09 Dose: 80 mg Fluticasone Propionate (Fluticasone Propionate Nasal 16 Gm [place]) 1 spray NOSTRIL-B BID [facility] Last Admin: 09/02/22 11:40 Dose: Not Given Fluticasone/Vilanterol (Fluticasone/Vilanterol 100/25 Blst.W.Dev) 1 puff INHALE RDAILY [facility] Last Admin: 09/02/22 11:39 Dose: Not Given Furosemide (Furosemide 20 Mg Tablet) 10 mg PO DAILY [facility]; Protocol Last Admin: 09/02/22 11:07 Dose: 10 mg Gabapentin (Gabapentin 400 Mg Capsule) 400 mg PO TID@0800,1330,2100 [facility] Last Admin: 09/02/22 15:02 Dose: 400 mg Hydroxyzine HCl (Hydroxyzine Hcl 25 Mg Tablet) 25 mg PO Q6H PRN PRN Reason: Anxiety Levothyroxine Sodium (Levothyroxine Sodium 25 Mcg Tablet) 25 mcg PO DAILY@0600 [facility] Last Admin: 09/02/22 06:20 Dose: 25 mcg Loperamide HCl (Loperamide Hcl 2 Mg Capsule) 4 mg PO Q4H PRN PRN Reason: Diarrhea Last Admin: 09/02/22 11:43 Dose: 4 mg Loratadine (Loratadine 10 Mg Tablet) 10 mg PO DAILY [facility] Last Admin: 09/02/22 11:07 Dose: 10 mg Magnesium Hydroxide (Milk Of Magnesia 30 Ml Oral.Susp) 30 ml PO DAILY PRN PRN Reason: Constipation Methylphenidate HCl (Methylphenidate Hcl 10 Mg Tablet) 20 mg PO TID@0800,1330,1700 [facility] Last Admin: 09/02/22 15:05 Dose: Not Given Ondansetron HCl (Ondansetron Odt 4 Mg Tab.Rapdis) 4 mg TRANSLINGU Q8H PRN PRN Reason: Nausea and Vomiting Last Admin: 09/02/22 16:16 Dose: 4 mg Propranolol HCl (Propranolol Hcl 20 Mg Tablet) 20 mg PO TID@0800,1330,2100 [facility]; Protocol Last Admin: 09/02/22 15:05 Dose: Not Given Quetiapine Fumarate (Quetiapine Fumarate 100 Mg Tablet) 100 mg PO BEDTIME [facility] Last Admin: 09/01/22 22:08 Dose: 100 mg Quetiapine Fumarate (Quetiapine Fumarate 25 Mg Tablet) 25 mg PO BID@0800,1500 [facility] Last Admin: 09/02/22 15:02 Dose: 25 mg Allergies Allergies Allergy/AdvReac Type Severity Reaction Status Date / Time ampicillin [AMPICILLIN] Allergy Unknown ERYTHEMA Verified 08/28/22 05:31 NODOSUM (LEG SWELLING) droperidol [From INAPSINE] Allergy Unknown SEIZURES Verified 08/28/22 05:31 oxycodone [From PERCOCET] Allergy Unknown DIFFICULTY Verified 08/28/22 05:31 BREATHING erythromycin base AdvReac Unknown STOMACH Verified 08/28/22 05:31 [ERYTHROMYCIN BASE] UPSET Fish Containing Products AdvReac Unknown NAUSEA Verified 08/28/22 05:31 trazodone [TRAZODONE] AdvReac Unknown UNKNOWN Verified 08/28/22 05:31 Erythromycin Allergy Unknown Unknown Uncoded 08/28/22 05:31 Inapsine Allergy Unknown Unknown Uncoded 08/28/22 05:31 Assessment & Plan Assessment & Plan (1) Borderline personality disorder: Status: Acute Code(s): F60.3 - Borderline personality disorder (2) Bipolar 1 disorder: Status: Acute Code(s): F31.9 - Bipolar disorder, unspecified (3) OCD (obsessive compulsive disorder): Status: Acute Code(s): F42.9 - Obsessive-compulsive disorder, unspecified (4) PTSD (post-traumatic stress disorder): Status: Acute Code(s): F43.10 - Post-traumatic stress disorder, unspecified Plan The patient is an elderly female, with bipolar disorder, borderline personality disorder and PTSD admitted for exacerbation of dysphoria and suicidal thoughts. The patient is very well known by this team since she had been admitted twice in the last year for similar presentation. Plan 1. Gather collateral information. I will contact her outpatient psychiatrist for further details. 2. Continue with current treatment. 3. Continue medical workout. 4. Reassessment with results. 5. Start Synthroid 25 mcg daily as augmentation for depression 6. Keep her on 5 minutes check and reassess in 24 hours 09/01: Continue treatment plan. Will adjust Seroquel to her home dosing. 09/02: Continue current treatment plan. I spent minutes with the patient and/or on the patient floor today, greater than?50% of which was spent counseling/coordinating care. Reason for contiued inpatient stay Substantial Risk for: harm to self
[2022-09-02 18:00] VITALS: BP 103/51; PULSE 58; RESP 16; TEMP 35.7; O2SAT 91
[2022-09-02] MEDS: Atorvastatin Calcium 20 MG TABLET PO (21:55)
[2022-09-02] MEDS: diazePAM 5 MG TABLET 10 MG PO (21:55)
[2022-09-02] MEDS: Divalproex Sodium 500 MG TABLET.DR 1000 MG PO (21:55)
[2022-09-02] MEDS: QUEtiapine Fumarate 100 MG TABLET PO (21:55)
[2022-09-03] MEDS: Acetaminophen 325 MG TABLET 650 MG PO (02:27)
[2022-09-03 06:00] VITALS: BP 106/53; PULSE 58; RESP 14; TEMP 36; O2SAT 96
[2022-09-03] MEDS: Levothyroxine Sodium 25 MCG TABLET PO (06:07)
[2022-09-03] MEDS: Furosemide 20 MG TABLET 10 MG PO (09:35)
[2022-09-03] MEDS: diazePAM 5 MG TABLET PO ×2 (09:36→16:15)
[2022-09-03] MEDS: Cyanocobalamin (Vitamin B-12) 1,000 MCG TABLET 1000 MCG PO (09:36)
[2022-09-03] MEDS: Loratadine 10 MG TABLET PO (09:37)
[2022-09-03] MEDS: QUEtiapine Fumarate 25 MG TABLET PO ×2 (09:37→16:14)
[2022-09-03] MEDS: FLUoxetine HCl 20 MG CAPSULE 80 MG PO (09:38)
[2022-09-03] MEDS: Fluticasone/Vilanterol 100/25 BLST.W.DEV 1 PUFF INHALE (09:39)
[2022-09-03] MEDS: Fluticasone Propionate Nasal 16 GM SPRAY 1 SPRAY NOSTRIL-B ×2 (09:39→22:56)
[2022-09-03] MEDS: Propranolol HCL 20 MG TABLET PO ×3 (09:51→21:56)
[2022-09-03] MEDS: Gabapentin 400 MG CAPSULE PO ×3 (09:51→21:56)
--- NOTE | 2022-09-03 12:23 | HO.PSYCHPN ---
Subjective Subjective Date of Service: 09/03/22 Reason For Visit: Si, depression Subjective Notes: Conditional Voluntary Interim History: The nursing staff reported that the patient has been demanding screaming since she wants to be on one-to-one. Also she has demanded to have her shower in the afternoon and he will take a couple of hours because it takes a while for her to organized herself. She has used all her PRNs and she is demanding more attention. According to the notes of the psychiatrist over the weekend, the patient refused to elaborate of work his suicidal it because she feels that she will be punished by taking away her belongings. On interview she was on her bed and refused to engage on conversation. I informed I will increase her levothyroxine to 37.5. Over the weekend I discussed with Dr. Jaeger and he provide extra information about her admission. Apparently there were no new stressors or changes in her medication. Mental Status Exam Mental Status Exam Patient Appearance: Well Grooomed Patient Orientation: Person and Situation Level of Consciousness: Awake Patient Behavior: Guarded and Suspicious Mood Description: Withdrawn Affect Description: Labile Patient Cognition Impaired: Yes Ability to Follow Directions: Good Speech Pattern: Clear Hallucinations: None Delusions: Not Present Thought Process: Distracted Thought Content: positive for Circumstantial Judgement: Poor Diagnostics Vital Signs (24Hr): Vital Signs - 24 hr 09/02/22 18:00 09/03/22 06:00 Temperature 96.2 F L 96.8 F Pulse Rate 58 58 Respiratory Rate 16 14 Blood Pressure 103/51 L 106/53 L Pulse Oximetry 91 L 96 Oxygen Delivery Method Room Air Room Air BMI result Body Mass Index 40.7 Labs Results: 08/28/22 05:54 08/28/22 05:54 Medications Medications Current Medications Acetaminophen (Acetaminophen 325 Mg Tablet) 650 mg PO Q6H PRN PRN Reason: Headache/Pain Mild Scale (1-3) Last Admin: 09/03/22 02:27 Dose: 650 mg Al Hydroxide/Mg Hydroxide (Magnesium Hydrox/Alum Hydrox 30 Ml Oral.Susp) 30 ml PO Q6H PRN PRN Reason: Heartburn/Nausea Atorvastatin Calcium (Atorvastatin Calcium 20 Mg Tablet) 20 mg PO BEDTIME [facility] Last Admin: 09/02/22 21:55 Dose: 20 mg Cyanocobalamin (Cyanocobalamin (Vitamin B-12) 1,000 Mcg Tablet) 1,000 mcg PO DAILY [facility] Last Admin: 09/03/22 09:36 Dose: 1,000 mcg Diazepam (Diazepam 5 Mg Tablet) 5 mg PO BID@0800,1500 [facility] Last Admin: 09/03/22 09:36 Dose: 5 mg Divalproex Sodium (Divalproex Sodium 500 Mg Tablet.Dr) 1,000 mg PO BEDTIME [facility] Last Admin: 09/02/22 21:55 Dose: 1,000 mg Fluoxetine HCl (Fluoxetine Hcl 20 Mg Capsule) 80 mg PO DAILY [facility] Last Admin: 09/03/22 09:38 Dose: 80 mg Fluticasone Propionate (Fluticasone Propionate Nasal 16 Gm Saxon) 1 spray NOSTRIL-B BID [facility] Last Admin: 09/03/22 09:39 Dose: 1 spray Fluticasone/Vilanterol (Fluticasone/Vilanterol 100/25 Blst.W.Dev) 1 puff INHALE RDAILY [facility] Last Admin: 09/03/22 09:39 Dose: 1 puff Furosemide (Furosemide 20 Mg Tablet) 10 mg PO DAILY [facility]; Protocol Last Admin: 09/03/22 09:35 Dose: 10 mg Gabapentin (Gabapentin 400 Mg Capsule) 400 mg PO TID@0800,1330,2100 [facility] Last Admin: 09/03/22 09:51 Dose: 400 mg Hydroxyzine HCl (Hydroxyzine Hcl 25 Mg Tablet) 25 mg PO Q6H PRN PRN Reason: Anxiety Levothyroxine Sodium (Levothyroxine Sodium 25 Mcg Tablet) 37.5 mcg PO DAILY@0600 [facility] Loperamide HCl (Loperamide Hcl 2 Mg Capsule) 4 mg PO Q4H PRN PRN Reason: Diarrhea Last Admin: 09/02/22 11:43 Dose: 4 mg Loratadine (Loratadine 10 Mg Tablet) 10 mg PO DAILY [facility] Last Admin: 09/03/22 09:37 Dose: 10 mg Magnesium Hydroxide (Milk Of Magnesia 30 Ml Oral.Susp) 30 ml PO DAILY PRN PRN Reason: Constipation Methylphenidate HCl (Methylphenidate Hcl 10 Mg Tablet) 20 mg PO TID@0800,1330,1700 [facility] Last Admin: 09/02/22 15:05 Dose: Not Given Ondansetron HCl (Ondansetron Odt 4 Mg Tab.Rapdis) 4 mg TRANSLINGU Q8H PRN PRN Reason: Nausea and Vomiting Last Admin: 09/02/22 16:16 Dose: 4 mg Propranolol HCl (Propranolol Hcl 20 Mg Tablet) 20 mg PO TID@0800,1330,2100 [facility]; Protocol Last Admin: 09/03/22 09:51 Dose: 20 mg Quetiapine Fumarate (Quetiapine Fumarate 100 Mg Tablet) 100 mg PO BEDTIME [facility] Last Admin: 09/02/22 21:55 Dose: 100 mg Quetiapine Fumarate (Quetiapine Fumarate 25 Mg Tablet) 25 mg PO BID@0800,1500 [facility] Last Admin: 09/03/22 09:37 Dose: 25 mg Allergies Allergies Allergy/AdvReac Type Severity Reaction Status Date / Time ampicillin [AMPICILLIN] Allergy Unknown ERYTHEMA Verified 08/28/22 05:31 NODOSUM (LEG SWELLING) droperidol [From INAPSINE] Allergy Unknown SEIZURES Verified 08/28/22 05:31 oxycodone [From PERCOCET] Allergy Unknown DIFFICULTY Verified 08/28/22 05:31 BREATHING erythromycin base AdvReac Unknown STOMACH Verified 08/28/22 05:31 [ERYTHROMYCIN BASE] UPSET Fish Containing Products AdvReac Unknown NAUSEA Verified 08/28/22 05:31 trazodone [TRAZODONE] AdvReac Unknown UNKNOWN Verified 08/28/22 05:31 Erythromycin Allergy Unknown Unknown Uncoded 08/28/22 05:31 Inapsine Allergy Unknown Unknown Uncoded 08/28/22 05:31 Assessment & Plan Assessment & Plan (1) Borderline personality disorder: Status: Acute Code(s): F60.3 - Borderline personality disorder (2) Bipolar 1 disorder: Status: Acute Code(s): F31.9 - Bipolar disorder, unspecified (3) OCD (obsessive compulsive disorder): Status: Acute Code(s): F42.9 - Obsessive-compulsive disorder, unspecified (4) PTSD (post-traumatic stress disorder): Status: Acute Code(s): F43.10 - Post-traumatic stress disorder, unspecified Plan The patient is an elderly female, with bipolar disorder, borderline personality disorder and PTSD admitted for exacerbation of dysphoria and suicidal thoughts. The patient is very well known by this team since she had been admitted twice in the last year for similar presentation. Plan 1. Gather collateral information. I will contact her outpatient psychiatrist for further details. 2. Continue with current treatment. 3. Continue medical workout. 4. Reassessment with results. 5. Increase Synthroid up to 37.5 mcg daily as augmentation for depression 6. Keep her on 5 minutes check and reassess in 24 hours I spent ___20___ minutes with the patient and/or on the patient floor today, greater than?50% of which was spent counseling/coordinating care. Reason for contiued inpatient stay Substantial Risk for: inability to function, rapid decompensation and med/psych decompensation
[2022-09-03] MEDS: Methylphenidate HCl 10 MG TABLET 20 MG PO ×2 (16:14→16:15)
[2022-09-03 20:00] VITALS: BP 90/60; PULSE 62; RESP 18; TEMP 35.8; O2SAT 95
[2022-09-03] MEDS: Divalproex Sodium 500 MG TABLET.DR 1000 MG PO (21:56)
[2022-09-03] MEDS: Atorvastatin Calcium 20 MG TABLET PO (21:56)
[2022-09-03] MEDS: QUEtiapine Fumarate 100 MG TABLET PO (21:57)
[2022-09-04 06:00] VITALS: BP 119/57; PULSE 59; RESP 16; TEMP 36.2; O2SAT 91
[2022-09-04] MEDS: Levothyroxine Sodium 25 MCG TABLET 37.5 MCG PO (06:17)
[2022-09-04 09:00] VITALS: BP 129/66; PULSE 66; RESP 16; TEMP 36.5; O2SAT 98
[2022-09-04] MEDS: QUEtiapine Fumarate 25 MG TABLET PO ×2 (10:28→14:39)
[2022-09-04] MEDS: diazePAM 5 MG TABLET PO ×2 (10:28→14:40)
[2022-09-04] MEDS: FLUoxetine HCl 20 MG CAPSULE 80 MG PO (10:29)
[2022-09-04] MEDS: Furosemide 20 MG TABLET 10 MG PO (10:30)
[2022-09-04] MEDS: Cyanocobalamin (Vitamin B-12) 1,000 MCG TABLET 1000 MCG PO (10:30)
[2022-09-04] MEDS: Loratadine 10 MG TABLET PO (10:30)
[2022-09-04] MEDS: Propranolol HCL 20 MG TABLET PO ×3 (10:41→22:16)
[2022-09-04] MEDS: Methylphenidate HCl 10 MG TABLET 20 MG PO ×3 (10:42→17:20)
[2022-09-04] MEDS: Gabapentin 400 MG CAPSULE PO ×3 (10:42→22:15)
[2022-09-04] MEDS: Fluticasone Propionate Nasal 16 GM SPRAY 1 SPRAY NOSTRIL-B ×2 (10:49→22:15)
[2022-09-04] MEDS: Fluticasone/Vilanterol 100/25 BLST.W.DEV 1 PUFF INHALE (10:49)
--- NOTE | 2022-09-04 11:45 | PC.NURSE ---
Pt was fell around 9am in her room fall was unwitnessed. Pt was AxOx3 during the whole assessment, pt denies loosing consciousness. Pt initialy denied hit her head but later say she hit her head. Pt was found sitting agaist the bed and nightstand. Pt vital WNL see worklist. Pt stated she cant bend her knees to assist with lifting off the floor the mel was used.Pt was able to lift and move herself on to the mel pad with no complaints of pain.CT of the head and Xray were both ordered but the pt refused. Pt later stated that she hit her head and she will like to be evaluated for concussion.
--- NOTE | 2022-09-04 12:26 | HO.PSYCHPN ---
Subjective Subjective Date of Service: 09/04/22 Reason For Visit: Si, depression Subjective Notes: Conditional Voluntary Interim History: The staff has reported the patient has been doing splitting. Demanding one-to-one and complaining about feeling drowsy and lethargic. After careful review, the patient missed. 3 doses of Ritalin. Her vital signs her been okay and she had not been participating any groups as per occupational therapist. Today in the morning she had a fall,, it was not witness and she stated that she hit her head. CT scan head was order and a chest x-ray but she refused to have it. No loss of consciousness, no bleeding, the alleged fall was unwitnessed. Later on, she agreed to have the CT-Scan it was normal On interview the patient complained of several somatic complaints. No active suicidal thoughts. Mental Status Exam Mental Status Exam Patient Appearance: Appropriate Patient Orientation: Person and Situation Level of Consciousness: Awake Patient Behavior: Suspicious and Self Manipulative Mood Description: Withdrawn Affect Description: Labile Patient Cognition Impaired: Yes Ability to Follow Directions: Good Speech Pattern: Clear Hallucinations: None Delusions: Paranoid Ideation Thought Process: Distracted Thought Content: positive for [place] Judgement: Fair Diagnostics Vital Signs (24Hr): Vital Signs - 24 hr 09/03/22 20:00 09/04/22 09:00 09/04/22 06:00 Temperature 96.5 F L 97.7 F 97.1 F Pulse Rate 62 66 59 Respiratory Rate 18 16 16 Blood Pressure 90/60 129/66 119/57 L Pulse Oximetry 95 98 91 L Oxygen Delivery Method Room Air Room Air Room Air BMI result Body Mass Index 40.7 Labs Results: 08/28/22 05:54 08/28/22 05:54 Medications Medications Current Medications Acetaminophen (Acetaminophen 325 Mg Tablet) 650 mg PO Q6H PRN PRN Reason: Headache/Pain Mild Scale (1-3) Last Admin: 09/03/22 02:27 Dose: 650 mg Al Hydroxide/Mg Hydroxide (Magnesium Hydrox/Alum Hydrox 30 Ml Oral.Susp) 30 ml PO Q6H PRN PRN Reason: Heartburn/Nausea Atorvastatin Calcium (Atorvastatin Calcium 20 Mg Tablet) 20 mg PO BEDTIME [facility] Last Admin: 09/03/22 21:56 Dose: 20 mg Cyanocobalamin (Cyanocobalamin (Vitamin B-12) 1,000 Mcg Tablet) 1,000 mcg PO DAILY [facility] Last Admin: 09/04/22 10:30 Dose: 1,000 mcg Diazepam (Diazepam 5 Mg Tablet) 5 mg PO BID@0800,1500 [facility] Last Admin: 09/04/22 10:28 Dose: 5 mg Divalproex Sodium (Divalproex Sodium 500 Mg Tablet.Dr) 1,000 mg PO BEDTIME [facility] Last Admin: 09/03/22 21:56 Dose: 1,000 mg Fluoxetine HCl (Fluoxetine Hcl 20 Mg Capsule) 80 mg PO DAILY [facility] Last Admin: 09/04/22 10:29 Dose: 80 mg Fluticasone Propionate (Fluticasone Propionate Nasal 16 Gm Pep) 1 spray NOSTRIL-B BID [facility] Last Admin: 09/04/22 10:49 Dose: 1 spray Fluticasone/Vilanterol (Fluticasone/Vilanterol 100/25 Blst.W.Dev) 1 puff INHALE RDAILY [facility] Last Admin: 09/04/22 10:49 Dose: 1 puff Furosemide (Furosemide 20 Mg Tablet) 10 mg PO DAILY [facility]; Protocol Last Admin: 09/04/22 10:30 Dose: 10 mg Gabapentin (Gabapentin 400 Mg Capsule) 400 mg PO TID@0800,1330,2100 [facility] Last Admin: 09/04/22 10:42 Dose: 400 mg Hydroxyzine HCl (Hydroxyzine Hcl 25 Mg Tablet) 25 mg PO Q6H PRN PRN Reason: Anxiety Levothyroxine Sodium (Levothyroxine Sodium 25 Mcg Tablet) 37.5 mcg PO DAILY@0600 [facility] Last Admin: 09/04/22 06:17 Dose: 37.5 mcg Loperamide HCl (Loperamide Hcl 2 Mg Capsule) 4 mg PO Q4H PRN PRN Reason: Diarrhea Last Admin: 09/02/22 11:43 Dose: 4 mg Loratadine (Loratadine 10 Mg Tablet) 10 mg PO DAILY [facility] Last Admin: 09/04/22 10:30 Dose: 10 mg Magnesium Hydroxide (Milk Of Magnesia 30 Ml Oral.Susp) 30 ml PO DAILY PRN PRN Reason: Constipation Methylphenidate HCl (Methylphenidate Hcl 10 Mg Tablet) 20 mg PO TID@0800,1330,1700 [facility] Last Admin: 09/04/22 10:42 Dose: 20 mg Ondansetron HCl (Ondansetron Odt 4 Mg Tab.Rapdis) 4 mg TRANSLINGU Q8H PRN PRN Reason: Nausea and Vomiting Last Admin: 09/02/22 16:16 Dose: 4 mg Propranolol HCl (Propranolol Hcl 20 Mg Tablet) 20 mg PO TID@0800,1330,2100 [facility]; Protocol Last Admin: 09/04/22 10:41 Dose: 20 mg Quetiapine Fumarate (Quetiapine Fumarate 100 Mg Tablet) 100 mg PO BEDTIME [facility] Last Admin: 09/03/22 21:57 Dose: 100 mg Quetiapine Fumarate (Quetiapine Fumarate 25 Mg Tablet) 25 mg PO BID@0800,1500 [facility] Last Admin: 09/04/22 10:28 Dose: 25 mg Allergies Allergies Allergy/AdvReac Type Severity Reaction Status Date / Time ampicillin [AMPICILLIN] Allergy Unknown ERYTHEMA Verified 08/28/22 05:31 NODOSUM (LEG SWELLING) droperidol [From INAPSINE] Allergy Unknown SEIZURES Verified 08/28/22 05:31 oxycodone [From PERCOCET] Allergy Unknown DIFFICULTY Verified 08/28/22 05:31 BREATHING erythromycin base AdvReac Unknown STOMACH Verified 08/28/22 05:31 [ERYTHROMYCIN BASE] UPSET Fish Containing Products AdvReac Unknown NAUSEA Verified 08/28/22 05:31 trazodone [TRAZODONE] AdvReac Unknown UNKNOWN Verified 08/28/22 05:31 Erythromycin Allergy Unknown Unknown Uncoded 08/28/22 05:31 Inapsine Allergy Unknown Unknown Uncoded 08/28/22 05:31 Assessment & Plan Assessment & Plan (1) Borderline personality disorder: Status: Acute Code(s): F60.3 - Borderline personality disorder (2) Bipolar 1 disorder: Status: Acute Code(s): F31.9 - Bipolar disorder, unspecified (3) OCD (obsessive compulsive disorder): Status: Acute Code(s): F42.9 - Obsessive-compulsive disorder, unspecified (4) PTSD (post-traumatic stress disorder): Status: Acute Code(s): F43.10 - Post-traumatic stress disorder, unspecified Plan The patient is an elderly female, with bipolar disorder, borderline personality disorder and PTSD admitted for exacerbation of dysphoria and suicidal thoughts. The patient is very well known by this team since she had been admitted twice in the last year for similar presentation. Plan 1. Gather collateral information. I I was able to contact her outpatient psychiatrist and he reports no new changes. 2. Continue with current treatment. 3. Continue medical workout. 4. Reassessment with results. 5. Increase Synthroid up to 37.5 mcg daily as augmentation for depression 6. Keep her on 5 minutes check and reassess in 24 hours I spent ___20___ minutes with the patient and/or on the patient floor today, greater than?50% of which was spent counseling/coordinating care. Reason for contiued inpatient stay Substantial Risk for: inability to function, rapid decompensation and med/psych decompensation
[2022-09-04] MEDS: Magnesium Hydrox/Alum Hydrox 30 ML ORAL.SUSP PO (13:29)
[2022-09-04 18:00] VITALS: BP 109/55; PULSE 65; RESP 18; TEMP 36.1; O2SAT 92
[2022-09-04] MEDS: Divalproex Sodium 500 MG TABLET.DR 1000 MG PO (21:58)
[2022-09-04] MEDS: Atorvastatin Calcium 20 MG TABLET PO (21:58)
[2022-09-04] MEDS: QUEtiapine Fumarate 100 MG TABLET PO (22:16)
[2022-09-04] MEDS: diazePAM 5 MG TABLET 10 MG PO (22:38)
[2022-09-05 06:00] VITALS: BP 123/60; PULSE 57; RESP 16; TEMP 36.6; O2SAT 93
[2022-09-05] MEDS: Levothyroxine Sodium 25 MCG TABLET 37.5 MCG PO (06:41)
[2022-09-05] MEDS: Omeprazole 20 MG CAPSULE.DR PO (06:42)
[2022-09-05] MEDS: Acetaminophen 325 MG TABLET 650 MG PO ×2 (06:49→23:06)
[2022-09-05] MEDS: Furosemide 20 MG TABLET 10 MG PO (09:00)
[2022-09-05] MEDS: diazePAM 5 MG TABLET PO ×2 (09:02→14:16)
[2022-09-05] MEDS: FLUoxetine HCl 20 MG CAPSULE 80 MG PO (09:02)
[2022-09-05] MEDS: Loratadine 10 MG TABLET PO (09:03)
[2022-09-05] MEDS: Cyanocobalamin (Vitamin B-12) 1,000 MCG TABLET 1000 MCG PO (09:03)
[2022-09-05] MEDS: QUEtiapine Fumarate 25 MG TABLET PO ×2 (09:03→14:17)
[2022-09-05] MEDS: Methylphenidate HCl 10 MG TABLET 20 MG PO ×3 (09:33→17:21)
[2022-09-05] MEDS: Gabapentin 400 MG CAPSULE PO ×3 (09:33→22:03)
[2022-09-05] MEDS: Propranolol HCL 20 MG TABLET PO ×3 (09:33→22:03)
[2022-09-05] MEDS: Fluticasone/Vilanterol 100/25 BLST.W.DEV 1 PUFF INHALE (09:33)
--- NOTE | 2022-09-05 11:25 | HO.PSYCHPN ---
Subjective Subjective Date of Service: 09/05/22 Reason For Visit: Si, depression Subjective Notes: Conditional Voluntary Interim History: The nursing staff reported the patient has being lab I will, yelling at times, manipulative and splitting with staff. She states that she has some pain from her alleged fall of yesterday. She denies suicidal ideation at this moment. She is aware of her discharge tomorrow. She was angry since she wanted to take her medications at specific hours. Mental Status Exam Mental Status Exam Patient Appearance: Appropriate Patient Orientation: Person and Situation Level of Consciousness: Awake Patient Behavior: Guarded and Passive Mood Description: Withdrawn Affect Description: Calm Patient Cognition Impaired: No Ability to Follow Directions: Good Speech Pattern: Clear Hallucinations: None Delusions: Not Present Thought Process: Linear Thought Content: positive for Circumstantial Judgement: Fair Diagnostics Vital Signs (24Hr): Vital Signs - 24 hr 09/04/22 18:00 09/05/22 06:00 Temperature 96.9 F 97.8 F Pulse Rate 65 57 Respiratory Rate 18 16 Blood Pressure 109/55 L 123/60 Pulse Oximetry 92 93 Oxygen Delivery Method Room Air Room Air BMI result Body Mass Index 40.7 Labs Results: 08/28/22 05:54 08/28/22 05:54 Imaging Radiology Impressions: ITS Impressions Head CT 09/04/22 14:02 IMPRESSION: No acute intracranial pathology. KUB X-Ray 09/04/22 16:27 IMPRESSION: 1. Nonobstructive bowel gas pattern. 2. No fracture identified within the limitations of this exam. Medications Medications Current Medications Acetaminophen (Acetaminophen 325 Mg Tablet) 650 mg PO Q6H PRN PRN Reason: Headache/Pain Mild Scale (1-3) Last Admin: 09/05/22 06:49 Dose: 650 mg Al Hydroxide/Mg Hydroxide (Magnesium Hydrox/Alum Hydrox 30 Ml Oral.Susp) 30 ml PO Q6H PRN PRN Reason: Heartburn/Nausea Last Admin: 09/04/22 13:29 Dose: 30 ml Atorvastatin Calcium (Atorvastatin Calcium 20 Mg Tablet) 20 mg PO BEDTIME [facility] Last Admin: 09/04/22 21:58 Dose: 20 mg Calcium Carbonate (Calcium Carbonate 750 Mg Tab.Chew) 750 mg PO Q4H PRN PRN Reason: Indigestion Cyanocobalamin (Cyanocobalamin (Vitamin B-12) 1,000 Mcg Tablet) 1,000 mcg PO DAILY [facility] Last Admin: 09/05/22 09:03 Dose: 1,000 mcg Diazepam (Diazepam 5 Mg Tablet) 5 mg PO BID@0800,1500 [facility] Last Admin: 09/05/22 09:02 Dose: 5 mg Diazepam (Diazepam 5 Mg Tablet) 10 mg PO BEDTIME [facility] Last Admin: 09/04/22 22:38 Dose: 10 mg Divalproex Sodium (Divalproex Sodium 500 Mg Tablet.Dr) 1,000 mg PO BEDTIME [facility] Last Admin: 09/04/22 21:58 Dose: 1,000 mg Fluoxetine HCl (Fluoxetine Hcl 20 Mg Capsule) 80 mg PO DAILY [facility] Last Admin: 09/05/22 09:02 Dose: 80 mg Fluticasone Propionate (Fluticasone Propionate Nasal 16 Gm [place]) 1 spray NOSTRIL-B BID [facility] Last Admin: 09/04/22 22:15 Dose: 1 spray Fluticasone/Vilanterol (Fluticasone/Vilanterol 100/25 Blst.W.Dev) 1 puff INHALE RDAILY [facility] Last Admin: 09/05/22 09:33 Dose: 1 puff Furosemide (Furosemide 20 Mg Tablet) 10 mg PO DAILY [facility]; Protocol Last Admin: 09/05/22 09:00 Dose: 10 mg Gabapentin (Gabapentin 400 Mg Capsule) 400 mg PO TID@0800,1330,2100 [facility] Last Admin: 09/05/22 09:33 Dose: 400 mg Hydroxyzine HCl (Hydroxyzine Hcl 25 Mg Tablet) 25 mg PO Q6H PRN PRN Reason: Anxiety Levothyroxine Sodium (Levothyroxine Sodium 50 Mcg Tablet) 50 mcg PO DAILY@0600 [facility] Loperamide HCl (Loperamide Hcl 2 Mg Capsule) 4 mg PO Q4H PRN PRN Reason: Diarrhea Last Admin: 09/02/22 11:43 Dose: 4 mg Loratadine (Loratadine 10 Mg Tablet) 10 mg PO DAILY [facility] Last Admin: 09/05/22 09:03 Dose: 10 mg Magnesium Hydroxide (Milk Of Magnesia 30 Ml Oral.Susp) 30 ml PO DAILY PRN PRN Reason: Constipation Methylphenidate HCl (Methylphenidate Hcl 10 Mg Tablet) 20 mg PO TID@0800,1330,1700 [facility] Last Admin: 09/05/22 09:33 Dose: 20 mg Omeprazole (Omeprazole 20 Mg Capsule.Dr) 20 mg PO DAILY@0630 [facility] Last Admin: 09/05/22 06:42 Dose: 20 mg Ondansetron HCl (Ondansetron Odt 4 Mg Tab.Rapdis) 4 mg TRANSLINGU Q8H PRN PRN Reason: Nausea and Vomiting Last Admin: 09/02/22 16:16 Dose: 4 mg Propranolol HCl (Propranolol Hcl 20 Mg Tablet) 20 mg PO TID@0800,1330,2100 [facility]; Protocol Last Admin: 09/05/22 09:33 Dose: 20 mg Quetiapine Fumarate (Quetiapine Fumarate 100 Mg Tablet) 100 mg PO BEDTIME [facility] Last Admin: 09/04/22 22:16 Dose: 100 mg Quetiapine Fumarate (Quetiapine Fumarate 25 Mg Tablet) 25 mg PO BID@0800,1500 [facility] Last Admin: 09/05/22 09:03 Dose: 25 mg Allergies Allergies Allergy/AdvReac Type Severity Reaction Status Date / Time ampicillin [AMPICILLIN] Allergy Unknown ERYTHEMA Verified 08/28/22 05:31 NODOSUM (LEG SWELLING) droperidol [From INAPSINE] Allergy Unknown SEIZURES Verified 08/28/22 05:31 oxycodone [From PERCOCET] Allergy Unknown DIFFICULTY Verified 08/28/22 05:31 BREATHING erythromycin base AdvReac Unknown STOMACH Verified 08/28/22 05:31 [ERYTHROMYCIN BASE] UPSET Fish Containing Products AdvReac Unknown NAUSEA Verified 08/28/22 05:31 trazodone [TRAZODONE] AdvReac Unknown UNKNOWN Verified 08/28/22 05:31 Erythromycin Allergy Unknown Unknown Uncoded 08/28/22 05:31 Inapsine Allergy Unknown Unknown Uncoded 08/28/22 05:31 Assessment & Plan Assessment & Plan (1) Borderline personality disorder: Status: Acute Code(s): F60.3 - Borderline personality disorder (2) Bipolar 1 disorder: Status: Acute Code(s): F31.9 - Bipolar disorder, unspecified (3) OCD (obsessive compulsive disorder): Status: Acute Code(s): F42.9 - Obsessive-compulsive disorder, unspecified (4) PTSD (post-traumatic stress disorder): Status: Acute Code(s): F43.10 - Post-traumatic stress disorder, unspecified Plan The patient is an elderly female, with bipolar disorder, borderline personality disorder and PTSD admitted for exacerbation of dysphoria and suicidal thoughts. The patient is very well known by this team since she had been admitted twice in the last year for similar presentation. Plan 1. Gather collateral information. I I was able to contact her outpatient psychiatrist and he reports no new changes. 2. Continue with current treatment. 3. Continue medical workout. 4. Reassessment with results. 5. Increase Synthroid up to 37.5 mcg daily as augmentation for depression 6. Keep her on 15 minutes check and reassess in 24 hours. 7. Consider early discharge. I spent __20____ minutes with the patient and/or on the patient floor today, greater than?50% of which was spent counseling/coordinating care. Reason for contiued inpatient stay Substantial Risk for: inability to function, rapid decompensation and med/psych decompensation
[2022-09-05] MEDS: Fluticasone Propionate Nasal 16 GM SPRAY 1 SPRAY NOSTRIL-B ×2 (14:18→22:02)
[2022-09-05 18:00] VITALS: BP 119/61; PULSE 61; RESP 18; TEMP 36.6; O2SAT 95
[2022-09-05] MEDS: Atorvastatin Calcium 20 MG TABLET PO (22:01)
[2022-09-05] MEDS: diazePAM 5 MG TABLET 10 MG PO (22:01)
[2022-09-05] MEDS: Divalproex Sodium 500 MG TABLET.DR 1000 MG PO (22:02)
[2022-09-05] MEDS: QUEtiapine Fumarate 100 MG TABLET PO (22:03)
--- NOTE | 2022-09-06 03:15 | PC.NURSE ---
Found pt. sitting on the floor. Patient said she slides with the sock and fell in the floor. Pt. said she hit her knee but did not hit her head. Body assessment done, PT able to move all extremities, no bruises or skin tear noted. PERRLA.No c/o nausea, vomiting or dizziness. AT 23:06H PT given Tylenol 650 mg for c/o headache and R. knee pain and rated it as 7/10 w/ effect. Candy Spreader Helper, Aliya Pitts and provider. Pat Dumont informed of the fall. Pt. sent to ED for cat scan of the head and Xray of R. knee per order of the provider.VS taken,128/60-62-18 temp-97.4 and SPO2-87% at RA. Pt is on O2 AT 2 L PER N/C at night for hx of sleep apnea and on 1:1 at night for safety.We'll continue to monitor patient.
[2022-09-06] MEDS: Levothyroxine Sodium 50 MCG TABLET PO (06:35)
[2022-09-06] MEDS: Omeprazole 20 MG CAPSULE.DR PO (06:35)
[2022-09-06] MEDS: Propranolol HCL 20 MG TABLET PO (10:03)
[2022-09-06] MEDS: FLUoxetine HCl 20 MG CAPSULE 80 MG PO (10:03)
[2022-09-06] MEDS: Furosemide 20 MG TABLET 10 MG PO (10:04)
[2022-09-06] MEDS: Gabapentin 400 MG CAPSULE PO (10:06)
[2022-09-06] MEDS: QUEtiapine Fumarate 25 MG TABLET PO (10:06)
[2022-09-06] MEDS: Cyanocobalamin (Vitamin B-12) 1,000 MCG TABLET 1000 MCG PO (10:06)
[2022-09-06] MEDS: Loratadine 10 MG TABLET PO (10:06)
[2022-09-06] MEDS: diazePAM 5 MG TABLET PO (10:06)
[2022-09-06] MEDS: Methylphenidate HCl 10 MG TABLET 20 MG PO (10:16)
--- NOTE | 2022-09-06 10:31 | PM.PSYDC ---
DS: Providers Provider Date of Service: 09/06/22 Date of admission: 08/28/22 18:07 Date of discharge: 09/06/22 Primary care physician: Unknown Physician DS: Diagnosis Discharge Diagnosis (1) Borderline personality disorder: Status: Acute (2) Bipolar 1 disorder: Status: Acute (3) OCD (obsessive compulsive disorder): Status: Acute (4) PTSD (post-traumatic stress disorder): Status: Acute DS: Medications Discharge Medications Home Medications: Home Medications Medication Instructions Recorded Confirmed cyanocobalamin (vitamin B-12) 1 tab PO DAILY 12/14/20 08/28/22 1,000 mcg tablet propranolol 20 mg tablet 20 mg PO TID 03/10/22 08/28/22 atorvastatin 10 mg tablet 2 tab PO BEDTIME 08/28/22 08/28/22 divalproex 500 mg tablet,delayed 1,000 mg PO BEDTIME 08/28/22 08/28/22 release fluoxetine 20 mg capsule 4 cap PO QAM 08/28/22 08/28/22 fluticasone 100 mcg-salmeterol 50 1 puff inhalation BID 08/28/22 08/28/22 mcg/dose blistr powdr for inhalation (Wixela Inhub) fluticasone propionate 50 1 spray intranasal DAILY 08/28/22 08/28/22 mcg/actuation nasal spray,suspension furosemide 20 mg tablet 0.5 tab PO DAILY 08/28/22 08/28/22 loratadine 10 mg tablet 1 tab PO DAILY 08/28/22 08/28/22 Previous Rx's Medication Instructions Recorded diazepam 10 mg tablet 10 mg PO BEDTIME 30 days #30 tabs 11/17/21 diazepam 5 mg tablet 5 mg PO BID 30 days #60 tabs 11/17/21 gabapentin 400 mg capsule 1 cap PO TID 30 days #90 caps 11/17/21 lorazepam 1 mg tablet 1 mg PO TID PRN Anxiety 30 days 11/17/21 #90 tabs methylphenidate HCl 20 mg tablet 1 tab PO TID@0800,1200,1600 30 11/17/21 days #90 tabs quetiapine 100 mg tablet 100 mg PO BEDTIME 30 days #30 tabs 11/17/21 quetiapine 25 mg tablet 1 tab PO BID 30 days #60 tabs 11/17/21 Mental Status Exam Mental Status Exam Patient Appearance: Well Grooomed Patient Orientation: Person, Place, Time and Situation Level of Consciousness: Awake and Appropriate Patient Behavior: Appropriate Mood Description: Calm and Appropriate Affect Description: Labile Patient Cognition Impaired: No Ability to Follow Directions: Good Speech Pattern: Clear Hallucinations: None Delusions: Not Present Thought Process: Linear Thought Content: positive for Circumstantial Judgement: Fair Data Data Completed and Pending Completed studies during hospitalization [Text1]: 08/28/22 Unknown Urine clean catch - Clean Catch Midstream Urine Culture - Final Imaging Diagnostic Imaging Impressions Head CT 09/04/22 14:02 IMPRESSION: No acute intracranial pathology. KUB X-Ray 09/04/22 16:27 IMPRESSION: 1. Nonobstructive bowel gas pattern. 2. No fracture identified within the limitations of this exam. Head CT 09/06/22 00:20 IMPRESSION: No acute intracranial abnormality including hemorrhage, mass effect, hydrocephalus, or acute territorial edematous infarction. DS: Summary Hospital Course Hospital Course: The patient is a 67-year-old female, , with a long history of bipolar disorder, borderline personality disorder and PTSD, very well known by this unit since this is her 3rd admission in the last year. The patient was brought into the emergency room since she complained of exacerbation of depression with suicidal ideation. Please see the HPI note on the admission for further details. On interview, the patient initially reported exacerbation of depression as several somatic symptoms that were worked out by a firer retort and a more UAs. Apparently on March or April, she contracted COVID 19 and since then she reported shortness of breath under fatigue. She stated that she has long COVID . We review her medications and I offered several treatment options but finally we decided to mentation of depression with levothyroxine since she is at Prozac 80 mg daily and cross taper her to another antidepressant with David Petty time and most likely will not be as efficacious as Prozac. I contacted his outpatient psychiatrist and he stated that she was supposed to start on TMS but apparently she leg that she had palpitations after the 1st or 2nd treatment. It is clear that TMS does not cause palpitations. While in the unit, she behaved with several symptoms compatible with borderline personality disorder. She was irritable, lab I will, attention seeking a certain point she put a bag over her face in a suicidal gesture. We set up boundaries and limits and eventually the patient reported that she was not suicidal. Since there were no safety concerns discharge planning was discussed. Time spent discussing smoking cessation with patient: 3 to 10 minutes Status at Discharge Cognitive/behavioral status at discharge: At baseline, and she is highly functional Functional status at discharge: independent ambulation Overall status at discharge: patient is back to baseline Time Spent with Patient Time attestation: Total time spent providing and/or coordinating discharge services: Time spent: Less than 30 minutes Discharge Plan Discharge Anticipated Discharge Date/Time: 09/06/22 11:02 Patient Disposition: Home, Self-Care Discharge Diagnosis: Bipolar disorder. Borderline personality disorder. PTSD OCD Referrals: [facility] [Other] - 09/06/22 4:00 pm (Your next appointment with your DBT therapist is 09/06/22 at 4PM.) Dr Mil [facility] [Other] - 09/14/22 1:00 pm (Your next appointment with Dr Jeager is Saturday09/14/22 at 1PM. ) Dr Gary Burgos [Other] - 10/30/22 4:30 pm (Your next appointment with Dr Burgos is scheduled for 10/30/22 at 4:30pm in the [place] office. ) Dr Sonny Parker [Other] - 09/10/22 1:00 pm (Your next PCP appointment is 09/10/22 at 1pm. ) Discharge Medications: New levothyroxine 50 mcg Tablet 50 mcg PO DAILY@0600 30 Days Qty: 30 0RF Continued quetiapine 25 mg tablet 1 tab PO BID 30 Days Qty: 60 0RF atorvastatin 10 mg tablet 2 tab PO BEDTIME 30 Days Qty: 60 0RF methylphenidate HCl 20 mg tablet 1 tab PO TID@0800,1200,1600 30 Days Qty: 90 0RF gabapentin 400 mg capsule 1 cap PO TID 30 Days Qty: 90 0RF quetiapine 100 mg tablet 100 mg PO BEDTIME 30 Days Qty: 30 0RF furosemide 20 mg tablet 0.5 tab PO DAILY 30 Days Qty: 15 0RF lorazepam 1 mg Tablet 1 mg PO TID PRN (Reason: Anxiety) 30 Days Qty: 90 0RF diazepam 10 mg tablet 10 mg PO BEDTIME 30 Days Qty: 30 0RF fluticasone propion-salmeterol [Wixela Inhub] 100-50 mcg/dose blister with device 1 puff INHALATION BID Qty: 1 0RF propranolol 20 mg tablet 20 mg PO TID 30 Days Qty: 90 0RF Protocol: Hold for SBP/HR < HOLD for SBP < : 90 HOLD for HR < : 60 fluticasone propionate 50 mcg/actuation spray,suspension 1 spray intranasal DAILY Qty: 1 0RF diazepam 5 mg tablet 5 mg PO BID 30 Days Qty: 60 0RF Changed cyanocobalamin (vitamin B-12) 1,000 mcg tablet 1,000 mcg PO DAILY Qty: 30 0RF divalproex 500 mg tablet,delayed release (DR/EC) 1,000 mg PO BEDTIME 30 Days Qty: 60 0RF fluoxetine 20 mg capsule 4 cap PO QAM 30 Days Qty: 120 0RF loratadine 10 mg tablet 10 mg PO DAILY 30 Days Qty: 30 0RF Discharge Orders: Discharge Order (Routine); Ordered 09/06/22 Ordered By: Maynor Helms Diet: Advance to usual diet Activity on Discharge: As tolerated Stand Alone Forms: Patient Portal Discharge page Care Plan Goals: Care plan goals achieved in this admission Health Concerns: Continue treatment with outpatient services Plan of Treatment: Continue treatment with his regular psychiatrist and DBT treatment Assessment: Elderly female with borderline personality disorder, bipolar disorder, PTSD and OCD who was admitted for exacerbation of suicidal ideation, currently safe to be in the community.
[2022-09-06] MEDS: Loperamide HCl 2 MG CAPSULE 4 MG PO (11:11)
== END 2022-09-06 14:08 | disposition home or self-care (01) | DRG 885 ==
LOC: HO.ED 06:10 → HO.PGERI 19:24
PROVIDERS: Admitting Provider Psychiatry & Neurology Psychiatry; Emergency Provider Internal Medicine; Visit Provider Psychiatry & Neurology Psychiatry
DX: F31.9 Bipolar disorder, unspecified (principal); R45.851 Suicidal ideations; F60.3 Borderline personality disorder; F42.9 Obsessive-compulsive disorder, unspecified; F43.10 Post-traumatic stress disorder, unspecified; I10 Essential (primary) hypertension; Z20.822 Contact with and (suspected) exposure to COVID-19; Z88.1 Allergy status to other antibiotic agents; Z88.5 Allergy status to narcotic agent; Z88.8 Allergy status to other drugs, medicaments and biological substances; Z79.51 Long term (current) use of inhaled steroids; Z79.890 Hormone replacement therapy; Z79.899 Other long term (current) drug therapy
CPT/HCPCS: 36415; 70450; 73564; 74018; 80053; 80164; 80307; 81001; 85025; 87086; 87635; 93005; 99285